=== PATIENT | male | born 1960 | race Caucasian/White ===

== ENCOUNTER 2017-09-19 06:29 | Day surgery (SDC) | payer OTHER ==
--- NOTE | 2017-09-16 14:34 | RAD REPORT ---
EXAM DESCRIPTION: RAD - Chest Pa And Lat (2 Views) - 09/16/2017 1:59 pm CLINICAL HISTORY: Preop chest, pending right mastectomy, history of left mastectomy for carcinoma wi th chemotherapy and radiation, smoking history COMPARISON: Two view chest October 2012 TECHNIQUE: PA and lateral views of the chest were obtained. FINDINGS: The lungs are clear of failure, mass or infiltrate. Surgical clips overlie the left chest from prior left-side chest soft tissues surgery. Slight fullness of the left hilum has not changed. Heart size is normal and central vasculature is within normal limits. No pleural effusion or pneumo thorax seen. No acute bony finding noted. No aortic abnormality. IMPRESSION: No acute cardiopulmonary process. No suspicious change from prior imaging.
[2017-09-16 15:13] LABS: Absolute Lymphocytes (CBC) 1.4 K/uL (0.7-4.9); Absolute Monocytes 0.6 K/uL (0.1-1.3); Absolute Neutrophil 6.4 K/uL (1.8-8.0); Basophils % 0.6 % (0-1.3); Eosinophils % 0.9 % (0-4.4); Hematocrit 43.8 % (39.6-49.0); Lymphocytes % 16.3 % (15.3-44.8); MCH 28.8 pg (27.0-35.0); MCV 87.3 fL (80-100); MPV 8.4 fL (7.6-11.3); Monocytes % 6.8 % (3.3-12.3); RBC Red Blood Cell Count 5.02 M/uL (4.33-5.43)
[2017-09-16 15:27] LABS: Potassium 4.3 mmol/L (3.5-5.1)
[2017-09-19] MEDS ORDERED: CEFAZOLIN SODIUM 1 GM/VIAL ONE (06:34)
[2017-09-19] MEDS ORDERED: Ringers Lactate 1,000 ML IV ONE (06:35)
[2017-09-19] MEDS ORDERED: CEFAZOLIN/SWI 1gm 1 GM/10 ML SYR ONE (06:36)
[2017-09-19] MEDS ORDERED: PROPOFOL 200 MG/20 ML VIAL IV ONE ×2 (06:55→08:47)
[2017-09-19] MEDS ORDERED: LIDOCAINE 2% MPF 5 ML VIAL ONE (06:56)
[2017-09-19] MEDS ORDERED: FENTANYL CITR 250 MCG/5 ML ONE (06:57)
[2017-09-19] MEDS ORDERED: ONDANSETRON HCL 40 MG/20 ML VIAL ONE (06:59)
[2017-09-19] MEDS ORDERED: BUPIVACAINE 0.5% PF 10 ML VIAL ONE (07:12)
[2017-09-19] MEDS ORDERED: MIDAZOLAM HCL 2 MG/2 ML INJ ONE (07:17)
[2017-09-19] MEDS ORDERED: ROCURONIUM 50 MG/5 ML VIAL IV ONE (07:32)
[2017-09-19] MEDS ORDERED: EPHEDRINE SULF 50 MG/5 ML SYR ONE (07:48)
[2017-09-19] MEDS ORDERED: GLYCOPYRROLATE 0.2 MG/ML SYR ONE (08:06)
[2017-09-19] MEDS ORDERED: NEOSTIGMINE 1 MG/ML -5 ML SYRINGE ONE (08:47)
[2017-09-19] MEDS ORDERED: PROMETHAZINE 25 MG/ML VIAL ONE (09:08)
[2017-09-19] MEDS ORDERED: MEPERIDINE HCL 25 MG/0.5 ML ONE (09:12)
[2017-09-19] MEDS: MEPERIDINE HCL 25 MG/0.5 ML ONE ×2 (09:21→09:27)
[2017-09-19] MEDS ORDERED: CODEINE 30MG/APAP 300MG TAB ONE (10:32)
--- NOTE | 2017-09-19 15:54 | OP ---
Date of Procedure: 09/19/2017 Surgeon: Clayton Montemayor MD [employer] Contact Printer: GABI Wade Preoperative Diagnosis: Left breast cancer and BRCA positive. Postoperative Diagnosis: Left breast cancer and BRCA positive. Procedure: Right simple mastectomy. Estimated Blood Loss: Minimal. Specimen: Right breast. Findings: As above. Anesthesia: General. Complications: None. Drains: LORENZO #10 flat. Disposition: The patient tolerated the procedure in stable condition and taken to the Recovery in go od general condition. Operative Note: The patient was brought to the OR and placed in the supine position. General anesth esia was begun. The patient was prepped and draped in the usual sterile fashion. A 15 blade was use d to make an ellipse of skin including the nipple-areolar complex approximately 15 x 6 cm. Subcutane ous tissue divided. Then, flaps created superior to the clavicle medially to the sternal border, inf eriorly to the insertion of the rectus abdominis muscle, and laterally to the latissimus dorsi. Then , all breast tissue off the pectoralis fascia removed and sent to Pathology. After being appropriate level, entire wound was irrigated and bleeding controlled with cautery, and then LORENZO #10 flat drain p laced and secured with 2-0 nylon and then 2-0 chromic and 3-0 chromic used to approximate the subcuta neous tissue and close the skin. Sterile dressing was applied. The patient was awakened and taken t o Recovery in good general condition. Discharge Note: The patient will go to Day Surgery and home when stable. Disposition: Home. Condition: Stable. Discharge Instructions: Resume home meds and diet. Activity as tolerated. No heavy lifting. Keep dressing clean and dry. Sponge bathe only. Record LORENZO output q.12. Tylenol No. 3 one tablet p.o. q. 4 p.r.n. pain, Keflex 500 mg p.o. q.6. followup in my office in 1 week. Call for appointment. /MODL Voice ID: [id number] Report ID: [id number]
== END 2017-09-19 11:23 | disposition home or self-care (01) ==
LOC: OR 06:29
PROVIDERS: ATTEND Surgery
PROC: 0HTT0ZZ Resection of Right Breast, Open Approach (ICD-10-PCS; principal; 2017-09-19 07:30)
DX: N60.91 Unspecified benign mammary dysplasia of right breast (principal); C50.922 Malignant neoplasm of unspecified site of left male breast
CPT/HCPCS: 19303; 36415; 71046; 80048; 85025; 88307; J0690; J2175 ×2; J2250; J2405; J2550; J2710

== ENCOUNTER 2019-08-26 18:49 | Emergency (ER) | payer OTHER ==
--- OUTSIDE RECORDS SUMMARY | 2019-08-26 18:51 | XMS REPORT | Clinical Summary ---
:1960 Author Organization [facility] Address [address] [place] [address] Care Team Providers Name Role Phone KHOA Driver Primary Care Provider Allergies No Known Allergies Medications Medication Sig Dispensed Refills Start Date End Date Status anastrozole (ARIMIDEX) Take 1 mg by mouth 0 Active 1 mg chemo tablet daily. sacubitril-valsartan Take 1 tablet by 0 Active (ENTRESTO) 97-103 mg mouth 2 (two) tablet per tablet times a day. cholecalciferol, Take 1 capsule by 0 Active vitamin D3, (D3-50 mouth once a week. CHOLECALCIFEROL) 50,000 unit capsule magnesium chloride Take by mouth. 0 Active (NU-MAG ORAL) metoprolol succinate Take 25 mg by 0 Active XL (TOPROL-XL) 25 mg mouth daily. 24 hr tablet Active Problems Problem Noted Date Malignant neoplasm of prostate 11/17/2017 Hypotension 11/17/2017 Arrhythmia 11/17/2017 Family History Relation Name Status Comments Father Mother Alive Social History Tobacco Use Types Packs/Day Years Used Date Former Smoker Cigarettes 2 5 Quit: 1988 Smokeless Tobacco: Current User Snuff Alcohol Use Drinks/Week oz/Week Comments No Sex Assigned at Date Recorded Not on file Job Start Date Occupation Industry Not on file Not on file Not on file Travel History Travel Start Travel End No recent travel history available. Last Filed Vital Signs Not on file Plan of Treatment Health Maintenance Due Date Last Done Comments COLONOSCOPY SCREENING 2008 SHINGLES VACCINES (#1) 2008 INFLUENZA VACCINE 10/23/2019 Implants Implanted Type Area Aoc Airspace Control Officer Device Shelf Model / Identifier Expiration Serial / Date Lot Clip Ligtng Hem-O-Bony Endoscpc Aplr [facility] Lg - [id number] Surgic al N/A: N/A WECK CLOSURE 06/16/2022 [id number] / Implanted: 11/17/2017 at [facility] (Quantity not on file) Im plants; SYSTEMS / Expanders; [id number] Extenders; Surgical Wires Clip Ligtng Hem-O-Bony Endoscpc Aplr Plymr Lg - [id number] Surgic al N/A: N/A WECK CLOSURE 06/16/2022 [id number] / Implanted: 11/17/2017 at [facility] (Quantity not on file) Im plants; SYSTEMS / Expanders; [id number] Extenders; Surgical Wires Clip Ligtng Hem-O-Bony Endoscpc Aplr Plymr Lg - [id number] Surgic al N/A: N/A WECK CLOSURE 06/16/2022 [id number] / Implanted: 11/17/2017 at [facility] (Quantity not on file) Im plants; SYSTEMS / Expanders; [id number] Extenders; Surgical Wires Clip Ligtng Hem-O-Bony Endoscpc Aplr Plymr Lg - [id number] Surgic al N/A: N/A WECK CLOSURE 06/16/2022 [id number] / Implanted: 11/17/2017 at [facility] (Quantity not on file) Im plants; SYSTEMS / Expanders; [id number] Extenders; Surgical Wires Drain Wnd Chnl 19fr 4in Rnd Hbls Fl-Flut W/ /4in Tr ocar - [id number] Surgical N/A: N/A ETHICON DIV OF 02/06/2022 [id number] / Implanted: 11/17/2017 at [facility] (Quantity not on file) Im plants; OTILIO & / Expanders; OTILIO [id number] Extenders; Surgical Wires Results Not on fileafter 08/25/2018 Insurance Payer Benefit Plan / Subscriber ID Effective Dates Phone Addre ss Type Group HUMANA MEDICARE HUMANA MEDICARE xxxxxxxxx 2017-Present PPO PPO/PFFS/[facility] [phone] [id number] (Home) [place] [id number] Advance Directives For more information, please contact: [phone] Type Date Recorded Patient Gold Layer Explanati on Advance Directives, Living Will 11/12/2017 1:22 PM and Medical Power of Supervisor Customer Records Division
--- NOTE | 2019-08-26 22:55 | ER ---
Nurse's Notes [facility] Name: Kev Huitron Age: 58 yrs Sex: Male : 1960 Arrival Date: 08/26/2019 Time: 18:52 Bed 18 Private MD: Diagnosis: Pain and bleeding right ear. Visual disturbance ( Diplopia ) Presentation: 08/25 19:00 Chief complaint: Patient states: thinks he has right ear infection, and has been having iw double vision since Friday, can see close up normally. Coronavirus screen: Proceed with normal triage. Patient denies a cough. Patient denies shortness of breath or difficulty breathing. Patient denies measured and/or subjective temperature greater than 100.4F prior to today's visit. Patient denies travel on a cruise ship or to a country the [facility] currently lists as an affected area. Patient denies contact with known and/or suspected case of COVID-19. Ebola Screen: Patient negative for fever greater than or equal to 101.5 degrees Fahrenheit, and additional compatible Ebola Virus Disease symptoms Patient denies exposure to infectious person. Patient denies travel to an Ebola-affected area in the 21 days before illness onset. No symptoms or risks identified at this time. Initial Sepsis Screen: Does the patient meet any 2 criteria? No. Patient's initial sepsis screen is negative. Does the patient have a suspected source of infection? No. Patient's initial sepsis screen is negative. Risk Assessment: Do you want to hurt yourself or someone else? Patient reports no desire to harm self or others. Onset of symptoms was August 24, 2019. 19:00 Method Of Arrival: Ambulatory iw 19:00 Acuity: ANNEMARIE 3 iw Triage Assessment: 20:39 General: Appears in no apparent distress. comfortable, Behavior is calm, cooperative. ls4 Pain: Complains of pain in right ear. EENT: Reports blurred vision in iris of right eye and iris of left eye since one week. states things at a distance are doubled. Neuro: Level of Consciousness is awake, alert, obeys commands, Oriented to person, place, time, situation, Reports blurred vision diplopia, dizziness. Cardiovascular: Denies chest pain, diaphoresis, fatigue, lightheadedness, nausea, palpitations, shortness of breath, syncope, vomiting. Respiratory: No deficits noted. Denies cough, shortness of breath labored breathing. Historical: - Allergies: 19:04 No Known Allergies; iw - Home Meds: 19:04 anastrozole 1 mg oral tab 1 tab once daily [Active]; Vitamin D Oral daily [Active]; iw Vitamin B-12 Oral [Active]; - PMHx: 19:04 Cancer, Breast; prostate cancer; iw - PSHx: 19:04 prostate removed; Mastectomy, Left; iw - Immunization history:: Adult Immunizations up to date. - Social history:: Smoking status: Patient reports use of chewing tobacco. Screenin:21 VAN Screening: Arm Drift: Patient shows no arm weakness. Patient is VAN negative. ls4 20:38 Abuse screen: Denies threats or abuse. Denies injuries from another. Nutritional ls4 screening: No deficits noted. Tuberculosis screening: No symptoms or risk factors identified. Fall Risk None identified. Assessment: 20:20 General: Appears in no apparent distress. comfortable, Behavior is calm, cooperative. ls4 20:20 Neuro: Level of Consciousness is awake, alert, obeys commands, Oriented to person, ls4 place, time, situation, Reports blurred vision diplopia. Cardiovascular: No deficits noted. Respiratory: No deficits noted. GI: No deficits noted. No signs and/or symptoms were reported involving the gastrointestinal system. : No deficits noted. No signs and/or symptoms were reported regarding the genitourinary system. EENT: Ear canal w/ drainage noted from right ear Reports pain in right ear. Derm: No deficits noted. No signs and/or symptoms reported regarding the dermatologic system. Musculoskeletal: No deficits noted. No signs and/or symptoms reported regarding the musculoskeletal system. 21:30 Reassessment: Patient appears in no apparent distress at this time. Patient and/or ls4 family updated on plan of care and expected duration. Pain level reassessed. Patient is alert, oriented x 3, equal unlabored respirations, skin warm/dry/pink. Patient denies pain at this time. Vital Signs: 19:00 BP 116 / 89; Pulse 51; Resp 16; Temp 98.5; Pulse Ox 98% on R/A; Weight 128.37 kg; iw Height 6 ft. 1 in. (185.42 cm); 22:04 BP 122 / 90; Pulse 59; Resp 18; Pulse Ox 98% on R/A; Pain 0/10; ls4 19:00 Body Mass Index 37.34 (128.37 kg, 185.42 cm) iw Visual Acuity: 22:04 Left Eye Visual acuity 20/30, Normal; Right Eye Visual acuity 20/30, Normal; Both Eyes ls4 Visual acuity 20/30; Without Lenses; ED Course: 18:52 Patient arrived in ED. ag5 19:02 Triage completed. iw 19:04 Arm band placed on. iw 20:20 Martine Tyson, RN is Primary Nurse. ls4 20:21 cardiac monitor on. Pulse ox on. NIBP on. ls4 20:21 Verbal reassurance given. Diet: Patient is NPO. ls4 20:21 EKG done, by ED staff, reviewed by Hunter Lo MD. Patient maintains SpO2 saturation ls4 greater than 95% on room air. 20:38 Patient has correct armband on for positive identification. Bed in low position. Call ls4 light in reach. Side rails up X 1. 21:10 Hunter Lo MD is Attending Physician. pkl 22:02 CT Head Brain wo Cont In Process Unspecified. EDMS 23:21 No provider procedures requiring assistance completed. ls4 Administered Medications: 23:11 Drug: Cipro 500 mg Route: PO; ls4 23:19 Follow up: Response: No adverse reaction ls4 Outcome: 22:53 Discharge ordered by . pkl 23:20 Discharged to home ambulatory. ls4 23:20 Condition: good 23:20 Discharge instructions given to patient, Instructed on discharge instructions, follow up and referral plans. medication usage, Demonstrated understanding of instructions, follow-up care, medications, Prescriptions given X 1, PT QUESTIONED WHY DOCTOR PRESCRIBED ORAL ANTIBIOTICS HE WAS TOLD BY DR LO THAT HE WOULD BE GETTING EAR DROPS. WHEN I ASKED DR LO HE STATED THEY WERE FOR HIS EAR. I LET DR LO KNOW THAT PATIENT WAS ASKING IF THERE WAS A REASON WHY HE WAS TOLD HE WAS GETTING DROPS AND GOT "PILLS" INSTEAD. DR LO STATED THAT HE WAS CONCERNED PT HAD A PUNCTURED EAR DRUM AND THAT HE NEEDS TO SEE ENT DOCTOR TO BE SURE. THIS WAS RELAYED TO PATIENT AND PT STATED HE WOULD FOLLOW UP WITH ENT 23:21 Patient left the ED. ar5 Signatures: Dispatcher [employer] EDMS Hunter Lo MD MD pkl Mame Boyd RN RN iw Martine Tyson RN RN ls4 Patricia Moreira ar5 Hilario Sawyer ag5 Corrections: (The following items were deleted from the chart) 08/26 13:53 08/25 23:11 Response: No adverse reaction; Marked relief of symptoms tony boo4
--- NOTE | 2019-08-26 22:55 | EDPHYS ---
Physician Documentation [facility] Name: Kev Huitron Age: 58 yrs Sex: Male : 1960 Arrival Date: 08/26/2019 Time: 18:52 Bed 18 Private MD: ED Physician Hunter Luis HPI: 08/25 21:23 This 58 yrs old Male presents to ER via Ambulatory with complaints of Vision pkl Problem, Ear Pain. 21:23 The patient presents with pain, that is acute. The complaints affect the right ear. pkl Onset: The symptoms/episode began/occurred 4 day(s) ago. Associated signs and symptoms: Pertinent positives: Having double vision for 4 days. Historical: - Allergies: 19:04 No Known Allergies; iw - Home Meds: 19:04 anastrozole 1 mg oral tab 1 tab once daily [Active]; Vitamin D Oral daily [Active]; iw Vitamin B-12 Oral [Active]; - PMHx: 19:04 Cancer, Breast; prostate cancer; iw - PSHx: 19:04 prostate removed; Mastectomy, Left; iw - Immunization history:: Adult Immunizations up to date. - Social history:: Smoking status: Patient reports use of chewing tobacco. ROS: 21:23 Neck: Negative for injury, pain, and swelling. pkl 21:23 Eyes: Positive for double vision. 21:23 ENT: Positive for ear pain, Bleeding from right ear after using Q tip. 21:23 Cardiovascular: Negative for chest pain. 21:23 Respiratory: Negative for cough, shortness of breath. 21:23 Abdomen/GI: Negative for abdominal pain, nausea, vomiting, and diarrhea. 21:23 Back: Negative for acute changes. 21:23 : Negative for urinary symptoms. 21:23 MS/extremity: Negative for acute changes. 21:23 Skin: Negative for rash. 21:23 Neuro: Negative for altered mental status. Exam: 21:23 Head/Face: Normocephalic, atraumatic. pkl 21:23 Eyes: Periorbital structures: appear normal, Pupils: no acute changes, normal size, Extraocular movements: no acute changes, Conjunctiva: normal, Corneas: are normal, Visual bello: no acute changes, Nystagmus: is not appreciated. 21:23 ENT: External ear(s): Ear canal(s): bleeding, that is minimal, in the right canal, TM's: possible tear. 21:23 Neck: Exam negative for nuchal rigidity. 21:23 Chest/axilla: Exam negative for acute changes. 21:23 Cardiovascular: Rate: normal, Rhythm: regular. 21:23 Respiratory: the patient does not display signs of respiratory distress, Respirations: normal, Breath sounds: are clear throughout. 21:23 Abdomen/GI: Exam negative for acute changes. 21:23 Back: Exam negative for acute changes. 21:23 : Exam negative for acute changes. 21:23 Musculoskeletal/extremity: Exam is negative for acute changes. 21:23 Skin: Exam negative for rash. 21:23 Neuro: Orientation: is normal, Mentation: is normal, Cranial nerves: grossly normal, Motor: is normal. Vital Signs: 19:00 BP 116 / 89; Pulse 51; Resp 16; Temp 98.5; Pulse Ox 98% on R/A; Weight 128.37 kg; iw Height 6 ft. 1 in. (185.42 cm); 22:04 BP 122 / 90; Pulse 59; Resp 18; Pulse Ox 98% on R/A; Pain 0/10; ls4 19:00 Body Mass Index 37.34 (128.37 kg, 185.42 cm) iw Visual Acuity: 22:04 Left Eye Visual acuity 20/30, Normal; Right Eye Visual acuity 20/30, Normal; Both Eyes ls4 Visual acuity 20/30; Without Lenses; MDM: 21:10 Patient medically screened. pkl 22:49 Data reviewed: vital signs, nurses notes, radiologic studies, CT scan. ED course: pkl Discussed CT Scan result. Advised to follow up with Dr. Letty Goff ( Ophthalmology ) and Dr. Fierro ( ENT ) in 2 to 3 days. Patient understood instructions.. 08/25 21:07 Order name: Stroke Swallow Screen; Complete Time: 21:09 4 08/25 21:07 Order name: EKG; Complete Time: 21:08 4 08/25 21:07 Order name: Cardiac monitoring; Complete Time: 21:08 4 08/25 21:07 Order name: EKG - Nurse/Tech; Complete Time: 21:08 4 08/25 21:07 Order name: IV Saline Lock; Complete Time: 21:08 4 08/25 21:07 Order name: Labs collected and sent; Complete Time: 21:08 4 08/25 21:22 Order name: CT Head Brain wo Cont pkl 08/25 21:07 Order name: NPO; Complete Time: 21:08 4 08/25 21:07 Order name: O2 Per Protocol; Complete Time: 21:08 4 04 21:07 Order name: O2 Sat Monitoring; Complete Time: 21:08 4 08/25 21:22 Order name: Visual Acuity; Complete Time: 21:50 pkl Administered Medications: 23:11 Drug: Cipro 500 mg Route: PO; 4 23:19 Follow up: Response: No adverse reaction ls4 Disposition: 08/26/19 22:53 Discharged to Home. Impression: Pain and bleeding right ear. Visual disturbance ( Diplopia ). - Condition is Stable. - Prescriptions for Cipro 500 mg Oral Tablet - take 1 tablet by ORAL route every 12 hours for 7 days; 14 tablet. - Medication Reconciliation Form, Thank You Letter, Antibiotic Education, Prescription Opioid Use form. - Follow up: Private Physician; When: 2 - 3 days; Reason: Re-evaluation by your physician. - Problem is new. - Symptoms are unchanged. Signatures: Dispatcher [employer] EDLA Hunter Luis MD MD pkMame Ling RN RN iw Martine Tyson RN RN ls4 Patricia Moreira ar5 Corrections: (The following items were deleted from the chart) 21: 21:07 HEPATIC FUNCTION+C.LAB.BRZ ordered. [facility] 21:07 TROPONIN (EMERG DEPT USE ONLY)+C.LAB.BRZ ordered. [facility] : 21:07 BASIC METABOLIC PANEL+C.LAB.BRZ ordered. [facility] : 21:07 CBC+H.LAB.BRZ ordered. [facility] : 21:07 PROTIME (+INR)+COAG.LAB.BRZ ordered. [facility] : 21:07 PTT, ACTIVATED+COAG.LAB.BRZ ordered. [facility] 23:21 22:53 08/26/2019 22:53 Discharged to Home. Impression: Pain and bleeding right ear. ar5 Visual disturbance ( Diplopia ). Condition is Stable. Forms are Medication Reconciliation Form, Thank You Letter, Antibiotic Education, Prescription Opioid Use. Follow up: Private Physician; When: 2 - 3 days; Reason: Re-evaluation by your physician. Problem is new. Symptoms are unchanged. pkl
[2019-08-26] MEDS ORDERED: CIPROFLOXACIN HCL 500 MG TAB ONE (23:13)
[2019-08-26 23:26] VITALS: BP 116/89; TEMP 98.5; O2SAT 98
--- NOTE | 2019-08-27 11:52 | EKG ---
Test Date: 2019-08-26 Test Time: 20:41:27 Track Grinder Operator: MAURICIO MEASUREMENT RESULTS: Intervals: Rate: 76 IN: 162 QRSD: 94 QT: 364 QTc: 409 [place]: P: 24 IN: 162 QRS: -15 T: 28 INTERPRETIVE STATEMENTS: Sinus rhythm with frequent premature ventricular complexes Minimal voltage criteria for LVH, may be normal variant Borderline ECG Compared to ECG 09/19/2016 09:23:07 Ventricular premature complex(es) now present Left ventricular hypertrophy now present Sinus bradycardia no longer present Sinus arrhythmia no longer present Electronically Signed On 08-27-19 11:50:14 CDT by Marino Dewitt
--- NOTE | 2019-08-27 21:14 | RAD REPORT ---
EXAM DESCRIPTION: CT Head Without Intravenous Contrast CLINICAL HISTORY: The patient is 58 years old and is Male; Diplopia TECHNIQUE: Axial computed tomography images of the head/brain without intravenous contrast. Sagitt al and coronal reformatted images were created and reviewed. This CT exam was performed using one o r more of the following dose reduction techniques: automated exposure control, adjustment of the mA and/or kV according to patient size, and/or use of iterative reconstruction technique. COMPARISON: No relevant prior studies available. FINDINGS: BRAIN: Unremarkable. The bailey-white matter differentiation is preserved . No hemorrhag e. No significant white matter disease. No edema. No extra-axial fluid collections. VENTRICLES: Unremarkable. No ventriculomegaly. BONES/JOINTS: No acute fracture. SOFT TISSUES: Unremarkable. SINUSES: Unremarkable as visualized. No acute sinusitis. MASTOID AIR CELLS: Unremarkable as visualized. No mastoid effusion. ORBITS: Unremarkable as visualized. IMPRESSION: No acute intracranial findings. The optic nerves appear symmetric. However, if there is continued c oncern, dedicated MRI of the orbits is recommended. Electronically signed by: Zena Ross MD 08/26/2019 10:11 PM CDT Due to temporary technical issues with the PACS/Fluency reporting system, reports are being signed by the in house radiologist without review a sa courtesy to ensure prompt reporting. The interpreting r adiologist is fully responsible for the content of the report.
== END 2019-08-26 23:21 | disposition home or self-care (01) ==
LOC: ER 18:49
DX: H92.21 Otorrhagia, right ear (principal); H53.2 Diplopia; Z85.46 Personal history of malignant neoplasm of prostate; Z85.3 Personal history of malignant neoplasm of breast; Z72.0 Tobacco use
CPT/HCPCS: 70450; 93005; 99285

== ENCOUNTER 2020-08-24 22:03 | Observation (INO) | payer OTHER ==
[2020-08-24 23:24] LABS: Absolute Lymphocytes (CBC) 1.5 K/uL (0.7-4.9); Basophils % 0.6 % (0-1.3); Hematocrit 42.8 % (39.6-49.0); Lymphocytes % 20.1 % (15.3-44.8); MPV 8.2 fL (7.6-11.3); RBC Red Blood Cell Count 4.99 M/uL (4.33-5.43)
[2020-08-24 23:32] LABS: Protime INR 1.01
[2020-08-24] MEDS ORDERED: MORPHINE 2 MG/ML SYR ONE (23:34)
[2020-08-24] MEDS ORDERED: ASPIRIN 81 MG CHEWABLE TABLET ONE (23:34)
[2020-08-24 23:45] LABS: ALT/SGPT 25 U/L (12-78); AST/SGOT 15 U/L (15-37); Albumin 3.7 g/dL (3.4-5.0); Alkaline Phosphatase 54 U/L (45-117); BUN Blood Urea Nitrogen 28 mg/dL (7-18); Bicarbonate 26 mmol/L (21-32); Bilirubin Direct < 0.1 mg/dL (0-0.2); Bilirubin Total 0.3 mg/dL (0.2-1.0); Glucose Level 107 mg/dL (74-106); Magnesium 1.7 mg/dL (1.8-2.4); NT PRO-BNP 64 pg/mL (<125); Potassium 3.8 mmol/L (3.5-5.1); Protein, Total 6.8 g/dL (6.4-8.2); Sodium Level 142 mmol/L (136-145); Troponin (Emerg Dept Use Only) 0.05 ng/mL (0.0-0.045)
--- NOTE | 2020-08-25 01:20 | ER ---
Nurse's Notes [facility] Name: Kev Huitron Age: 59 yrs Sex: Male : 1960 Arrival Date: 08/24/2020 Time: 22:05 Bed 17 Private MD: Diagnosis: Chest pain, unspecified Presentation: 08/24 22:15 Chief complaint: Patient states: Pt reports L neck and chest pain, lightheadness over ad5 past week, saw PCP today and scheduled outpt for stress test, Echo and CT scan later this month. Pt spouse reports pt with "indigestion" /"burping" after eating earlier today, "I know that could be a sign of a heart attack". Denies SOB, palpitations or other c/o. Resp even/unlabored, skin pwd. Coronavirus screen: At this time, the client does not indicate any symptoms associated with coronavirus-19. Ebola Screen: No symptoms or risks identified at this time. Initial Sepsis Screen: Does the patient meet any 2 criteria? No. Patient's initial sepsis screen is negative. Does the patient have a suspected source of infection? No. Patient's initial sepsis screen is negative. Risk Assessment: Do you want to hurt yourself or someone else? Patient reports no desire to harm self or others. Onset of symptoms is unknown. 22:15 Method Of Arrival: Ambulatory ad5 23:07 Acuity: ANNEMARIE 3 ea Triage Assessment: 22:21 General: Appears in no apparent distress. Behavior is calm, cooperative, appropriate ad5 for age. Pain: Complains of pain in L chest, L neck. Neuro: No deficits noted. Cardiovascular: Reports chest pain, lightheadedness. Respiratory: No deficits noted. Historical: - Allergies: 22:21 No Known Allergies; ad5 - Home Meds: 22:21 anastrozole 1 mg Oral tab 1 tab once daily [Active]; Vitamin D Oral daily [Active]; ad5 - PMHx: 22:21 Cancer, Breast; Prostate Cancer; ad5 - Immunization history:: Adult Immunizations unknown. - Social history:: Smoking status: Patient reports use of chewing tobacco. Screenin:48 Abuse screen: Denies threats or abuse. Nutritional screening: No deficits noted. ea Tuberculosis screening: No symptoms or risk factors identified. Fall Risk None identified. Assessment: 23:07 General: Appears uncomfortable, Behavior is calm, cooperative, appropriate for age. ea Pain: Complains of pain in chest. Neuro: Level of Consciousness is awake, alert, obeys commands, Oriented to person, place, time. Cardiovascular: Patient's skin is warm and dry. Respiratory: Airway is patent Respiratory effort is even, unlabored, Respiratory pattern is regular, symmetrical. Derm: Skin is pink, warm \\T\\ dry. 08/25 00:56 Reassessment: Patient and/or family updated on plan of care and expected duration. Pain ea level reassessed. Patient is alert, oriented x 3, equal unlabored respirations, skin warm/dry/pink. Awaiting on CT results. Vital Signs: 08/24 22:15 BP 132 / 98; Pulse 79; Resp 16 S; Temp 96.4(TE); Pulse Ox 94% on R/A; Weight 126.1 kg; ad5 Height 6 ft. 1 in. (185.42 cm); Pain 5/10; 08/25 00:00 BP 162 / 91; Pulse 80; Resp 18; Pulse Ox 98% on R/A; ea 08/24 22:15 Body Mass Index 36.68 (126.10 kg, 185.42 cm) ad5 ED Course: 08/24 22:05 Patient arrived in ED. es 22:22 Arm band placed on left wrist. ad5 22:42 Noemy Ramos, JOSE C is Primary Nurse. ea 22:48 Mark Oliva PA is PHCP. cp 22:48 Hunter Luis MD is Attending Physician. cp 22:49 Patient has correct armband on for positive identification. Bed in low position. Call ea light in reach. Side rails up X2. 23:06 Inserted saline lock: 20 gauge in left forearm, using aseptic technique. ea 23:07 Triage completed. ea 08/25 00:32 CT Aorta for Dissection In Process Unspecified. EDMS 01:20 Leif Morel is Hospitalizing Provider. cp 02:12 No provider procedures requiring assistance completed. Patient admitted, IV remains in ea place. Administered Medications: 08/24 23:20 Drug: morphine 2 mg Route: IVP; Site: left antecubital; ea 08/25 01:07 Follow up: Response: No adverse reaction ea 08/24 23:20 Drug: Aspirin Chewable Tablet 324 mg Route: PO; ea 08/25 01:07 Follow up: Response: No adverse reaction ea 01:58 Drug: Magnesium Sulfate 1 grams Route: IVPB; Infused Over: 1 hrs; Site: left ea antecubital; 02:21 Drug: Lovenox (enoxaparin) 100 mg Route: Sub-Q; Site: right lower abdomen; ea Outcome: 01:20 Decision to Hospitalize by Provider. cp 02:21 Admitted to ER Hold. Please see [facility] for further documentation. ea 02:21 Condition: stable 02:21 Instructed on the need for admit. 17:58 Patient left the ED. kl Signatures: Dispatcher [employer] Mag Veloz RN RN kl Salyer, Edna es Page, Corey, PA PA cp Antunez, Elena RN RN Sathish Carrillo
--- NOTE | 2020-08-25 01:20 | EDPHYS ---
Physician Documentation [facility] Name: Kev Huitron Age: 59 yrs Sex: Male : 1960 Arrival Date: 08/24/2020 Time: 22:05 Bed 17 Private MD: ED Physician Hunter Luis HPI: 08/24 23:10 This 59 yrs old Male presents to ER via Ambulatory with complaints of Neck cp Pain, <24hrs Old, Shoulder Pain, Chest Pain. 23:10 The patient or guardian reports chest pain that is located primarily in the anterior cp chest wall, left. 23:10 Onset: 3 day(s) ago. cp 23:10 The pain radiates to left neck. cp 23:10 The chest pain is described as aching. Duration: The patient or guardian reports cp multiple episodes, that are intermittent. 23:10 Associated signs and symptoms: Pertinent positives: pain of back between shoulder cp blades, intermittent weakness of legs, Pertinent negatives: abdominal pain, cough, lower extremity pain, lower extremity swelling, palpitations, syncope. Modifying factors: the symptoms are aggravated by activity, deep breath, bending forward. Historical: - Allergies: 22:21 No Known Allergies; ad5 - Home Meds: 22:21 anastrozole 1 mg Oral tab 1 tab once daily [Active]; Vitamin D Oral daily [Active]; ad5 - PMHx: 22:21 Cancer, Breast; Prostate Cancer; ad5 - Immunization history:: Adult Immunizations unknown. - Social history:: Smoking status: Patient reports use of chewing tobacco. ROS: 23:15 Constitutional: Negative for body aches, chills, fever, poor PO intake. cp 23:15 Cardiovascular: Positive for chest pain, Negative for edema, palpitations. cp 23:15 Eyes: Negative for injury, pain, redness, and discharge. cp 23:15 Respiratory: Negative for cough, wheezing. cp 23:15 Abdomen/GI: Negative for abdominal pain, nausea, vomiting, and diarrhea. 23:15 Back: Positive for pain at rest, pain with movement, of the between shoulder blades. 23:15 Neuro: Positive for intermittent weakness of legs, Negative for altered mental status, cp headache, speech changes, syncope. 23:15 All other systems are negative. cp Exam: 22:35 ECG was reviewed by the Attending Physician. cp 23:20 Constitutional: The patient appears in no acute distress, alert, awake, cp non-diaphoretic, non-toxic, well developed, well nourished, obese. 23:20 Head/Face: Normocephalic, atraumatic. cp 23:20 Eyes: Periorbital structures: appear normal, Conjunctiva: normal, no exudate, no injection, Sclera: no appreciated abnormality, Lids and lashes: appear normal, bilaterally. 23:20 ENT: External ear(s): are unremarkable, Nose: is normal, Posterior pharynx: Airway: no evidence of obstruction, patent. 23:20 Neck: ROM/movement: is normal, is supple, no meningismus, no nuchal rigidity. 23:20 Chest/axilla: Inspection: normal, Palpation: is normal, no crepitus, no tenderness. 23:20 Cardiovascular: Rate: normal, Rhythm: regular, Pulses: Pulses are 2+ in right radial artery and left radial artery. Heart sounds: murmur, not appreciated, Edema: is not appreciated, JVD: is not appreciated. 23:20 Respiratory: the patient does not display signs of respiratory distress, Respirations: normal, no use of accessory muscles, no retractions, labored breathing, is not present, Breath sounds: are clear throughout, no decreased breath sounds, no stridor, no wheezing. 23:20 Abdomen/GI: Inspection: obese Palpation: abdomen is soft and non-tender, in all quadrants. 23:20 Back: pain, that is mild, of the between shoulder blades, ROM is painful, with all movement. 23:20 Skin: no rash present. 23:20 Neuro: Orientation: to person, place \T\ time. Mentation: is normal, Motor: moves all fours, strength is normal, Sensation: is normal. Vital Signs: 22:15 BP 132 / 98; Pulse 79; Resp 16 S; Temp 96.4(TE); Pulse Ox 94% on R/A; Weight 126.1 kg; ad5 Height 6 ft. 1 in. (185.42 cm); Pain 5/10; 08/25 00:00 BP 162 / 91; Pulse 80; Resp 18; Pulse Ox 98% on R/A; ea 08/24 22:15 Body Mass Index 36.68 (126.10 kg, 185.42 cm) ad5 MDM: 08/24 23:04 Patient medically screened. cp 06/ 01:15 The patient was given aspirin in the Emergency Department. cp 01:15 Data reviewed: vital signs, nurses notes, lab test result(s), EKG, radiologic studies, cp CT scan, and as a result, I will discharge patient. Test interpretation: by ED physician or midlevel provider: ECG. 01:30 Physician consultation: Ronnie COUCH was called at 01:15, was contacted at 01:15, cp regarding admission, to the telemetry unit. patient's condition. 03 23:05 Order name: Basic Metabolic Panel cp 08/24 23:05 Order name: CBC with Diff; Complete Time: 23:40 cp / 23:40 Interpretation: Reviewed. cp 08/24 23:05 Order name: LFT's; Complete Time: 23:55 cp 08/24 23:05 Order name: Magnesium; Complete Time: 23:55 cp 08/24 23:05 Order name: NT PRO-BNP; Complete Time: 23:55 cp 08/24 23:05 Order name: PT-INR; Complete Time: 23:55 cp 08/24 23:05 Order name: Troponin (emerg Dept Use Only); Complete Time: 23:55 cp / 23:55 Interpretation: Abnormal: TROPED 0.05. cp / 23:05 Order name: D-Dimer; Complete Time: 23:55 cp /03 23:06 Order name: Basic Metabolic Panel; Complete Time: 23:55 EDMS 04 01:02 Interpretation: Normal except: CL 110; GLUC 107; BUN 28; GFR 87. cp /04 04:36 Order name: SARS-COV-2 RT PCR; Complete Time: 16:45 EDMS /04 08:10 Order name: Comprehensive Metabolic Panel; Complete Time: 16:45 EDMS /04 08:10 Order name: Troponin I; Complete Time: 16:45 EDMS /04 08:10 Order name: Lipid Profile; Complete Time: 16:45 EDMS /03 22:33 Order name: EKG - Nurse/Tech; Complete Time: 22:33 ad5 08/24 23:05 Order name: EKG; Complete Time: 23:06 cp 08/24 23:05 Order name: Cardiac monitoring; Complete Time: 23:21 cp 06/03 23:05 Order name: IV Saline Lock; Complete Time: 23:21 cp 08/24 23:56 Order name: CT Aorta for Dissection; Complete Time: 16:45 cp 08/25 02:58 Order name: CONS Physician Consult EDSC 08/25 08:10 Order name: T4 Free; Complete Time: 16:45 EDMS 08/25 08:10 Order name: Thyroid Stimulating Hormone; Complete Time: 16:45 EDMS 08/25 08:37 Order name: Urinalysis; Complete Time: 16:45 EDMS 08/25 09:44 Order name: Phosphorus; Complete Time: 16:45 EDMS 08/25 09:44 Order name: Magnesium; Complete Time: 16:45 EDMS 08/25 12:13 Order name: Troponin I; Complete Time: 16:45 EDMS 08/24 23:05 Order name: Labs collected and sent; Complete Time: 23:21 cp 08/24 23:05 Order name: O2 Per Protocol; Complete Time: 23:21 cp 08/24 23:05 Order name: O2 Sat Monitoring; Complete Time: 23:21 cp EC/03 22:35 Rate is 80 beats/min. Rhythm is regular. DE interval is normal. QRS interval is normal. cp QT interval is normal. Interpreted by me. Reviewed by me. Administered Medications: 23:20 Drug: morphine 2 mg Route: IVP; Site: left antecubital; ea 08/25 01:07 Follow up: Response: No adverse reaction 08/24 23:20 Drug: Aspirin Chewable Tablet 324 mg Route: PO; ea 08/25 01:07 Follow up: Response: No adverse reaction 01:58 Drug: Magnesium Sulfate 1 grams Route: IVPB; Infused Over: 1 hrs; Site: left ea antecubital; 02:21 Drug: Lovenox (enoxaparin) 100 mg Route: Sub-Q; Site: right lower abdomen; ea Disposition: 08/25/20 01:20 Hospitalization ordered by Leif Morel for Observation. Preliminary diagnosis is Chest pain, unspecified. - Bed requested for Telemetry/MedSurg (observation). - Status is Observation. kl - Condition is Stable. - Problem is new. - Symptoms have improved. Signatures: Dispatcher [employer] [facility] Juan, Mag, RN RN kl Charles, Kay, RN Mark Barcenas PA PA cp Antunez, Elena, RN RN ea Davidson, Andrea ad5 Corrections: (The following items were deleted from the chart) 01:39 01:20 Hospitalization Ordered by Leif Morel for Observation. Preliminary diagnosis mw is Chest pain, unspecified. Bed requested for Telemetry/MedSurg (observation). Status is Observation. Condition is Stable. Problem is new. Symptoms have improved. cp 02:45 01:17 CORONAVIRUS+MR.LAB.BRZ ordered. EDMS EDMS 16:51 08/24 23:15 Respiratory: Positive for shortness of breath, Negative for cough, cp wheezing, cp 08/25 16:51 08/24 23:15 All other systems are negative, cp cp 08/25 17:21 01:39 08/25/2020 01:20 Hospitalization Ordered by Leif Morel for Observation. kl Preliminary diagnosis is Chest pain, unspecified. Bed requested for [facility]UST ER HOLD. Status is Observation. Condition is Stable. Problem is new. Symptoms have improved. mw 17:58 17:21 08/25/2020 01:20 Hospitalization Ordered by Leif Morel for Observation. kl Preliminary diagnosis is Chest pain, unspecified. Bed requested for Telemetry/MedSurg (observation). Status is Observation. Condition is Stable. Problem is new. Symptoms have improved. kl
[2020-08-25] MEDS ORDERED: Magnesium Sulfate 2gm IVPB 2 G/50 ML BAG IV ONE (02:05)
[2020-08-25] MEDS ORDERED: ENOXAPARIN 100 MG/ML SYR SQ ONE (02:30)
[2020-08-25 03:28] VITALS: BMI 36.6
--- NOTE | 2020-08-25 05:02 | P.HP ---
Certification for Inpatient Patient admitted to: Observation With expected LOS: <2 Midnights Patient will require the following post-hospital care: None Practitioner: I am a practitioner with admitting privileges, knowledge of patient current condition, hospital course, and medical plan of care. Services: Services provided to patient in accordance with Admission requirements found in Title 42 Section 412.3 of the Code of Federal Regulations Patient History Date of Service: 08/25/20 Primary Care Provider: Dr. Chambers Reason for admission: chest pain r/o History of Present Illness: This is a 59 y/o M w/ hx of breast cancer s/p masectomy and prostate cancer s/p prostatectomy who presents today w/ substernal chest pain radiating from neck. He reports the pain started approx 2 weeks ago and feels like the pain starts pulling around his neck when he gets up to stand. Reports some pain relief when laying down. He c/o an upset stomach similar to indigestion, dry cough for several weeks, and episodes of feeling weak and has to sit down. He denies any nausea, vomiting, wheezing, dizziness, lightheadedness. Troponin 0.05, BUN 28. Pt was initially scheduled outpatient w/ Dr. Dewitt for stress test, echo, and CT scan later this month. Will admit for observation due to patient's new complaints of chest pain. CT scan shows "5.0 x3.6 x4.5 cm mass in the superior/anterior mediastinum just anterior to the aortic arch and below the first rib. 1.7 cm lymph nodes in the mediastinum adjavent to the left main pulmonary artery. scattered other small but irregular appearing lymph nodes in the mediastinum. clips in the left axilla. mulitple low-density lesions in the liver measuring up to 1.4 cm in the left lobe. Cannot exclude metastatic disease." Allergies No Known Allergies Allergy (Verified 09/16/17 13:28) Home Medications: Anastrozole [Arimidex] 1 mg PO DAILY 09/16/17 Calcium Carbonate/Vitamin D3 [Calcium 500 + Vit D3 400 Tab] 1 each PO DAILY 09/16/17 Sacubitril/Valsartan [Entresto 97 mg-103 mg Tablet] 1 each PO BID 09/16/17 Trastuzumab [Herceptin] 150 mg IV ONCE 09/16/17 - Past Medical/Surgical History -: prostate cancer -: breast cancer -: masectomy -: prostatectomy -: knees surgery -: back surgery - Family History Family History: Reviewed- Non-Contributory - Family History Sister -: Cancer (breast, stomach) - Social History Smoking Status: Current every day smoker Alcohol use: No CD- Drugs: No Caffeine use: No Place of Residence: Home Review of Systems 10-point ROS is otherwise unremarkable Cardiovascular: As per HPI Physical Examination - Vital Signs Temperature: 97.6 F Blood Pressure: 152/92 Pulse: 58 Respirations: 18 Pulse Ox (%): 95 - Physical Exam General: Alert, In no apparent distress HEENT: Atraumatic, PERRLA, Mucous membr. moist/pink, EOMI, Sclerae nonicteric Neck: Supple, No LAD Respiratory: Clear to auscultation bilaterally, Normal air movement Cardiovascular: Regular rate/rhythm, Normal S1 S2 Capillary refill: <2 Seconds Gastrointestinal: Normal bowel sounds, Soft and benign, Non-distended, No tenderness, No guarding Musculoskeletal: No tenderness Integumentary: No rashes Neurological: Normal speech, Normal tone, Normal affect - Studies Laboratory Data (last 24 hrs) 08/24/20 23:01: PT 12.0, INR 1.01 08/24/20 23:01: WBC 7.30, Hgb 14.4, Hct 42.8, Plt Count 218 08/24/20 23:01: Sodium 142, Potassium 3.8, BUN 28 H, Creatinine 0.89, Glucose 107 H, Magnesium 1.7 L, Total Bilirubin 0.3, AST 15, ALT 25, Alkaline Phosphatas e 54 Assessment and Plan - Problems (Diagnosis) (1) Chest pain Current Visit: Yes Status: Acute Qualifiers: Chest pain type: unspecified Qualified Code(s): R07.9 - Chest pain, unspecified (2) History of breast cancer Current Visit: Yes Status: Chronic (3) History of prostate cancer Current Visit: Yes Status: Chronic (4) Abnormal CT scan Current Visit: Yes Status: Acute - Plan admit for chest pain rule out ordered echo for tomorrow morning repeat ekg continuous telemetry initial troponin 0.05, trend troponins x2 IV bolus for elevated BUN consult cardiology incidental findings on CT scan suspicious for mets. will consult oncology Discharge Plan: Home Plan to discharge in: 24 Hours - Advance Directives Does patient have a Living Will: No Does patient have a Durable POA for Healthcare: No - Code Status/Comfort Care Code Status: Full Code Time Spent Managing Pts Care (In Minutes): 70
[2020-08-25] MEDS: NA CHLORIDE 0.9% 1,000 ML IV SCH ×2 (07:18→09:41)
[2020-08-25] MEDS ORDERED: ACETAMINOPHEN 500 MG TAB PO PRN (07:18)
[2020-08-25] MEDS ORDERED: MORPHINE 2 MG/ML SYR IV PRN (07:18)
[2020-08-25] MEDS ORDERED: NITROGLYCERIN 0.4 MG/TAB SL PRN (07:18)
[2020-08-25 08:08] LABS: ALT/SGPT 28 U/L (12-78); Albumin 3.8 g/dL (3.4-5.0); Alkaline Phosphatase 55 U/L (45-117); BUN Blood Urea Nitrogen 22 mg/dL (7-18); Bicarbonate 30 mmol/L (21-32); Bilirubin Total 0.6 mg/dL (0.2-1.0); Glucose Level 92 mg/dL (74-106); HDL Cholesterol 44 mg/dL (40-60); LDL Cholesterol, Calculated 123 (<130); Protein, Total 7.1 g/dL (6.4-8.2); Sodium Level 142 mmol/L (136-145); Troponin I 0.06 ng/mL (0.0-0.045)
[2020-08-25 08:09] LABS: Potassium 4.4 mmol/L (3.5-5.1)
[2020-08-25 08:10] LABS: AST/SGOT 17 U/L (15-37)
[2020-08-25 08:25] LABS: Urine Appearance CLEAR (Clear); Urine Bilirubin NEGATIVE (Negative); Urine Blood NEGATIVE (Negative); Urine Color YELLOW (Yellow); Urine Glucose NEGATIVE (Negative); Urine Protein NEGATIVE (Negative); Urine Specific Gravity >=1.030 (1.005-1.030); Urine Urobilinogen 0.2 mg/dL (0.2-1.0); Urine pH 5.5 (5.0-7.0)
[2020-08-25 08:36] LABS: Urine Microscopic Reflex NO UMIC
[2020-08-25] MEDS: ENOXAPARIN 40 MG/0.4 ML SQ SCH (09:00)
[2020-08-25 09:09] LABS: Phosphorus 3.2 mg/dL (2.5-4.9)
[2020-08-25] MEDS ORDERED: ENOXAPARIN 40 MG/0.4 ML SQ ONE (09:41)
[2020-08-25 09:44] LABS: Magnesium 1.9 mg/dL (1.8-2.4)
[2020-08-25] MEDS ORDERED: NA CHLORIDE 0.9% 1,000 ML ONE (10:00)
--- NOTE | 2020-08-25 11:29 | ECHO ---
HEIGHT: 6 ft 1 in WEIGHT: 278 lb 0.047 oz DATE OF STUDY: 08/25/[address]: Ronnie Arellano 2-DIMENSIONAL: YES M.MODE: YES DOPPLER: YES COLOR FLOW: YES TDS: YES PORTABLE: NO DEFINITY: NO BUBBLE STUDY: NO DIAGNOSIS: CHEST PAIN CARDIAC HISTORY: CATHERIZATION: NO SURGERY: NO PROSTHETIC VALVE: NO PACEMAKER: NO MEASUREMENTS (cm) DIASTOLIC (NORMALS) SYSTOLIC (NORMALS) IVSd 1.1 (0.6-1.2) LA Diam 2.0 (1.9-4.0) LVEF 40-45% LVIDd 6.2 (3.5-5.7) LVIDs 5.2 (2.0-3.5) %FS 17% LVPWd 1.1 (0.6-1.2) Ao Diam 3.0 (2.0-3.7) 2 DIMENSIONAL ASSESSMENT: RIGHT ATRIUM: NORMAL LEFT ATRIUM: NORMAL RIGHT VENTRICLE: NORMAL LEFT VENTRICLE: NORMAL TRICUSPID VALVE: MITRAL VALVE: PULMONIC VALVE: NORMAL AORTIC VALVE: NORMAL PERICARDIAL EFFUSION: NONE AORTIC ROOT: NORMAL LEFT VENTRICULAR WALL MOTION: MILD GLOBAL HYPOKINESIS. DOPPLER/COLOR FLOW: SEE BELOW. COMMENTS: MILDLY DEPRESSED LEFT VENTRICULAR 40-45%. MILD GLOBAL HYPOKINESIS. MILD MITRAL AND TRICUSPID REGURGITATION. TECHNOLOGIST: Ana HITCHCOCK
[2020-08-25] MEDS: ONDANSETRON 4 MG/2 ML VIAL IV PRN (12:49)
[2020-08-25] MEDS ORDERED: ONDANSETRON 4 MG/2 ML VIAL ONE (13:08)
--- NOTE | 2020-08-25 14:27 | RAD REPORT ---
EXAM DESCRIPTION: CT - Angio Aorta For Dissection - 08/25/2020 6:34 am CLINICAL HISTORY: The patient is 59 years old and is Male; CHEST PAIN TECHNIQUE: Axial computed tomographic angiography images of the chest, abdomen and pelvis with intra venous contrast. Sagittal and coronal reformatted images were created and reviewed. This CT exam was performed using one or more of the following dose reduction techniques: automated exposure cont rol, adjustment of the mA and/or kV according to patient size, and/or use of iterative reconstruction technique. MIP reconstructed images were created and reviewed. COMPARISON: No relevant prior studies available. FINDINGS: VASCULATURE: Aorta: No acute findings. No aortic aneurysm. No dissection. Pulmonary arteries: Unremarkable as visualized. No pulmonary embolism is identified. Great vessels of aortic arch: No acute findings. No dissection. No arterial occlusion or sign ificant stenosis. Celiac trunk and mesenteric arteries: No acute findings. No occlusion or significant stenosis. Renal arteries: No acute findings. No occlusion or significant stenosis. Iliac arteries: No acute findings. No occlusion or significant stenosis. CHEST: Lungs: Unremarkable. No mass. No consolidation. Pleural space: Unremarkable. No significant effusion. No pneumothorax. Heart: Unremarkable. No cardiomegaly. No significant pericardial effusion. Mediastinum: There is a 5.0 x 3.6 x 4.5 cm mass in the superior/anterior mediastinum just anterio r to the aortic arch and below the first rib. ABDOMEN: Liver: There are multiple low-density lesions in the liver measuring up to 1.4 cm in the left lob e. Gallbladder and bile ducts: Gallbladder is not visualized. No ductal dilation. Pancreas: Unremarkable. No ductal dilation. No mass. Spleen: Unremarkable. No splenomegaly. Adrenals: Unremarkable. No mass. Kidneys and ureters: Unremarkable. No hydronephrosis. No solid mass. Stomach and bowel: There is a small 1.5 cm gastric diverticulum. No obstruction. No mucosal thickening. PELVIS: Appendix: The appendix is normal. Bladder: Unremarkable. No mass. Reproductive: The prostate appears absent. CHEST, ABDOMEN and PELVIS: Intraperitoneal space: Unremarkable. No significant fluid collection. No free air. Bones/joints: Fusion hardware at L5-S1 with osseous hypertrophy anteriorly. 8 mm of anterolisthesis of L5 on S1 with bilateral pars defects. No acute fracture. No dislocation. Soft tissues: There are clips in the left axilla. Lymph nodes: There is a 1.7 cm lymph node in the mediastinum adjacent to the left main pulmonary artery. There are scattered other small but irregular appearing lymph nodes in the mediastinum. IMPRESSION: 1. There is a 5.0 x 3.6 x 4.5 cm mass in the superior/anterior mediastinum just anteri or to the aortic arch and below the first rib. 2. There is a 1.7 cm lymph node in the mediastinum adjacent to the left main pulmonary artery. 3. There are scattered other small but irregular appearing lymph nodes in the mediastinum. 4. There are clips in the left axilla. 5. There are multiple low-density lesions in the liver measuring up to 1.4 cm in the left lobe. C annot exclude metastatic disease. Electronically signed by: Stiven Doyle MD 08/25/2020 1:11 AM CDT Due to temporary technical issues with the PACS/Fluency reporting system, reports are being signed by the in house radiologists without review as a courtesy to insure prompt reporting. The interpreting radiologist is fully responsible for the content of the report.
--- NOTE | 2020-08-25 16:10 | CON ---
Date of Consultation: 08/25/2020 Reason For Consultation: Chest pain. History Of Present Illness: A 59-year-old male, history of breast cancer and prostate cancer status post mastectomy and prostatectomy. He was placed on chemotherapy in the past, which caused nonischem ic dilated cardiomyopathy, presented now with chest pain. It is severe. That is getting worse and t he pain travels to his left shoulder, sharp in nature and follows up with Dr. Dewitt and scheduled f or a stress test next week. Denies having any chest pain now. No shortness of breath, but he has be en coughing and that is dry without sputum production. Past Medical History: Breast cancer, prostate cancer, systolic congestive heart failure, nonischemic . Medications: Refer to reconciliation sheet for detailed list. Allergies: NO KNOWN DRUG ALLERGIES. Family History: No premature coronary artery disease or cancer. Social History: Is a smoker. Does not drink or use any drugs. Review of Systems: All systems reviewed and they were negative except what mentioned in the HPI. Physical Examination: Vital Signs: Temperature is 97.6, pulse 58, breathing 18, blood pressure 152/92, satting 95%. General: pleasant middle-aged male, in no distress. Head and neck: Pupils are equal, reactive to light. Intact eye movements. No JVD. No cervical lym phadenopathy. Neck is supple. Thyroid is not enlarged. Lungs: Clear to auscultation bilaterally. No rhonchi, rales, or crackles. No accessory muscle use. Heart: Regular rate and rhythm. No extra sounds. Abdomen: Soft, nontender. Bowel sounds positive. No masses or hernia. No rigidity or rebound. Extremities: No edema, clubbing, cyanosis. Intact pulses. Skin: No rash noted. Neurologic: Alert, awake, oriented x3. No acute focal deficits appreciated. Investigation: Creatinine 0.89. Troponin 0.05. Hemoglobin is 14.4. Assessment And Recommendation: 1.Chest pain, borderline troponin, but known to have systolic congestive heart failure. Admit for o bservation to assess cardiac enzymes and obtain echo. Start him on aspirin and please trend 3 sets o f cardiac enzymes. 2.History of breast cancer. The CT scan is suspicious for metastasis. Recommend Oncology evaluatio n. 3.Systolic congestive heart failure. Obtain echo to update the status of the ejection fraction and plan accordingly. Thank you for the consult. SR/ILIR Voice ID: [id number] Report ID: [id number]
--- NOTE | 2020-08-25 19:37 | P.PN ---
Date of Service: 08/25/20 Patient seen and examined. He denies any chest pain. I discussed with him the CT scan results reporting mediastinal masses and possible liver metastasis. Patient was emotion. History of breast cancer and prostate cancer. Follow up with Dr. Cotton as an outpatient for biopsies and treatment discussed. Patient seen by cardiology. Troponin trended flat. ACS is not likely. Echocardiogram unchanged from previous. EF 40-45%. Cardiology recommend monitoring overnight. Continue anastrozole. Pain medication as needed.
[2020-08-25] MEDS ORDERED: ANASTROZOLE 1 MG TAB PO SCH (21:00)
[2020-08-25] MEDS ORDERED: ATORVASTATIN 20 MG TAB PO SCH (21:00)
[2020-08-26 05:54] LABS: Absolute Lymphocytes (CBC) 1.1 K/uL (0.7-4.9); Basophils % 0.2 % (0-1.3); Hematocrit 41.5 % (39.6-49.0); Lymphocytes % 15.6 % (15.3-44.8); RBC Red Blood Cell Count 4.87 M/uL (4.33-5.43)
[2020-08-26 06:07] LABS: BUN Blood Urea Nitrogen 19 mg/dL (7-18); Bicarbonate 29 mmol/L (21-32); Glucose Level 104 mg/dL (74-106); Magnesium 1.8 mg/dL (1.8-2.4); Phosphorus 3.7 mg/dL (2.5-4.9); Potassium 4.1 mmol/L (3.5-5.1); Sodium Level 141 mmol/L (136-145)
[2020-08-26] MEDS: ENOXAPARIN 40 MG/0.4 ML SQ SCH (08:28)
[2020-08-26] MEDS ORDERED: MAGNESIUM SULFATE 1 gm IVPB 1 GM/100 ML BAG IV ONE (09:00)
[2020-08-26 09:44] VITALS: O2SAT 94
[2020-08-26] MEDS: ONDANSETRON 4 MG/2 ML VIAL IV PRN (09:50)
--- NOTE | 2020-08-26 11:31 | P.DS ---
Admission Date: 08/25/20 Discharge Date: 08/26/20 Primary Care Provider: Dr. Chambers Disposition: ROUTINE DISCHARGE Discharge Condition: FAIR Reason for Admission: chest pain r/o Consultations: Cardiology-Dr. De Leon. - Problems (1) Chest pain Current Visit: Yes Status: Acute Qualifiers: Chest pain type: unspecified Qualified Code(s): R07.9 - Chest pain, unspecified (2) History of breast cancer Current Visit: Yes Status: Chronic (3) History of prostate cancer Current Visit: Yes Status: Chronic (4) Elevated troponin Current Visit: Yes Status: Acute (5) Asymptomatic LV dysfunction Current Visit: Yes Status: Acute Brief History of Present Illness: 59-year-old gentleman with a past medical history of breast cancer status bilateral mastectomy, history of prostate cancer presents to the emergency department with a complaint of chest pain, heart burn no feeling of indigestion. His initial troponin was mildly elevated in the ED. Patient was scheduled to have echocardiogram and stress test done with Dr. Dewitt. He was also supposed to have a CT scan done. CT dissection done reported mediastinal mass and multiple mediastinal lymph nodes, as well as nodules in the liver suspicious for metastatic disease. Patient hospitalized for further management. Hospital Course: Patient placed under observation on the medical floor. Troponin mildly elevated but trended flat. Echocardiogram was done which showed LV dysfunction, EF 40- 45%, no wall motion abnormality. Patient seen and evaluated by cardiology. Patient diagnosed with type 2 NSTEMI due to demand ischemia. He was asymptomatic during the hospital stay. Dr. Cotton was contacted regarding possible cancer recurrence. Patient is clinically stable. He is discharged to follow with Dr. Casarez as an outpatient for further evaluation and management. Vital Signs/Physical Exam: Temp Pulse Resp BP Pulse Ox 97.1 F 66 16 123/91 H 94 08/26/20 08:00 08/26/20 08:00 08/26/20 08:00 08/26/20 08:00 08/26/20 08:00 General: Alert, In no apparent distress, Oriented x3 HEENT: Mucous membr. moist/pink, Sclerae nonicteric Neck: JVD not distended Respiratory: Clear to auscultation bilaterally, Normal air movement Cardiovascular: No edema, Regular rate/rhythm, Normal S1 S2 Gastrointestinal: Soft and benign, Non-distended, No tenderness Musculoskeletal: No swelling Integumentary: No rashes Neurological: Normal strength at 5/5 x4 extr Laboratory Data at Discharge: WBC 7.30 K/uL (4.3-10.9) 08/26/20 05:22 Hgb 14.1 g/dL (13.6-17.9) 08/26/20 05:22 Hct 41.5 % (39.6-49.0) 08/26/20 05:22 Plt Count 199 K/uL (152-406) 08/26/20 05:22 PT 12.0 SECONDS (9.2-12.8) 08/24/20 23:01 INR 1.01 08/24/20 23:01 Sodium Cancelled 08/26/20 07:18 Potassium Cancelled 08/26/20 07:18 BUN Cancelled 08/26/20 07:18 Creatinine Cancelled 08/26/20 07:18 Glucose Cancelled 08/26/20 07:18 Phosphorus 3.7 mg/dL (2.5-4.9) 08/26/20 05:22 Magnesium 1.8 mg/dL (1.8-2.4) 08/26/20 05:22 Total Bilirubin Cancelled 08/26/20 07:18 AST Cancelled 08/26/20 07:18 ALT Cancelled 08/26/20 07:18 Alkaline Phosphatase Cancelled 08/26/20 07:18 Troponin I 0.06 ng/mL (0.0-0.045) H 08/25/20 11:33 Triglycerides 111 mg/dL (<150) 08/25/20 07:26 Cholesterol 189 mg/dL (<200) 08/25/20 07:26 HDL Cholesterol 44 mg/dL (40-60) 08/25/20 07:26 Cholesterol/HDL Ratio 4.30 08/25/20 07:26 Home Medications: Anastrozole [Arimidex*] 1 mg PO BEDTIME 09/16/17 Diet: AHA Activity: Ad greg Followup: ALAINA FOLEY [Primary Care Provider] - Gabrielle Epps MD [ACTIVE - CAN ADMIT] - 1 Week
[2020-08-26 12:02] VITALS: BP 137/72; TEMP 97.8
== END 2020-08-26 12:20 | disposition home or self-care (01) ==
LOC: ER 22:03 → ERHOLD 08-25 02:57 → 2ND 08-25 17:56
PROVIDERS: ADMIT Internal Medicine; ATTEND Internal Medicine
DX: I21.A1 Myocardial infarction type 2 (principal); I50.22 Chronic systolic (congestive) heart failure; R22.2 Localized swelling, mass and lump, trunk; K76.9 Liver disease, unspecified; R05 Cough; Z20.822 Contact with and (suspected) exposure to COVID-19; F17.220 Nicotine dependence, chewing tobacco, uncomplicated; Z85.3 Personal history of malignant neoplasm of breast; Z85.46 Personal history of malignant neoplasm of prostate; Z90.13 Acquired absence of bilateral breasts and nipples; Z90.79 Acquired absence of other genital organ(s); Z80.3 Family history of malignant neoplasm of breast; Z80.0 Family history of malignant neoplasm of digestive organs
CPT/HCPCS: 93005 ×2; 93306; 85025 ×2; 80048 ×2; 36415 ×2; 83735 ×3; 84100 ×2; 85610; 80061; 85379; 80076; 84443; 81003; 84484 ×3; 84439; 80053; 83880; 71275; 74175; 94760 ×2; 96375; 96372; 96374; 99285; U0003; Q9967; J1650 ×2; J2270; J3475; J7030; J2405 ×2; G0378 ×3

== ENCOUNTER → 2020-09-11 | Day surgery (SDC) | payer OTHER ==
[~2020-09-11] MED LIST: FENTANYL CITR 100 MCG/2 ML ONE; MIDAZOLAM HCL 2 MG/2 ML INJ ONE; NA CHLORIDE 0.9% 1,000 ML ONE; NALOXONE 0.4 MG/ML VIAL ONE; SODIUM HYPOCHLORITE 0.25% 473 ML ONE
[2020-09-11 12:10] VITALS: BMI 36.9
[2020-09-11 13:01] VITALS: BP 114/83; TEMP 98; O2SAT 93
--- NOTE | 2020-09-11 13:29 | RAD REPORT ---
EXAM DESCRIPTION: US - Percutaneous Biopsy Lung - 09/11/2020 11:28 am CLINICAL HISTORY: CHEST WALL MASS COMPARISON: Angio Aorta For Dissection dated 08/25/2020 TECHNIQUE: Patient presents for image guided biopsy of an anterior upper chest mass. Prior imaging s howed mediastinal and in chest wall mass lesion with bone destructive changes. Preliminary sonographic imaging was performed and was able to visualize the mass has distinguishable from adjacent bone, muscle and fatty tissue. Ultrasound-guided biopsy was selected as the imaging mod ality. IV access and physiologic monitors were in place. The procedure, risks and alternatives were discusse d with the patient in detail. After answering all questions both oral and written consent were obtain ed. Patient had no contraindicated allergy or medication history. Time-out procedure performed. The patient was pre-medicated with Versed at 1.0 milligrams IV and fentanyl 50 micrograms IV. The upp er chest was prepped and draped in the usual sterile fashion. From a right lateral approach the skin and deeper tissues were anesthetized with 1% lidocaine. Under ultrasound guidance a 17 gauge introduc er needle was advanced. The tip of the needle was placed along the right lateral margin of the midlin e chest wall mass. Under sonographic guidance an 18 gauge biopsy needle was advanced through the intr oducer. Biopsy needle was seen to traverse the mass and a 2 centimeter core biopsy was obtained. Usin g the same introducer needle 2 additional core biopsies were obtained of the mass using sonographic g uidance. All obtained biopsy material was given to pathology for assessment. The introducer needle was withdrawn. Direct pressure was applied to the mass and skin access site. He mostasis was obtained in sterile bandage placed to the puncture site. Postprocedure care and precauti on instructions were given to the patient. IMPRESSION: Ultrasound-guided core biopsy was performed of the midline upper chest wall mass. All ob tained material was given to pathology for histologic assessment. Patient tolerated procedure well with no immediate complications.
== END ==
LOC: DS 09:23
PROVIDERS: ATTEND Internal Medicine Hematology & Oncology
PROC: 0JB60ZX Excision of Chest Subcutaneous Tissue and Fascia, Open Approach, Diagnostic (ICD-10-PCS; principal; 2020-09-11)
PROC: BH4BZZZ Ultrasonography of Chest Wall (ICD-10-PCS; 2020-09-11)
DX: C79.89 Secondary malignant neoplasm of other specified sites (principal); C50.122 Malignant neoplasm of central portion of left male breast; C78.7 Secondary malignant neoplasm of liver and intrahepatic bile duct
CPT/HCPCS: 36415; 88305; 85730; 21550; 76942; J2250; J3010; J7030; J2310

== ENCOUNTER 2022-10-16 09:37 | Inpatient (IN) | payer OTHER ==
[2022-10-16 10:47] LABS: Absolute Lymphocytes (CBC) 1.1 K/uL (0.7-4.9); Hematocrit 41.6 % (39.6-49.0); MCV 91.4 fL (80-100); MPV 6.8 fL (7.6-11.3); RBC Red Blood Cell Count 4.55 M/uL (4.33-5.43)
[2022-10-16 10:48] LABS: Protime INR 1.13
[2022-10-16 11:09] LABS: Albumin 3.3 g/dL (3.4-5.0); Bilirubin Direct 0.1 mg/dL (0-0.2); Bilirubin Indirect, Calculated 0.4 mg/dL (0.2-0.8); Bilirubin Total 0.5 mg/dL (0.2-1.0); Magnesium 1.7 mg/dL (1.6-2.4); Potassium 4.1 mEq/L (3.5-5.1); Protein, Total 6.9 g/dL (6.4-8.2)
[2022-10-16 11:12] LABS: Troponin High Sensitivity 76.7 pg/mL (<58.9)
--- NOTE | 2022-10-16 12:08 | RAD REPORT ---
EXAM DESCRIPTION: CT - Chest For Pe Angio - 10/16/2022 11:49 am CLINICAL HISTORY: Shortness of breath COMPARISON: September 25, 2022 TECHNIQUE: Dynamically enhanced axial 3 mm thick images of the chest were obtained during administra tion of 100 mL Isovue 370 IV contrast. Coronal and oblique reconstruction images were generated and r eviewed. Exam utilizes a protocol for optimal evaluation of pulmonary arterial tree. Maximum intensity projections 3D imaging was utilized All CT scans are performed using dose optimization technique as appropriate and may include automated exposure control or mA/KV adjustment according to patient size. FINDINGS: A pulmonary embolus is not seen. A thoracic aortic aneurysm is not noted. Small pleural effusions. A pericardial effusion is not seen. Bilateral lung nodules with mild reticulonodular opacities and mild left upper lobe patchy opacity un changed. Mediastinal and hilar lymphadenopathy unchanged Stable sclerotic lesions IMPRESSION: Negative for a pulmonary embolism. Stable mediastinal and hilar lymphadenopathy Bilateral lung nodules with mild reticulonodular opacities and mild left upper lobe patchy opacity un changed. All of this may be infectious. Given the nodules and mediastinal and hilar lymphadenopathy n eoplasm is another consideration
--- NOTE | 2022-10-16 12:16 | RAD REPORT ---
EXAM DESCRIPTION: Hannah Single View10/16/2022 10:08 am CLINICAL HISTORY: Bradycardia/cough COMPARISON: September FINDINGS: Small bilateral pulmonary nodules. Mild bilateral reticulonodular opacities. Mild patchy left upper lobe opacity. All of this is without significant change Mild mediastinal and hilar lymphadenopathy is unchanged. Heart is normal size IMPRESSION: Bilateral pulmonary opacities may all be infectious. Another consideration is that this is in part the metastases. Mild mediastinal and hilar lymphadenopathy
--- NOTE | 2022-10-16 12:23 | ER ---
Nurse's Notes [facility] Name: Kev Huitron Age: 61 yrs Sex: Male : 1960 Arrival Date: 10/16/2022 Time: 09:37 Bed 4 Private MD: Diagnosis: NSTEMI, dyspnea, pneumonia, lung cancer Presentation: 10/16 09:54 Chief complaint: Patient states: Dizzy when he went to get blood work today, HR 33. ll1 Sent in for evaluation. Cough for 4 months. Currently on chemo for breast CA. Coronavirus screen: Vaccine status: Patient reports receiving the 2nd dose of the covid vaccine. Client denies travel out of the [place] in the last 14 days. cough unrelated to allergies, fatigue, Client presents with at least one sign or symptom that may indicate coronavirus-19. Standard/surgical mask placed on the client. Ebola Screen: Patient denies travel to an Ebola-affected area in the 21 days before illness onset. Initial Sepsis Screen: Does the patient meet any 2 criteria? No. Patient's initial sepsis screen is negative. Does the patient have a suspected source of infection? No. Patient's initial sepsis screen is negative. Risk Assessment: Do you want to hurt yourself or someone else? Patient reports no desire to harm self or others. Onset of symptoms was October 16, 2022. 09:54 Method Of Arrival: Wheelchair ll1 09:54 Acuity: ANNEMARIE 2 ll1 Triage Assessment: 09:56 General: Appears uncomfortable, Behavior is calm, cooperative, appropriate for age. ll1 Pain: Denies pain. Neuro: Reports dizziness, weakness. Cardiovascular: Reports low HR. Respiratory: Reports cough that is. Historical: - Allergies: 09:53 No Known Allergies; ll1 - PMHx: 09:53 Cancer, Breast; Prostate Cancer; ll1 - PSHx: 09:53 back, knee; ll1 - Immunization history:: Client reports receiving the 2nd dose of the Covid vaccine. - Social history:: Smoking status: Patient reports use of chewing tobacco. Patient denies any tobacco usage or history of. Screenin:43 [facility] ED Fall Risk Assessment (Adult) History of falling in the last 3 months, db including since admission No falls in past 3 months (0 pts) Confusion or Disorientation No (0 pts) Intoxicated or Sedated No (0 pts) Impaired Gait No (0 pts) Mobility Assist Device Used No (0 pt) Altered Elimination No (0 pt) Score/Fall Risk Level 0 - 2 = Low Risk Oriented to surroundings, Maintained a safe environment. Abuse screen: Denies threats or abuse. Denies injuries from another. Nutritional screening: No deficits noted. Tuberculosis screening: No symptoms or risk factors identified. Assessment: 10:05 Reassessment: Patient appears in no apparent distress at this time. Patient and/or db family updated on plan of care and expected duration. Pain level reassessed. Patient is alert, oriented x 3, equal unlabored respirations, skin warm/dry/pink. patient states is here for low pulse. was at [facility] for check up and labs. General: Appears in no apparent distress. comfortable, Behavior is calm, cooperative. Pain: Denies pain. Neuro: Level of Consciousness is awake, alert, obeys commands, Oriented to person, place, time, situation. Cardiovascular: Capillary refill < 3 seconds Patient's skin is warm and dry. 11:10 Reassessment: No changes from previously documented assessment. To PACU for US IV line. ll1 Accompanied by EVY Cunningham. 11:21 Reassessment: multiple attempts for IV access by 5 staff members. Physician notified. db Patient to receive IV ultrasound IV by hospital staff member. 12:20 Reassessment: Patient appears in no apparent distress at this time. Patient and/or db family updated on plan of care and expected duration. Pain level reassessed. Patient is alert, oriented x 3, equal unlabored respirations, skin warm/dry/pink. General: Appears in no apparent distress. comfortable, Behavior is calm, cooperative. 13:30 Reassessment: Patient appears in no apparent distress at this time. Patient and/or db family updated on plan of care and expected duration. Pain level reassessed. Patient is alert, oriented x 3, equal unlabored respirations, skin warm/dry/pink. General: Appears in no apparent distress. comfortable, Behavior is calm, cooperative. 14:20 Reassessment: Called unit to give report . States nurse is taking someone to Dialysis db and will call back. 15:38 Reassessment: REPORT CALLED TO JOSE C PACHECO. db Vital Signs: 09:45 BP 157 / 87; Pulse 37; Resp 20; Pulse Ox 95% on R/A; db 09:54 BP 157 / 87; Pulse 37; Resp 18; Temp 98.5(O); Pulse Ox 96% on R/A; Weight 125.65 kg; ll1 Height 6 ft. 1 in. ; Pain 0/10; 10:56 Pulse 89; Resp 18; Pulse Ox 94% on R/A; db 11:50 BP 132 / 93; Pulse 41; Resp 18; Pulse Ox 96% on R/A; db 12:30 BP 146 / 108; Pulse 54; Resp 16; Pulse Ox 94% on R/A; db 13:30 BP 163 / 71; Pulse 79; Resp 16; Pulse Ox 95% on R/A; db 09:54 Body Mass Index 36.55 (125.65 kg, 185.42 cm) ll1 09:54 Pain Scale: Adult ll1 09:54 HR 33-40 on pulse ox throughout triage ll1 ED Course: 09:41 Patient arrived in ED. mg5 09:48 Elenita Calderon MD is Attending Physician. sp3 09:50 Sharon Robert, JOSE C is Primary Nurse. ko1 09:53 Arm band placed on Patient placed in an exam room, on a stretcher. ll1 09:56 Triage completed. ll1 10:10 XRAY Chest (1 view) In Process Unspecified. EDMS 10:15 Missed attempt(s): 22 gauge in right antecubital area. Bleeding controlled, band aid db applied, catheter tip intact. 10:34 Missed attempt(s): 22 gauge in right forearm. Bleeding controlled, band aid applied, ll1 catheter tip intact. 10:40 Initial lab(s) drawn, by ED staff, sent to lab. db 10:56 Missed attempt(s): 22 gauge in right wrist. Bleeding controlled, band aid applied, db catheter tip intact. 11:12 Notified ED physician of a critical lab result(s). troponin 76.7. ll1 11:50 CT Chest For PE Angio In Process Unspecified. EDMS 12:19 Inserted saline lock: in right upper arm, using aseptic technique. ,using aseptic db technique. 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 12:23 Demarco Sabillon MD is Hospitalizing Provider. sp3 12:30 First set of blood cultures drawn by me. db 12:45 Second set of blood cultures drawn by me. db 15:40 Patient has correct armband on for positive identification. Bed in low position. Call db light in reach. Side rails up X 1. Provided Education on: ADMISSION. 15:40 No provider procedures requiring assistance completed. Patient admitted, IV remains in db place. Administered Medications: 12:59 Drug: Cefepime IVPB 2 grams Route: IVPB; Rate: 200 ml/hr; Infused Over: 30 mins; Site: db right upper arm; Medication: 15:41 VIS not applicable for this client. db Outcome: 12:23 Decision to Hospitalize by Provider. sp3 15:40 Admitted to ER Hold. [facility]. db 15:40 Condition: stable 15:40 Instructed on the need for admit. 16:27 Patient left the ED. ko1 Signatures: Dispatcher [employer] EDSherwin Anderson RN RN ll1 Elenita Calderon MD MD sp3 Sharon Robert RN RN ko1 Chiquita Fonseca RN RN db Floresita Scherer mg5 Corrections: (The following items were deleted from the chart) 11:12 11:12 Notified ED physician of a critical lab result(s). troponin 78.6 ll1 ll1
--- NOTE | 2022-10-16 12:23 | EDPHYS ---
Physician Documentation [facility] Name: Kev Huitron Age: 61 yrs Sex: Male : 1960 Arrival Date: 10/16/2022 Time: 09:37 Bed 4 Private MD: ED Physician Elenita Calderon HPI: 10/16 10:08 This 61 yrs old Male presents to ER via Wheelchair with complaints of Chest pain, sp3 shortness of breath, low pulse. 10:09 61-year-old male with a history of active breast cancer, resolved prostate cancer, now sp3 currently on chemotherapy being treated by Dr. Casarez and also sees Dr. Dewitt now presents with chief complaint shortness of breath x2 days, chest pain, and perceived low pulse. Patient has no prior history of DVT or PE. Symptoms of been slow and insidious in nature. He denies any fever, night sweats, cough, congestion, URI symptoms, known sick contacts, travel history, headache, neck pain, abdominal pain, nausea, vomiting, diarrhea, syncope, near syncope, focal neurodeficit, or any other signs or symptoms at this time on ROS.. Historical: - Allergies: 09:53 No Known Allergies; ll1 - PMHx: 09:53 Cancer, Breast; Prostate Cancer; ll1 - PSHx: 09:53 back, knee; ll1 - Immunization history:: Client reports receiving the 2nd dose of the Covid vaccine. - Social history:: Smoking status: Patient reports use of chewing tobacco. Patient denies any tobacco usage or history of. ROS: 10:11 Constitutional: Negative for fever, chills, and weight loss, Eyes: Negative for injury, sp3 pain, redness, and discharge, ENT: Negative for injury, pain, and discharge, Neck: Negative for injury, pain, and swelling, Abdomen/GI: Negative for abdominal pain, nausea, vomiting, diarrhea, and constipation, Back: Negative for injury and pain, MS/Extremity: Negative for injury and deformity, Skin: Negative for injury, rash, and discoloration, Neuro: Negative for headache, weakness, numbness, tingling, and seizure, Psych: Negative for depression, anxiety, suicide ideation, homicidal ideation, and hallucinations, Allergy/Immunology: Negative for hives, rash, and allergies, Endocrine: Negative for neck swelling, polydipsia, polyuria, polyphagia, and marked weight changes. 10:11 All other systems are negative. Exam: 10:11 Constitutional: This is a well developed, well nourished patient who is awake, alert, sp3 and in no acute distress. Head/Face: Normocephalic, atraumatic. Eyes: Pupils equal round and reactive to light, extra-ocular motions intact. Lids and lashes normal. Conjunctiva and sclera are non-icteric and not injected. Cornea within normal limits. Periorbital areas with no swelling, redness, or edema. ENT: Nares patent. No nasal discharge, no septal abnormalities noted. External auditory canals are clear. Oropharynx with no redness, swelling, or masses, exudates, or evidence of obstruction, uvula midline. Mucous membranes moist. Neck: Trachea midline, no thyromegaly or masses palpated, and no cervical lymphadenopathy. Supple, full range of motion without nuchal rigidity, or vertebral point tenderness. No Meningismus. Chest/axilla: Normal chest wall appearance and motion. Nontender with no deformity. No lesions are appreciated. Respiratory: Lungs have equal breath sounds bilaterally, clear to auscultation and percussion. No rales, rhonchi or wheezes noted. No increased work of breathing, no retractions or nasal flaring. Abdomen/GI: Soft, non-tender, with normal bowel sounds. No distension or tympany. No guarding or rebound. No evidence of tenderness throughout. Back: No spinal tenderness. No costovertebral tenderness. Full range of motion. Skin: Warm, dry with normal turgor. Normal color with no rashes, no lesions, and no evidence of cellulitis. MS/ Extremity: Pulses equal, no cyanosis. Neurovascular intact. Full, normal range of motion. Neuro: Awake and alert, GCS 15, oriented to person, place, time, and situation. Cranial nerves II-XII grossly intact. Motor strength 5/5 in all extremities. Sensory grossly intact. Cerebellar exam normal. Normal gait. Psych: Awake, alert, with orientation to person, place and time. Behavior, mood, and affect are within normal limits. 10:11 Cardiovascular: Patient has irregularly irregular heartbeat. See EKG for further details.. 10:11 ECG was reviewed by the Attending Physician. EKG demonstrates normal sinus rhythm with PVC after every normal beat with normal intervals, leftward axis, nonspecific diffuse ST/T changes without evidence of acute ischemia. This is different from prior EKG dated August 25, 2020 which point only occasional PVC was noted. Vital Signs: 09:45 BP 157 / 87; Pulse 37; Resp 20; Pulse Ox 95% on R/A; db 09:54 BP 157 / 87; Pulse 37; Resp 18; Temp 98.5(O); Pulse Ox 96% on R/A; Weight 125.65 kg; ll1 Height 6 ft. 1 in. ; Pain 0/10; 10:56 Pulse 89; Resp 18; Pulse Ox 94% on R/A; db 11:50 BP 132 / 93; Pulse 41; Resp 18; Pulse Ox 96% on R/A; db 12:30 BP 146 / 108; Pulse 54; Resp 16; Pulse Ox 94% on R/A; db 13:30 BP 163 / 71; Pulse 79; Resp 16; Pulse Ox 95% on R/A; db 09:54 Body Mass Index 36.55 (125.65 kg, 185.42 cm) ll1 09:54 Pain Scale: Adult ll1 09:54 HR 33-40 on pulse ox throughout triage ll1 MDM: 09:49 Patient medically screened. sp3 10:12 Data reviewed: vital signs, nurses notes, old medical records, lab test result(s), EKG, sp3 radiologic studies. ED course: 61-year-old male with active breast cancer now with shortness of breath, chest pain and palpitations. Differential diagnosis is broad and includes pulmonary embolism, acute coronary syndrome, electrolyte abnormality, pneumonia, among others. Patient does have pulmonary metastases from his breast cancer. Will evaluate with chest CT, laboratory values, EKG which is already been done, with likely admission to the hospital for further diagnostics and work-up.. 12:20 ED course: CT demonstrates no pulmonary embolism but possible opacities consistent with sp3 pneumonia. This may also be an offshoot of his existing neoplasm. Clinically he has no WBC count, no fever and no other clinical symptoms of pneumonia including cough. However given his complex history, we will administer 1 dose of antibiotics in the ED and defer to inpatient side for continuance. Blood cultures have also been ordered. Troponin is elevated and will need serial markers and EKGs to assess for any myocardial damage. There is no acute findings or STEMI criteria. Patient is currently improved and is symptoms and in no acute distress. Cardiology will be consulted on the case as well.. 10/16 09:49 Order name: Basic Metabolic Panel; Complete Time: 11:20 3 10/16 09:49 Order name: CBC with Diff; Complete Time: 11:20 [facility] 10/16 09:49 Order name: LFT's; Complete Time: 11:20 [facility] 10/16 09:49 Order name: Magnesium; Complete Time: 11:20 [facility] 10/16 09:49 Order name: NT PRO-BNP; Complete Time: 11:20 [facility] 10/16 09:49 Order name: PT-INR; Complete Time: 11:20 [facility] 10/16 09:49 Order name: Troponin HS; Complete Time: 11:20 [facility] 10/16 12:20 Order name: Blood Culture Adult (2) [facility] 10/16 13:16 Order name: Troponin High Sensitivity [facility] 10/16 13:16 Order name: Troponin High Sensitivity [facility] 10/16 13:16 Order name: Troponin High Sensitivity [facility] 10/16 13:25 Order name: Magnesium [facility] 10/16 13:25 Order name: Phosphorus [facility] 10/16 13:25 Order name: T4 Free [facility] 10/16 13:25 Order name: Thyroid Stimulating Hormone [facility] 10/16 13:25 Order name: Urinalysis w/ reflexes [facility] 10/16 13:25 Order name: Basic Metabolic Panel [facility] 10/16 13:25 Order name: Basic Metabolic Panel [facility] 10/16 13:25 Order name: CBC with Automated Diff [facility] 10/16 13:25 Order name: CBC with Automated Diff [facility] 10/16 13:25 Order name: Lipid Profile [facility] 10/16 13:25 Order name: Lipid Profile [facility] 10/16 13:25 Order name: NT PRO-BNP [facility] 10/16 13:25 Order name: NT PRO-BNP [facility] 10/16 13:28 Order name: Hemoglobin A1c [facility] 10/16 09:49 Order name: XRAY Chest (1 view); Complete Time: 12:19 3 10/16 10:08 Order name: CT Chest For PE Angio; Complete Time: 12:19 [facility] 10/16 13:21 Order name: Echo with Doppler [facility] 10/16 09:49 Order name: EKG; Complete Time: 09:50 sp3 10/16 13:25 Order name: CONS Physician Consult [facility] 10/16 13:25 Order name: Heart Healthy [facility] 10/16 09:49 Order name: Cardiac monitoring; Complete Time: 09:50 sp3 10/16 09:49 Order name: EKG - Nurse/Tech; Complete Time: 10:14 sp3 10/16 09:49 Order name: IV Saline Lock; Complete Time: 12:19 sp3 10/16 09:49 Order name: Labs collected and sent; Complete Time: 10:39 sp3 10/16 09:49 Order name: O2 Per Protocol; Complete Time: 09:50 sp3 10/16 09:49 Order name: O2 Sat Monitoring; Complete Time: 09:51 sp3 Administered Medications: 12:59 Drug: Cefepime IVPB 2 grams Route: IVPB; Rate: 200 ml/hr; Infused Over: 30 mins; Site: right upper arm; Disposition Summary: 10/16/22 12:23 Hospitalization Ordered Hospitalization Status: Inpatient Admission sp3 Provider: Demarco Sabillon sp3 Location: Telemetry/[facility]Sur (Inpatient) sp3 Condition: Stable sp3 Problem: an acute exacerbation sp3 Symptoms: have worsened sp3 Bed/Room Type: Standard sp3 Room Assignment: [facility](10/16/22 14:55) bd Diagnosis - NSTEMI, dyspnea, pneumonia, lung cancer sp3 Forms: - Medication Reconciliation Form sp3 - SBAR form sp3 Signatures: Dispatcher [employer] EDMS Alina Jerome bd Sherwin Martinez RN RN ll1 Elenita Calderon MD MD sp3 Chiquita Fonseca RN RN db Corrections: (The following items were deleted from the chart) 14:55 12:23 sp3 bd
[2022-10-16] MEDS ORDERED: CEFEPIME 2 GM VIAL ONE (13:00)
[2022-10-16] MEDS ORDERED: NA CHLORIDE 0.9% 100 ML ONE (13:00)
[2022-10-16] MEDS ORDERED: HYDROCODONE/APAP 5/325 MG TAB PO PRN (13:13)
[2022-10-16] MEDS ORDERED: ONDANSETRON 4 MG/2 ML VIAL IV PRN (13:22)
--- NOTE | 2022-10-16 13:26 | P.HP ---
Certification for Inpatient Patient admitted to: Observation With expected LOS: <2 Midnights Patient will require the following post-hospital care: None Practitioner: I am a practitioner with admitting privileges, knowledge of patient current condition, hospital course, and medical plan of care. Services: Services provided to patient in accordance with Admission requirements found in Title 42 Section 412.3 of the Code of Federal Regulations Patient History Date of Service: 10/16/22 Reason for admission: Shortness of breath and bradycardia. History of Present Illness: Patient is a 61-year-old male with a past medical history significant for prostate cancer, breast cancer, lung cancer who presents with complaint of shortness of breath and bradycardia. Patient reported that this morning he started experiencing shortness of breath when he woke up. Patient reported associated signs and symptoms cough, chest tightness, dizziness and chest congestion. Patient denies any other signs or symptoms. Symptoms was aggravated or relieved by nothing. Patient reported that he followed up with his oncologist today to change his chemotherapy medication. While at the oncologist office patient's heart rate was noted to be in the 30's. Patient denies any other signs and symptoms. Symptoms are aggravated or relieved by nothing. Patient decided to present to the hospital for medical evaluation. Allergies No Known Allergies Allergy (Verified 09/16/17 13:28) Home Medications: Anastrozole [Arimidex*] 1 mg PO BEDTIME 09/16/17 Ondansetron [Zofran] 4 mg PO Q6H PRN #30 tab 08/26/20 Codeine/APAP [Tylenol W/Codeine #3 tab] 1 tab PO Q4HP PRN 09/11/20 Omeprazole 20 mg PO DAILY 09/11/20 - Past Medical/Surgical History -: prostate cancer -: breast cancer -: GERD -: masectomy -: prostatectomy -: knees surgery -: back surgery - Family History Sister -: Cancer (breast, stomach) - Social History Smoking Status: Never smoker Alcohol use: No CD- Drugs: No Caffeine use: No Place of Residence: Home Review of Systems Respiratory: Cough, Shortness of Breath, Other (Chest tightness, chest congestion) Cardiovascular: Unremarkable Gastrointestinal: Unremarkable Genitourinary: Unremarkable Musculoskeletal: Unremarkable Integumentary: Unremarkable Neurological: Other (Dizziness) Lymphatics: Unremarkable Physical Examination - Physical Exam General: Alert, In no apparent distress, Oriented x3, Cooperative HEENT: Atraumatic, PERRLA, Mucous membr. moist/pink, EOMI, Sclerae nonicteric Neck: Supple, 2+ carotid pulse no bruit, No LAD, Without JVD or thyroid abnormality Respiratory: Diminished Cardiovascular: Normal S1 S2, Irregular heart rate/rhythm Capillary refill: <2 Seconds Gastrointestinal: Normal bowel sounds, Soft and benign, Non-distended, No tenderness Musculoskeletal: No clubbing, No contractures, No tenderness Integumentary: No rashes, No breakdown, No significant lesion Neurological: Normal speech, Normal strength at 5/5 x4 extr, Normal tone, Normal affect Lymphatics: No axilla or inguinal lymphadenopathy - Studies Laboratory Data (last 24 hrs) 10/16/22 10:35: PT 12.4, INR 1.13 10/16/22 10:35: WBC 7.40, Hgb 13.8, Hct 41.6, Plt Count 247 10/16/22 10:35: Sodium 138, Potassium 4.1, BUN 21 H, Creatinine 1.04, Glucose 100, Magnesium 1.7, Total Bilirubin 0.5, AST 49 H, ALT 61, Alkaline Phosphatase 61 Assessment and Plan - Plan --Pneumonia. CT imaging indicates Bilateral lung nodules with mild reticulon odular opacities and mild left upper lobe patchy opacity unchanged. All of this may be infectious. Continue antibiotics. --History of breast\lung\prostate cancer. Patient follows up with an outpatient oncologist. Continue supportive care --Hypertension. Patient placed on amlodipine and hydralazine as needed.- --GERD. Continue home medication. -- Elevated troponin. To rule out ACS. Cardiology consulted. Echocardiogram pending to assess cardiac structures and function. Will trend troponin levels. We will await further recommendation per airline managerial supervisor. --Chronic systolic CHF. Stable. Echocardiogram of 08/25/20 indicates an EF of 40-45% . Continue home medications. Daily weight and strict I/O. --CKD 2. Stable. We will continue to monitor renal functions. --Bradycardia. Pulse rate trending up. Echocardiogram pending for further evaluation. Further management by airline managerial supervisor. -- DVT prophylaxis with Lovenox subQ. - Advance Directives Does patient have a Living Will: No Does patient have a Durable POA for Healthcare: No
[2022-10-16] MEDS ORDERED: ACETAMINOPHEN 325 MG TABLET PO PRN (13:30)
[2022-10-16] MEDS: AZITHROMYCIN IV 500 MG in NA CHLORIDE 0.9% 250 ML IVPB SCH (14:00)
[2022-10-16 16:35] VITALS: BMI 36.5
[2022-10-16] MEDS ORDERED: HYDRALAZINE HCL 20 MG/ML VIAL IV PRN (18:29)
[2022-10-16] MEDS: AMLODIPINE 5 MG TAB PO SCH (21:50)
[2022-10-16 23:11] LABS: Magnesium 1.7 mg/dL (1.6-2.4); Phosphorus 2.9 mg/dL (2.5-4.9); Thyroid Stimulating Hormone 2.13 uIU/mL (0.358-3.740)
[2022-10-17 06:30] LABS: Absolute Lymphocytes (CBC) 0.7 K/uL (0.7-4.9); Lymphocytes % 11.1 % (15.3-44.8); MCV 92.1 fL (80-100); MPV 7.3 fL (7.6-11.3); RBC Red Blood Cell Count 4.13 M/uL (4.33-5.43)
[2022-10-17 06:52] LABS: Magnesium 1.6 mg/dL (1.6-2.4)
[2022-10-17] MEDS: AZITHROMYCIN IV 500 MG in NA CHLORIDE 0.9% 250 ML IVPB SCH (08:12)
[2022-10-17] MEDS: AMLODIPINE 5 MG TAB PO SCH (08:13)
[2022-10-17] MEDS ORDERED: POTASSIUM CL SA 10 MEQ TAB PO ONE (09:00)
[2022-10-17] MEDS ORDERED: ASPIRIN 81 MG CHEWABLE TABLET PO SCH (09:00)
[2022-10-17] MEDS ORDERED: ENOXAPARIN 40 MG/0.4 ML SQ SCH (09:00)
[2022-10-17] MEDS ORDERED: MAGNESIUM SULFATE 1 gm IVPB 1 GM/100 ML BAG IV ONE (09:00)
[2022-10-17] MEDS ORDERED: CEFTRIAXONE 1,000 MG in NA CHLORIDE 0.9% 50 ML IVPB SCH (09:00)
[2022-10-17] MEDS ORDERED: HEPA 1000U/500MLS 0 UNIT/0 ML BAG IV ONE (12:10)
[2022-10-17] MEDS ORDERED: LIDOCAINE 1% 20 ML MDV ONE ×2 (12:10→12:23)
[2022-10-17] MEDS ORDERED: MIDAZOLAM HCL 2 MG/2 ML INJ ONE (12:21)
[2022-10-17] MEDS ORDERED: FENTANYL CITR 100 MCG/2 ML ONE (12:21)
[2022-10-17] MEDS ORDERED: HEPA 1000U/500MLS 2,000 UNIT/1,000 ML BAG IV ONE (12:21)
[2022-10-17] MEDS ORDERED: ASPIRIN 325 MG TAB ONE (12:22)
[2022-10-17] MEDS ORDERED: VERAPAMIL HCL 10 MG/4 ML VIAL IV ONE (12:22)
[2022-10-17] MEDS ORDERED: HEPARIN 10,000 UNIT/10 ML VIAL IV ONE (12:22)
[2022-10-17] MEDS ORDERED: CLOPIDOGREL 75 MG TABLET ONE (12:22)
[2022-10-17] MEDS ORDERED: HEPARIN 5000 UNIT/ML 1 ML VIAL ONE (12:22)
[2022-10-17] MEDS ORDERED: NITROGLYCERIN/D5W 25 MG/250 ML BTL IV ONE (12:23)
[2022-10-17] MEDS ORDERED: TICAGRELOR 90 MG TABLET PO ONE (12:23)
[2022-10-17] MEDS ORDERED: NITROGLYCERIN 100 MCG/ML SYR (for cath lab use only) IV ONE (12:23)
[2022-10-17] MEDS ORDERED: ATROPINE SULF 1 MG/10 ML SYR IV ONE (12:23)
[2022-10-17 12:24] VITALS: TEMP 98.1
[2022-10-17] MEDS ORDERED: NA CHLORIDE 0.9% 500 ML ONE (12:49)
--- NOTE | 2022-10-17 13:23 | EKG ---
Test Date: 2022-10-16 Test Time: 10:01:33 Title Searcher: JUAN MEASUREMENT RESULTS: Intervals: Rate: 82 CT: 156 QRSD: 92 QT: 364 QTc: 425 [place]: P: 27 CT: 156 QRS: -11 T: 68 INTERPRETIVE STATEMENTS: Sinus rhythm with frequent premature ventricular complexes in a pattern of bigeminy Nonspecific T wave abnormality Abnormal ECG Compared to ECG 08/25/2020 09:50:16 No significant changes Electronically Signed On 10-17-22 13:20:11 CDT by Juan Diego De Leon
--- NOTE | 2022-10-17 14:21 | OP ---
Date of Procedure: 10/17/2022 Surgeon: KIERSTEN FERNANDEZ Procedures Performed: 1.Selective coronary angiogram. 2.Left heart catheterization. Indication: Elevated troponin with chest pain. Access: Right radial artery 6-Qatari closed with TR band. Complications: None. Bleeding: Less than 20 mL. Anesthesia: Total sedation time was about 20 minutes. Description Of Procedure: After risks, benefits, alternatives were explained, the patient agreed to proceed and signed informed consent. The patient was brought into the cardiac catheterization labora tory, prepped and draped in the usual sterile fashion. Then, I accessed right radial artery using pe diatric micropuncture kit, a 6-Qatari Slender sheath, took 5-Qatari Cobb 4.0 catheter into the aorti c root, engaged the left main and then the right coronary artery. Standard views were taken and then the catheter was pushed over the wire into the LV, measured the LVEDP, pullback did not record any g radient. Then, catheter was removed and sheath was removed. TR band was placed with good hemostasis . Findings: 1.Left main; very large and normal. 2.LAD; very large vessel with proximal 30% stenosis. Diagonal branches on the rest of the LAD are e ntirely normal. 3.Left circumflex; large vessel and normal. 4.RCA; large and dominant and normal. 5.LVEDP normal at 8 mmHg. Conclusion: Mild nonobstructive coronary artery disease. Recommendations: Medical management. SR/MODL Voice ID: [id number] Report ID: [id number]
--- NOTE | 2022-10-17 14:26 | ECHO ---
HEIGHT: 6 ft 1 in WEIGHT: 277 lb 0 oz DATE OF STUDY: 10/17/[address]: Clovis Field 2-DIMENSIONAL: YES M.MODE: YES DOPPLER: YES COLOR FLOW: YES TDS: PORTABLE: YES DEFINITY: BUBBLE STUDY: DIAGNOSIS: ELEVATED TROPONIN CARDIAC HISTORY: CATHERIZATION: SURGERY: PROSTHETIC VALVE: PACEMAKER: MEASUREMENTS (cm) DIASTOLIC (NORMALS) SYSTOLIC (NORMALS) IVSd 1.0 (0.6-1.2) LA Diam (1.9-4.0) LVEF 53% LVIDd 4.8 (3.5-5.7) LVIDs 3.5 (2.0-3.5) %FS 27% LVPWd 1.3 (0.6-1.2) Ao Diam 3.3 (2.0-3.7) 2 DIMENSIONAL ASSESSMENT: RIGHT ATRIUM: NORMAL LEFT ATRIUM: NORMAL RIGHT VENTRICLE: NORMAL LEFT VENTRICLE: NORMAL TRICUSPID VALVE: MILD TRICUSPID REGURGITATION MITRAL VALVE: MILD MITRAL REGURGITATION PULMONIC VALVE: NORMAL AORTIC VALVE: NORMAL PERICARDIAL EFFUSION: NONE AORTIC ROOT: NORMAL LEFT VENTRICULAR WALL MOTION: NORMAL DOPPLER/COLOR FLOW: SEE BELOW COMMENTS: 1. NORMAL LEFT VENTRICULAR EJECTION FRACTION 50-55% WITH NORMAL WALL MOTION 2. MILD MITRAL REGURGITATION 3. MILD TRICUSPID REGURGITATION 4. GRADE I DIASTOLIC DYSFUNCTION TECHNOLOGIST: IDDIER MENDEZ
[2022-10-17 15:24] VITALS: O2SAT 96
[2022-10-17 15:53] VITALS: BP 116/56
--- NOTE | 2022-10-18 01:18 | CON ---
Date of Consultation: 10/17/2022 Reason For Consultation: Shortness of breath and elevated troponin. History Of Present Illness: This is a 61-year-old male, history of prostate cancer, breast cancer, l eddi cancer, presented with shortness of breath and mild chest discomfort. He has been having some ti ghtness also in the chest and chest congestion. Upon evaluation in the emergency room, he was found to have an elevated troponin, hence I was consulted to further evaluate. Past Medical History: As outlined above in the HPI. Medications: Refer reconciliation sheet for detailed list. Allergies: NO KNOWN DRUG ALLERGIES. Family History: No premature coronary artery disease or cancer. Social History: Does not smoke or drink. Does not use any drugs. Review of Systems: All systems reviewed. They were negative except as mentioned in HPI. Physical Examination: Vital Signs: Temperature is 98.1, pulse 85, breathing at 15, blood pressure 145/85, and saturating 9 6% on room air. General: Pleasant, middle-aged male, in no apparent distress. Head And Neck: Pupils are equal and reactive to light. Intact eye movements. No JVD. No cervical nodes. Neck: Supple. Thyroid is not enlarged. Lungs: Clear to auscultation bilaterally. No rhonchi, rales, or crackles. No accessory muscle use. Heart: Regular rate and rhythm. No extra sounds. Abdomen: Soft, nontender. Bowel sounds positive. No organomegaly. No masses or hernia. No rigidi ty or rebound. Extremities: No edema, clubbing, or cyanosis. Intact pulses. Skin: No rash. Neurologic: Alert, awake, oriented x3. No acute focal deficits appreciated. Lymph Nodes: No cervical or axillary lymphadenopathy. Investigations: Troponin 67, BUN 17, creatinine 1.0, and hemoglobin 12.6. Assessment And Recommendation: 1.Chest pain with elevated troponin with multiple risk factors including obesity, hypertension, dysl ipidemia. Recommend to proceed with coronary angiogram to evaluate the coronary anatomies. If no co ronary artery disease, then the patient can be released later today. 2.Hypertension. Blood pressure is controlled. Continue current management. 3.Shortness of breath, likely due to diastolic heart failure. Obtain an echo to further evaluate. Thank you for the consult. /ILIR Voice ID: [id number] Report ID: [id number]
== END 2022-10-17 17:05 | disposition home or self-care (01) | DRG 193 ==
LOC: ER 09:37 → ERHOLD 13:12 → 4TH 15:43
PROVIDERS: ADMIT Hospitalist; ATTEND Hospitalist
PROC: 4A023N7 Measurement of Cardiac Sampling and Pressure, Left Heart, Percutaneous Approach (ICD-10-PCS; principal; 2022-10-17)
PROC: B2111ZZ Fluoroscopy of Multiple Coronary Arteries using Low Osmolar Contrast (ICD-10-PCS; 2022-10-17)
DX: J18.9 Pneumonia, unspecified organism (principal); I21.4 Non-ST elevation (NSTEMI) myocardial infarction; I13.0 Hypertensive heart and chronic kidney disease with heart failure and stage 1 through stage 4 chronic kidney disease, or unspecified chronic kidney disease; I50.22 Chronic systolic (congestive) heart failure; N18.2 Chronic kidney disease, stage 2 (mild); K21.9 Gastro-esophageal reflux disease without esophagitis; I25.10 Atherosclerotic heart disease of native coronary artery without angina pectoris; C50.929 Malignant neoplasm of unspecified site of unspecified male breast; F17.220 Nicotine dependence, chewing tobacco, uncomplicated; R00.1 Bradycardia, unspecified; Z85.46 Personal history of malignant neoplasm of prostate; Z90.10 Acquired absence of unspecified breast and nipple; Z79.899 Other long term (current) drug therapy; Z85.118 Personal history of other malignant neoplasm of bronchus and lung
CPT/HCPCS: 36415; 71045; 71275; 76937; 80048; 80061; 80076; 83036; 83735; 83880; 84100; 84145; 84439; 84443; 84484; 85025; 85610; 87040; 93005; 93306; 93458; 96374; 99285; C1893; J0461; J0692; J0696; J1644; J1650; J2001; J2250; J2405; J3010; J3475; J7040; J7050; Q9966; Q9967

== ENCOUNTER 2023-10-22 07:26 | Inpatient (IN) | payer OTHER ==
[2023-10-22] MEDS ORDERED: ONDANSETRON 4 MG/2 ML VIAL ONE (08:34)
[2023-10-22] MEDS ORDERED: NA CHLORIDE 0.9% 1,000 ML ONE (08:34)
--- NOTE | 2023-10-22 08:35 | RAD REPORT ---
EXAM DESCRIPTION: RADChest Single View10/22/2023 8:05 am CLINICAL HISTORY: SOB COMPARISON: Chest Single View dated 10/20/2023; Chest Single View dated 08/07/2023; Chest Single View dated 10/16/2022; Chest Pa And Lat (2 Views) dated 09/16/2017 TECHNIQUE: Portable AP view of the chest. FINDINGS: Right IJ Port-A-Cath unchanged in position. Persistent cardiomegaly and findings of centra l venous congestion. Moderate layering right pleural effusion is grossly stable. No pneumothorax or sizable left effusion. The cardiomediastinal contours are unremarkable. IMPRESSION: Stable findings as above.
[2023-10-22] MEDS: FENTANYL 25 MCG/PATCH TD SCH (09:00)
[2023-10-22 09:41] LABS: Absolute Lymphocytes (CBC) 0.3 K/uL (0.7-4.9); Absolute Monocytes 0.8 K/uL (0.1-1.3); Absolute Neutrophil 15.8 K/uL (1.8-8.0); Basophils % 0.1 % (0-1.3); Hematocrit 46.6 % (39.6-49.0); Hemoglobin 14.6 g/dL (13.6-17.9); Lymphocytes % 1.6 % (15.3-44.8); MCH 32.6 pg (27.0-35.0); MCHC 31.3 g/dL (32.0-36.0); MCV 104.1 fL (80-100); MPV 7.6 fL (7.6-11.3); Monocytes % 4.8 % (3.3-12.3); Neutrophils % 93.5 % (41.7-73.7); Platelets 332 thou/uL (152-406); RBC Red Blood Cell Count 4.47 M/uL (4.33-5.43); Red Cell Distribution Width 17.1 % (12.1-15.2)
[2023-10-22 10:10] LABS: Albumin 3.3 g/dL (3.4-5.0); Albumin/Globulin Ratio 0.7 (1.1-1.8); Anion Gap 12.6 mEq/L (5.0-15.0); Bilirubin Total 0.5 mg/dL (0.2-1.0); Globulin 4.8 g/dL (2.3-3.5); Magnesium 2.4 mg/dL (1.6-2.4); Potassium 5.6 mEq/L (3.5-5.1); Protein, Total 8.1 g/dL (6.4-8.2)
[2023-10-22 10:13] LABS: Troponin High Sensitivity 1403.4 pg/mL (<58.9)
[2023-10-22 10:48] LABS: Platelet Estimate ADEQ; Platelets Clumped FEW; White Blood Cell Scan OK (OK)
[2023-10-22 10:49] LABS: Blood Morphology Comment NOT SEEN (NOT SEEN)
--- NOTE | 2023-10-22 10:59 | RAD REPORT ---
EXAM DESCRIPTION: CT - Chest Abd Pelvis Wo Con - 10/22/2023 10:19 am CLINICAL HISTORY: abdominal pain, SOB s/p port placement Friday, hx cancer COMPARISON: Chest Abdomen W Con dated 09/16/2023; Thorax W/ Con dated 06/17/2023; Chest Abdomen W Con dated 03/26/2023; Thorax W/ Con dated 01/06/2023; Chest Single View dated 10/22/2023 TECHNIQUE: Thin axial CT images of the chest, abdomen, and pelvis, performed without intravenous con trast. Multiplanar reformats were generated and reviewed. All CT scans are performed using dose optimization technique as appropriate and may include automated exposure control or mA/KV adjustment according to patient size. FINDINGS: Motion artifact somewhat limits evaluation throughout the exam. Moderate layering right pleural effusion, with underlying atelectasis including complete collapse of the right lower lobe. Anterior right upper lobe peribronchovascular 1.3 cm nodule is stable to minima lly increased in size. Prominence of the central pulmonary vessels with left more than right confluen t airspace opacities and interstitial prominence are present suggesting a degree of pulmonary edema. Right chest wall Port-A-Cath in place. Trace pericardial effusion.No left-sided effusion. No pneumoth orax.Soft tissue nodularity in the superior mediastinum which may be encroaching upon the right brach iocephalic vein and proximal SVC is probably stable although not well evaluated given absence of IV c ontrast. Small enlarged lymph nodes in the prevascular space are also grossly stable. No progressive intrathoracic adenopathy, within limits of noncontrast evaluation. The liver, spleen, pancreas, adrenal glands and kidneys are within normal limits. Status post cholecy stectomy. No bowel obstruction, free air, free fluid or abscess. Urinary bladder is decompressed with Goss cat heter in place . Grossly stable retroperitoneal lymphadenopathy with the largest lymph node seen in the retrocaval space, measuring 1.6 cm in short axis. Stable distribution of numerous sclerotic lesions throughout the axial skeleton, concerning for osseo us metastatic disease. Grade 1 spondylolisthesis at L5-S1, stable. IMPRESSION: Central patchy alveolar and interstitial opacities concerning for central congestion/ ed angelique. Moderate layering right pleural effusion. Stable to minimally increased size of right upper lobe peribronchovascular 1.3 cm nodule. Soft tissue nodularity in the superior mediastinum which may be encroaching upon the right brachiocephalic vein and proximal SVC is probably stable although not well evaluated given absence of IV contrast. Stable metastatic lymphadenopathy in the mediastinum and retroperitoneal space. Mild pericardial effusion. Stable distribution of osseous metastatic disease.
[2023-10-22] MEDS ORDERED: PIPERACIL/TAZO 4.5 GM VIAL IV ONE (12:03)
[2023-10-22] MEDS ORDERED: ALBUTEROL 2.5 MG/3 ML NEB SOL ONE ×3 (12:03→15:22)
[2023-10-22] MEDS ORDERED: NA CHLORIDE 0.9% 500 ML ONE (12:04)
[2023-10-22] MEDS ORDERED: INSULIN REGULAR (HUMAN) 100 UNIT/ML ONE (12:04)
[2023-10-22] MEDS ORDERED: NA CHLORIDE 0.9% 100 ML ONE (12:04)
[2023-10-22] MEDS ORDERED: CALCIUM GLUCONATE 1 GM IVPB 1 GM/50 ML BAG IV ONE (12:05)
[2023-10-22] MEDS ORDERED: D50W 25 GM/50 ML SYRINGE IV ONE (12:05)
--- NOTE | 2023-10-22 12:16 | EDPHYS ---
Physician Documentation [facility] Name: Kev Huitron Age: 62 yrs Sex: Male : 1960 Arrival Date: 10/22/2023 Time: 07:26 Bed 5 Private MD: ED Physician Karie Agee HPI: 10/21 07:43 This 62 yrs old Male presents to ER via Unassigned with complaints of Abdominal Pain, sd2 Vomiting. 07:43 62 yo M presents with CC of abdominal pain, n/v and SOB since port placement on Friday. sd2 Reports ongoing SOB x months per at but has been requiring continuous oxygen 2L at home since the port placement on Friday. No known fever, diarrhea or urinary symptoms. Was supposed to start chemo today with Dr. Casarez. Pt denies any current abdominal pain. . Historical: - Allergies: 07:45 No Known Allergies; ll1 - PMHx: 07:45 Cancer; Prostate Cancer; ll1 - PSHx: 07:45 back; ll1 - Immunization history:: Adult Immunizations up to date. - Infectious Disease History:: Denies. - Social history:: Smoking status: Patient denies any tobacco usage or history of. ROS: 07:43 Constitutional: Negative for fever, chills, and weight loss, Eyes: Negative for injury, sd2 pain, redness, and discharge, Cardiovascular: Negative for chest pain, palpitations, and edema, 07:43 MS/Extremity: Negative for injury and deformity, Skin: Negative for injury, rash, and discoloration, Neuro: Negative for headache, numbness and tingling. 07:43 Respiratory: Positive for dyspnea on exertion, shortness of breath, Negative for acute changes, 07:43 Abdomen/GI: Positive for abdominal pain, nausea and vomiting, Negative for diarrhea, hematemesis, Exam: 07:43 Constitutional: This is a well developed, well nourished patient who is awake, alert, sd2 and in no acute distress. Head/Face: Normocephalic, atraumatic. Eyes: EOMI, normal conjunctiva bilaterally Chest/axilla: Normal chest wall appearance and motion. Nontender with no deformity. Cardiovascular: Bradycardic rate and rhythm with a normal S1 and S2. No gallops, murmurs, or rubs. 2+ distal pulses. Respiratory: Lungs have equal breath sounds bilaterally, diminished throughout. Subcostal and intercostal retractions noted. Abdomen/GI: Soft, non-tender, with normal bowel sounds. No guarding or rebound. No evidence of tenderness throughout. Skin: Warm, dry with normal turgor. Pallor noted with no rashes, no lesions, and no evidence of cellulitis. MS/ Extremity: Pulses equal, no cyanosis. Neurovascular intact. Full, normal range of motion. Psych: Awake, alert, with orientation to person, place and time. Behavior, mood, and affect are within normal limits. 11:20 ECG was reviewed by the Attending Physician. A-fib w/RVR, rate 107, PVC present, sd2 wandering baseline, no STEMI criteria Vital Signs: 07:35 BP 101 / 65; Pulse 110; Resp 28; Temp 97.3; Pulse Ox 90% on 2 lpm NC; Weight 116.12 kg; ll1 Height 5 ft. 1 in. ; 09:19 Pulse 112; Resp 24; Pulse Ox 100% on R/A; ld1 10:50 BP 93 / 64; Pulse 93; Resp 20; Pulse Ox 95% on 3 lpm NC; ld1 13:26 BP 83 / 65; Pulse 106; Resp 24; Pulse Ox 92% on 5 lpm NC; ld1 14:15 BP 73 / 44; Pulse 96; Resp 17; Pulse Ox 97% on BiPAP; ld1 14:28 BP 81 / 57; Pulse 97; Resp 26; Pulse Ox 96% on BiPAP; ld1 14:30 BP 93 / 60; Pulse 91; Resp 18; Pulse Ox 99% on BiPAP; ld1 07:35 Body Mass Index 48.37 (116.12 kg, 154.94 cm) ll1 Procedures: 09:25 Peripheral line: by aseptic technique a peripheral line was placed in the right sd2 antecubital vein, US-guided. 09:52 Peripheral line: by aseptic technique a peripheral line was placed in the right sd2 Brachial/above elbow. 16:13 Central Line: the site was prepped with in sterile fashion, a triple lumen catheter was sd2 inserted, in the left internal jugular vein, in 1 attempts. placement was verified, by CXR, the site was dressed with Tegaderm, using sterile technique, the patient tolerated the procedure, well. MDM: 07:34 Patient medically screened. sd2 07:43 Differential diagnosis: Nonspecific abd pain, gastritis, cholecystitis, pancreatitis, sd2 appendicitis, diverticulitis, viral gastroenteritis, PE, pleural effusion, ACS, PNA among others. Data reviewed: vital signs, nurses notes, old medical records, Recent operative report and prior hospitalization discharge summary reviewed. I considered the following discharge prescriptions or medication management in the emergency department Medications were administered in the Emergency Department. See MAR. Historians other than the Patient: Spouse/Significant Other: at BS provides hx due to patient weakness and inability to talk much. Care significantly affected by the following chronic conditions: Cancer. 09:52 ED course: Initial US guided IV slipped out while taping down with RN. New US guided IV sd2 placed to R brachial vein at this time without complication. . 10/21 07:42 Order name: CBC with Diff; Complete Time: 11:15 10/21 07:42 Order name: CMP; Complete Time: 11:15 10/21 07:42 Order name: Magnesium; Complete Time: 11:15 2 10/21 07:42 Order name: Troponin High Sensitivity; Complete Time: 11:15 sd2 10/21 07:42 Order name: BNP; Complete Time: 11:15 2 10/21 07:42 Order name: Procalcitonin; Complete Time: 11:15 sd2 10/21 07:42 Order name: Lactate w/ 2H reflex if indic.; Complete Time: 10:07 10/21 07:42 Order name: Urinalysis w/ reflexes 2 10/21 07:42 Order name: Lipase; Complete Time: 11:15 2 10/21 09:42 Order name: Blood Culture Adult (2) 2 10/21 10:49 Order name: CBC Smear Scan; Complete Time: 11:15 EDMS 10/21 12:04 Order name: Ghost Lactate-NO COLLECT Timer; Complete Time: 12:10 EDMS 10/21 12:54 Order name: Ptt, Activated; Complete Time: 16:14 ph 10/21 13:51 Order name: Lactate w/ 2H reflex if indic. ED10/21 13:51 Order name: Basic Metabolic Panel 10/21 13:51 Order name: Basic Metabolic Panel EDMS 10/21 13:51 Order name: Basic Metabolic Panel EDMS 10/21 13:51 Order name: CBC with Automated Diff EDMS 10/21 13:51 Order name: CBC with Automated Diff EDMS 10/21 13:51 Order name: CBC with Automated Diff EDMS 10/21 13:51 Order name: CBC with Automated Diff EDMS 10/21 13:51 Order name: CBC with Automated Diff EDMS 10/21 13:51 Order name: Comprehensive Metabolic Panel EDMS 10/21 13:51 Order name: Comprehensive Metabolic Panel EDMS 10/21 13:51 Order name: Comprehensive Metabolic Panel EDMS 10/21 13:51 Order name: CBC with Automated Diff EDMS 10/21 13:51 Order name: ABG Arterial Blood Gas EDMS 10/21 13:52 Order name: Comprehensive Metabolic Panel EDMS 10/21 13:52 Order name: Comprehensive Metabolic Panel EDMS 10/21 13:52 Order name: Comprehensive Metabolic Panel EDMS 10/21 13:52 Order name: Magnesium EDMS 10/21 13:52 Order name: Magnesium EDMS 10/21 13:52 Order name: Phosphorus EDMS 10/21 13:52 Order name: Phosphorus EDMS 10/21 13:52 Order name: Troponin High Sensitivity EDMS 10/21 13:52 Order name: Troponin High Sensitivity EDMS 10/21 13:52 Order name: Troponin High Sensitivity EDMS 10/21 15:02 Order name: ABG Arterial Blood Gas; Complete Time: 16:14 EDMS 10/21 15:32 Order name: Glucose, Ancillary Testing; Complete Time: 16:14 EDMS 10/21 15:36 Order name: Lactate Sepsis 2 HR Follow-up; Complete Time: 16:14 EDMS 10/21 07:42 Order name: XRAY Chest (1 view); Complete Time: 09:52 sd2 10/21 10:06 Order name: Chest Abd Pelvis Wo Con; Complete Time: 11:15 EDMS 10/21 12:17 Order name: Echo w/ Doppler sd2 10/21 15:21 Order name: RAD; Complete Time: 16:14 EDMS 10/21 13:51 Order name: CONS Physician Consult EDOR 10/21 13:51 Order name: CONS Physician Consult EDMS 10/21 13:52 Order name: Patient Safety Orders EDOR 10/21 07:42 Order name: EKG - Nurse/Tech; Complete Time: 10:11 sd2 Administered Medications: 10:11 Drug: Ondansetron IVP 4 mg IVP once; over 2 minutes Route: IVP; Site: right upper arm; ld1 10:11 Drug: NS 0.9% IV 500 ml IV at bolus once Route: IV; Rate: bolus; Site: right upper arm; ld1 12:23 Drug: NS 0.9% IV 500 ml IV at bolus once Route: IV; Rate: bolus; Site: right ph antecubital; 12:23 Drug: Calcium Gluconate IVPB 1 grams IVPB once over 60 mins; (mix in NS 100 mL) Route: ph IVPB; Infused Over: 60 mins; Site: right antecubital; 12:23 Drug: Albuterol Inhalation 5 mg Inhalation once Route: Inhalation; ph 12:23 Drug: D50W IVP 50 ml IVP once; (1 amp) Route: IVP; Site: right antecubital; ph 12:25 Drug: Insulin Regular Human IVP 10 units IVP once {Co-Signature: ivania1 (Wendy Springer ph RN).} Route: IVP; Site: right antecubital; 13:09 Drug: Heparin (DVT/PE- Bolus per protocol) - HEParin IVP 80 units/kg IVP once; Max ph 8,000 units {Co-Signature: ld1 (Wendy Springer RN).} Route: IVP; Site: right antecubital; 13:10 Drug: Piperacillin-Tazobactam IVPB 4.5 grams IVPB once over 60 mins; (mix in 100 mL NS) ph Route: IVPB; Infused Over: 60 mins; Site: right antecubital; 13:10 Drug: Heparin (DVT/PE Drip) 18 units/kg/hr - ([place] [address] units, D5W IV 500 ml) IV ph at calculated rate Per protocol; Max initial rate 1800 units/hr {Co-Signature: [email or web address] (Wendy Springer RN).} Route: IV; Rate: calculated rate; Site: right antecubital; 14:37 Drug: vancoMYCIN IVPB 1.5 grams IVPB at calculated rate once Route: IVPB; Rate: ld1 calculated rate; Site: left jugular; 14:48 Not Given (Low BP): [id number] mg IVP once; give over 2 minutes ld1 Disposition Summary: 10/22/23 12:15 Hospitalization Ordered Notes: Hospitalization Status: Inpatient Admission sd2 Provider: Erika Garrett2 Location: Intensive Care Unit sd2 Condition: Stable sd2 Problem: new sd2 Symptoms: are unchanged sd2 Bed/Room Type: Standard ma2 Room Assignment: 5-(10/22/23 15:16) ja1 Diagnosis - CHF Exacerbation sd2 - NSTEMI sd2 - Atrial fibrillation with rapid ventricular response sd2 - Acute renal failure sd2 - Hyperkalemia sd2 - Vomiting sd2 - History of prostate cancer sd2 - History of chemoradiation sd2 Forms: - Medication Reconciliation Form sd2 - SBAR form sd2 - Leadership Thank You Letter sd2 Critical care time excluding procedures: 12:17 Critical care time: Bedside Care: 60 minutes, Consultation: 15 minutes, Family sd2 Intervention: 15 minutes. Total time: 90 minutes Signatures: Dispatcher [employer] EDSandra Eisenberg RN RN ph Aguilar, Jose, RN RN ja1 Lewis, Lynsay, RN RN ll1 Sims, Lauren, RN RN ld1 Dunlop, Stephanie, MD MD sd2 Wendy Springer RN1 Corrections: (The following items were deleted from the chart) 07:43 07:43 CBC+H.LAB.BRZ ordered. EDMS EDMS 07:43 07:43 COMPREHENSIVE METABOLIC PANEL+C.LAB.BRZ ordered. EDMS EDMS 07:43 07:43 MAGNESIUM+C.LAB.BRZ ordered. EDMS EDMS 07:43 07:43 Troponin High Sensitivity+C.LAB.BRZ ordered. EDMS EDMS 07:43 07:43 PROBNP+C.LAB.BRZ ordered. EDMS EDMS 07:43 07:43 PCT+C.LAB.BRZ ordered. EDMS EDMS 07:43 07:43 LACTATE+C.LAB.BRZ ordered. EDMS EDMS 07:43 07:43 Urinalysis+U.LAB.BRZ ordered. EDMS EDMS 07:43 07:43 LIPASE+C.LAB.BRZ ordered. EDMS EDMS 10:06 07:43 Chest Abdomen Pelvis W Con+CT.RAD.BRZ ordered. EDMS EDMS 13:54 13:54 Chest Single View+RAD.RAD.BRZ ordered. EDMS EDMS 14:54 14:54 Arterial Blood Gas+RC.LAB.BRZ ordered. EDMS EDMS 15:16 12:15 sd2 ja1
--- NOTE | 2023-10-22 12:16 | ER ---
Nurse's Notes [facility] Name: Kev Huitron Age: 62 yrs Sex: Male : 1960 Arrival Date: 10/22/2023 Time: 07:26 Bed 5 Private MD: Diagnosis: CHF Exacerbation;NSTEMI;Atrial fibrillation with rapid ventricular response;Acute renal failure;Hyperkalemia;Vomiting;History of prostate cancer;History of chemoradiation Presentation: 10/21 07:35 Chief complaint: Patient states: N/V with abdominal pain started on Friday after ll1 surgery, for port placement R chest. Coronavirus screen: Client denies travel out of the [place] in the last 14 days. fatigue, nausea, vomiting. Client presents with at least one sign or symptom that may indicate coronavirus-19. Standard/surgical mask placed on the client. Ebola Screen: Patient denies travel to an Ebola-affected area in the 21 days before illness onset. Initial Sepsis Screen: Does the patient meet any 2 criteria? No. Patient's initial sepsis screen is negative. Does the patient have a suspected source of infection? No. Patient's initial sepsis screen is negative. Risk Assessment: Do you want to hurt yourself or someone else? Patient reports no desire to harm self or others. Onset of symptoms was October 20, 2023. 07:35 Method Of Arrival: Wheelchair ll1 07:35 Acuity: ANNEMARIE 2 ll1 Triage Assessment: 07:35 General: Appears uncomfortable, ill, Behavior is cooperative, appropriate for age, ll1 flat. Pain: Denies pain. Neuro: Reports weakness. GI: Reports lower abdominal pain, upper abdominal pain, cramping, nausea, vomiting. Historical: - Allergies: 07:45 No Known Allergies; ll1 - PMHx: 07:45 Cancer; Prostate Cancer; ll1 - PSHx: 07:45 back; ll1 - Immunization history:: Adult Immunizations up to date. - Infectious Disease History:: Denies. - Social history:: Smoking status: Patient denies any tobacco usage or history of. Screenin:51 [facility] ED Fall Risk Assessment (Adult) History of falling in the last 3 months, ld1 including since admission No falls in past 3 months (0 pts) Confusion or Disorientation No (0 pts) Intoxicated or Sedated No (0 pts) Impaired Gait No (0 pts) Mobility Assist Device Used No (0 pt) Altered Elimination No (0 pt) Score/Fall Risk Level 0 - 2 = Low Risk Oriented to surroundings, Maintained a safe environment, Educated pt \T\ family on fall prevention, incl call for assistance when getting out of bed, Assessed \T\ reinforced patient's understanding of fall precautions, Provided non-skid footwear, Hourly rounding (assess needs \T\ fall precautionary measures) done, Used ambulatory aids as needed (educated on \T\ assisted with), Used gait belt as appropriate. Abuse screen: Denies threats or abuse. Denies injuries from another. Nutritional screening: No deficits noted. Tuberculosis screening: No symptoms or risk factors identified. Assessment: 07:51 General: Appears in no apparent distress. uncomfortable, Behavior is cooperative, ld1 appropriate for age, anxious. Pain: Complains of pain in abdomen Pain does not radiate. Pain currently is 8 out of 10 on a pain scale. Quality of pain is described as throbbing, Pain began suddenly, Is continuous. Neuro: Level of Consciousness is awake, alert, obeys commands, Oriented to person, place, time, situation, Appropriate for age. Cardiovascular: Capillary refill < 3 seconds Patient's skin is warm and dry. Respiratory: Airway is patent Respiratory effort is even, unlabored. GI: Abdomen is round non-distended, Bowel sounds present X 4 quads. Abd is soft Abd is non tender. : No signs and/or symptoms were reported regarding the genitourinary system. EENT: No signs and/or symptoms were reported regarding the EENT system. Derm: No signs and/or symptoms reported regarding the dermatologic system. Musculoskeletal: No signs and/or symptoms reported regarding the musculoskeletal system. 09:05 Reassessment: ERP at bedside - Ultrasound IV access attempt at this time. Unable to use ld1 left side for IV access, Right sided port insertion 1 week ago. Pt right arm swollen, 3 missed IV attempts prior to Ultrasound IV access attempt. 13:24 Reassessment: No changes from previously documented assessment. ERP at bedside ld1 inserting central line. Patient states symptoms have not improved. 14:30 Reassessment: No changes from previously documented assessment. Notified hospitalist of ld1 VS - Levophed initiated at this time. Patient states symptoms have not improved. Vital Signs: 07:35 BP 101 / 65; Pulse 110; Resp 28; Temp 97.3; Pulse Ox 90% on 2 lpm NC; Weight 116.12 kg; ll1 Height 5 ft. 1 in. ; 09:19 Pulse 112; Resp 24; Pulse Ox 100% on R/A; ld1 10:50 BP 93 / 64; Pulse 93; Resp 20; Pulse Ox 95% on 3 lpm NC; ld1 13:26 BP 83 / 65; Pulse 106; Resp 24; Pulse Ox 92% on 5 lpm NC; ld1 14:15 BP 73 / 44; Pulse 96; Resp 17; Pulse Ox 97% on BiPAP; ld1 14:28 BP 81 / 57; Pulse 97; Resp 26; Pulse Ox 96% on BiPAP; ld1 14:30 BP 93 / 60; Pulse 91; Resp 18; Pulse Ox 99% on BiPAP; ld1 07:35 Body Mass Index 48.37 (116.12 kg, 154.94 cm) ll1 ED Course: 07:29 Patient arrived in ED. ra3 07:30 Karie Agee MD is Attending Physician. sd2 07:32 Arm band placed on Patient placed in an exam room, on a stretcher. ll1 07:51 Triage completed. ll1 07:51 Patient has correct armband on for positive identification. Placed in gown. Bed in low ld1 position. Call light in reach. Side rails up X2. shelter monitor on. Pulse ox on. NIBP on. Door closed. Noise minimized. Warm blanket given. 07:54 Wendy Springer RN is Primary Nurse. ld1 08:07 XRAY Chest (1 view) In Process Unspecified. EDMS 08:47 Missed attempt(s): 22 gauge in right hand. Bleeding controlled, band aid applied, ph catheter tip intact. Missed attempt(s): 24 gauge in right hand. Bleeding controlled, band aid applied, catheter tip intact. 10:11 Blood Culture Adult (2) Sent. ld1 10:21 Chest Abd Pelvis Wo Con In Process Unspecified. EDMS 12:14 Erika Garrett MD is Hospitalizing Provider. sd2 13:25 Assisted provider with central line placement. Set up central line tray. Triple lumen ld1 line placed in right internal jugular. Line placed by Karie Agee MD Patient tolerated well. Before procedure, did Practitioner(s) obtain informed consent? Yes. Patient \T\ family education about procedure, CLABSI prevention and S/S of infection? Yes. Time-out/Briefing performed prior to start of procedure? Yes. Was handwashing/sanitizing done immediately prior to procedure? Yes. Was patient positioned to in a way to prevent air embolism? Yes. Was procedure site sterilized? Yes, with Was the site allowed to dry? Yes. Was local anesthetic and/or sedation utilized? No. During the procedure, did the Practitioner(s) maintain a sterile field? Yes. Were unused ports clamped during insertion? Yes. Was a 2nd qualified MD obtained after 3 unsuccessful insertion attempts? No. Was blood aspirated from each lumen? Yes. After the procedure, did the Practitioner(s) clean the site and apply a sterile dressing? Yes. 14:45 Patient admitted, IV remains in place. ld1 14:46 Primary Nurse role handed off by Wendy Springer RN ld1 14:46 Wendy Springer, RN is Primary Nurse. ld1 Administered Medications: 10:11 Drug: Ondansetron IVP 4 mg IVP once; over 2 minutes Route: IVP; Site: right upper arm; ld1 10:11 Drug: NS 0.9% IV 500 ml IV at bolus once Route: IV; Rate: bolus; Site: right upper arm; ld1 12:23 Drug: NS 0.9% IV 500 ml IV at bolus once Route: IV; Rate: bolus; Site: right ph antecubital; 12:23 Drug: Calcium Gluconate IVPB 1 grams IVPB once over 60 mins; (mix in NS 100 mL) Route: ph IVPB; Infused Over: 60 mins; Site: right antecubital; 12:23 Drug: Albuterol Inhalation 5 mg Inhalation once Route: Inhalation; ph 12:23 Drug: D50W IVP 50 ml IVP once; (1 amp) Route: IVP; Site: right antecubital; ph 12:25 Drug: Insulin Regular Human IVP 10 units IVP once {Co-Signature: ld1 (Wendy Springer RN).} Route: IVP; Site: right antecubital; 13:09 Drug: Heparin (DVT/PE- Bolus per protocol) - HEParin IVP 80 units/kg IVP once; Max ph 8,000 units {Co-Signature: [email or web address] (Wendy Springer RN).} Route: IVP; Site: right antecubital; 13:10 Drug: Piperacillin-Tazobactam IVPB 4.5 grams IVPB once over 60 mins; (mix in 100 mL NS) ph Route: IVPB; Infused Over: 60 mins; Site: right antecubital; 13:10 Drug: Heparin (DVT/PE Drip) 18 units/kg/hr - ([place] [address] units, D5W IV 500 ml) IV ph at calculated rate Per protocol; Max initial rate 1800 units/hr {Co-Signature: ivania1 (Wendy Springer RN).} Route: IV; Rate: calculated rate; Site: right antecubital; 14:37 Drug: vancoMYCIN IVPB 1.5 grams IVPB at calculated rate once Route: IVPB; Rate: ld1 calculated rate; Site: left jugular; 14:48 Not Given (Low BP): [id number] mg IVP once; give over 2 minutes ld1 Medication: 14:45 VIS not applicable for this client. ld1 Outcome: 12:15 Decision to Hospitalize by Provider. sd2 14:44 Condition: stable ld1 14:45 Admitted to ICU ld1 14:45 Instructed on the need for admit, 14:45 Patient left the ED. ld1 16:18 Patient left the ED. ld1 Signatures: Dispatcher [employer] Sandra Mejia RN RN Sherwin Martinez RN RN 1 Wendy Springer RN RN ld1 Karie Agee MD MD sd Kaley Madison ra3 Wendy Springer RN ld1 Corrections: (The following items were deleted from the chart) 13:26 07:51 No provider procedures requiring assistance completed. ld1 ld1
[2023-10-22] MEDS ORDERED: HEPARIN 5000 UNIT/ML 1 ML VIAL ONE (12:49)
[2023-10-22] MEDS ORDERED: HEPARIN/D5W 25,000 UNIT/500 ML BAG IV ONE (12:50)
[2023-10-22] MEDS: VANCOMYCIN 1.5 GM in NA CHLORIDE 0.9% 500 ML IVPB ONE (13:00)
--- NOTE | 2023-10-22 13:00 | P.HP ---
Certification for Inpatient Patient admitted to: Inpatient With expected LOS: >2 Midnights Patient will require the following post-hospital care: Hospice Practitioner: I am a practitioner with admitting privileges, knowledge of patient current condition, hospital course, and medical plan of care. Services: Services provided to patient in accordance with Admission requirements found in Title 42 Section 412.3 of the Code of Federal Regulations <Tameka Adame - Last Filed: 10/22/23 13:53> Patient History Date of Service: 10/22/23 Reason for admission: Cardiorenal failure History of Present Illness: Mr. Huitron is a 62-year-old gentleman with an unfortunate history of breast diagnosed initially in 2017 that has continued to metastasize to the chest wall/lung/possibly liver/bones , congestive heart failure, dyslipidemia, who recently had a port placed (10/20/23) for another course of chemo that was to start today. His states he is frequently short of breath over the last couple of months and uses 2 L of oxygen at home. However he has had to use the oxygen continuously since the port placement on Friday. Of note, he was admitted 08/07/2023 for bradycardia status post beginning of beta-maría and Entresto. The beta-maría was discontinued and Mr. Huitron was discharged home in stable condition. At that time, his creatinine was 0.98 with a BUN of 19, troponin 21, hemoglobin 13.3. He arrived to the emergency department this morning in mild to moderate respiratory distress. He denies fever, diarrhea, urinary symptoms but does report some abdominal pain. On EKG assessment, A-fib with RVR was noted, Dr. Owen was consulted, and went to the ED to see the patient. An echocardiogram and a heparin drip were ordered. The hospitalist program was asked to admit the patient, on assessment the patient is in moderate respiratory distress (seesaw respirations at 24), hypotensive (83/65), poorly responsive, with a very poor prognosis. The greenhouse specialist was asked to obtain an ICU bed assignment and a central line was requested of the emergency room physician prior to admission. Patient assessment, plan of care, treatment plan were discussed with attending MD. Labs: White count 16.9 with 93.5% neutrophil, H/H 14.6/46.[address], sodium 132, potassium 5.6, chloride 97, bicarb 28, glucose 139, BUN 42, creatinine 4.80 with a GFR of 13, mag 2.4, proBNP 14.76, procalcitonin 0.61, lactate 2.1, troponin 1403.4 Imaging: "Right IJ Port-A-Cath unchanged in position. Persistent cardiomegaly and findings of central venous congestion. Moderate layering right pleural effusion is grossly stable. No pneumothorax or sizable left effusion. The cardiomediastinal tunnel contours are unremarkable." CT chest abdomen pelvis without contrast impression: "Central patchy alveolar and interstitial opacities concerning for central congestion/edema. Moderate layering right pleural effusion. Stable to minimally increased size of right upper lobe peribronchovascular 1.3 cm nodule. Soft tissue nodularity in the superior mediastinum which may be encroaching upon the right brachial cephalic vein and proximal SVC is probably stable although not well evaluated given absence of IV contrast. Stable metastatic lymphadenopathy in the mediastinum and retroperitoneal space. Mild pericardial effusion. Stable distribution of osseous metastatic disease." 1223: Normal saline to total 1 L given in ER. Zofran 4 mg IV push given. Hyperkalemia treatment initiated in the emergency department 1332: BiPap and abg orders placed 1400: Left IJ placed per ED physician 1430: Called for hypotension systolic blood pressure 73, orders for Levophed placed - Past Medical/Surgical History Has patient received pneumonia vaccine in the past: Yes Diabetic: No -: prostate cancer -: breast cancer -: GERD -: masectomy -: prostatectomy -: knees surgery -: back surgery -: gallbladder removal Psychosocial/ Personal History: Lives at home with his - Family History Sister -: Cancer - Social History Smoking Status: Unknown if ever smoked Alcohol use: No CD- Drugs: No Caffeine use: No Place of Residence: Home <Tameka Adame - Last Filed: 10/22/23 13:53> Date of Service: 10/22/23 <Erika Garrett - Last Filed: 10/22/23 18:10> Allergies No Known Allergies Allergy (Verified 10/20/23 09:37) Home Medications: Spironolactone 25 mg PO BEDTIME 08/07/23 Exemestane [Aromasin] 25 mg PO BEDTIME 10/14/23 Sacubitril/Valsartan [Entresto 97 mg-103 mg Tablet] 1 tab PO BID 10/14/23 Review of Systems 10-point ROS is otherwise unremarkable General: Weakness, Malaise Respiratory: Shortness of Breath Gastrointestinal: Abdominal Pain <Tameka Adame - Last Filed: 10/22/23 13:53> Physical Examination - Physical Exam General: Moderate distress, Severe distress HEENT: Atraumatic, Normocephalic Neck: Supple Respiratory: Other (see saw respirations at 24, diminished - bipap ordered) Cardiovascular: Other (tachycardia), Irregular heart rate/rhythm Capillary refill: >2 Seconds Gastrointestinal: Other (see saw movement) Musculoskeletal: No clubbing Integumentary: Other (flushed with pallor) Neurological: Other (poorly communicative, opens his eyes to voice, struggling) Lymphatics: No axilla or inguinal lymphadenopathy External genitalia: Deferred Rectal: Deferred - Studies Laboratory Data (last 24 hrs) 10/22/23 10/22/23 09:34 09:34 WBC 16.90 H Hgb 14.6 Hct 46.6 Plt Count 332 Sodium 132 L Potassium 5.6 H BUN 42 H Creatinine 4.80 H Glucose 139 H Magnesium 2.4 Total Bilirubin 0.5 AST 52 H ALT 24 Alkaline Phosphatase 173 H Lipase 52 <Tameka Adame - Last Filed: 10/22/23 13:53> - Studies Laboratory Data (last 24 hrs) 10/22/23 10/22/23 10/22/23 13:00 09:34 09:34 WBC 16.90 H Hgb 14.6 Hct 46.6 Plt Count 332 APTT 34.5 Sodium 132 L Potassium 5.6 H BUN 42 H Creatinine 4.80 H Glucose 139 H Magnesium 2.4 Total Bilirubin 0.5 AST 52 H ALT 24 Alkaline Phosphatase 173 H Lipase 52 <Erika Garrett - Last Filed: 10/22/23 18:10> Assessment and Plan - Plan 09/11/20 IMMUNOHISTOCHEMISTRY/SPECIAL STAIN SUMMARY: The results of immunohistochemical studies and/or special stains are as follows: Estrogen Positive Progesterone Positive HER2 Negative PSA Negative RACHEAL-3 - Positive 11/08/21 IMPRESSION: Soft tissue lobulated mass along the left superior mediastinal fat is again seen and highly FDG avid. This is likely fractionally reduced in size but remains significant and intensity of FDG uptake. Metastatic hypermetabolic lymphadenopathy is seen in the right paratracheal region, AP window and left hilar region. Pathologic metastatic FDG activity seen in manubrium of the sternum and body of the sternum with significant sclerosis. Left anterior first through fourth ribs also involved. 10/16/22 2 DIMENSIONAL ASSESSMENT: RIGHT ATRIUM: NORMAL LEFT ATRIUM: NORMAL RIGHT VENTRICLE: NORMAL LEFT VENTRICLE: NORMAL TRICUSPID VALVE: MILD TRICUSPID REGURGITATION MITRAL VALVE: MILD MITRAL REGURGITATION PULMONIC VALVE: NORMAL AORTIC VALVE: NORMAL PERICARDIAL EFFUSION: NONE AORTIC ROOT: NORMAL LEFT VENTRICULAR WALL MOTION: NORMAL DOPPLER/COLOR FLOW: SEE BELOW COMMENTS: 1. NORMAL LEFT VENTRICULAR EJECTION FRACTION 50-55% WITH NORMAL WALL MOTION 2. MILD MITRAL REGURGITATION 3. MILD TRICUSPID REGURGITATION 4. GRADE I DIASTOLIC DYSFUNCTION Dictated By: Juan Diego De Leon 06/17/23 FINDINGS: A left upper lobe opacity is without significant change having the appearance of scarring. Minimal additional bilateral pulmonary opacities A 3.3 x 2.4 centimeter soft tissue within the right mediastinum abutting the junction of the left brachiocephalic vein and superior vena cava. (The right mediastinal mass was 2.5 x 2.3 centimeters September 2022 and 1.6 x 1 centimeter December 2022) 1.3 centimeter left hilar lymph node. (The left hilar lymph node was 12 millimeters September 2022 and 7 millimeters December 2022) Small right pleural effusion without significant change. A trace pericardial effusion 08/07/23 Admitted for bradycardia post initiation of bb with entresto. Creatinine at that time 0.98, trop 21. Removed bb from medications, kept on Entresto and added Spironolactone. Pt improved and was discharged home. 10/20/23 Right IJ portacath placed 10/22/23 (today) Cardiorenal failure with elevated troponin and proBNP HFpEF ECHO heparin drip central line for pressors - levaphed started to maintain a MAP of 65 avoid nephrotoxins Consult Cardio (Dr. Owen has seen the patient) Consult Nephr (Dr. Van) A. fib Heparin Rate control when pressure supports Hyperkalemia Albuterol 5mg additional dose given monitor and trend Dyspnea BiPap Nebs Lasix when pressure supports Metastatic cancer Oncology to follow hold chemo for now Sepsis Vanco Zosyn follow cultures trend lactate/procal - Advance Directives Does patient have a Living Will: No Does patient have a Durable POA for Healthcare: No <Tameka Adamelen - Last Filed: 10/22/23 13:53> - Plan Pt seen and examined. I agree with the note by the VOIP TECHNICIAN. Pt is a 62yo male with past medical history of breast cancer (that was diagnosed in 2017 and later metastasized to the chest wall/lung/possibly liver/bones), congestive heart failure, and dyslipidemia, who had a port placement of 10/20/23 for another course of chemo that started today. Pt's reports that he became more short of breath since placement of the Port-a-cath. On admission, lab studies show wbc 16.9, Hgb 14.6, K 5.6, Cr 4.8, troponin 1403, BNP 1476, lactate 2.1. CT chest shows bilateral pleural effusion, superior mediastinal mass. ER physician consulted cardiology who recommended heparin drip and echocardiogram. At bedside, pt is short of breath. A/P: JASNO: Likely cardiorenal. Cr is 4.8. Will give IVF, avoid nephrotoxins. COnsult Nephrology. Septic shock 2/2 pneumonia: Will continue renally dosed iv avnc and zosyn. F/u blood cx. Pt is on levophed. Acute resp failure: 2/2 Pleural effusion. Will BIPAP Hypotension: Will start levophed. Elevated BNP: BNP 4755. Will f/u Echo. NSTEMI: Troponin is 1403. Will continue heprin drip. Consulted Cardiology. A. fib: Will continue telemetry and heparin drip. Hold BB due to hypotension. Breast cancer with mets: Will continue to follow up with oncologist in clinic. <Erika Garrett - Last Filed: 10/22/23 18:10>
[2023-10-22] MEDS: HEPARIN/D5W 25,000 UNIT/500 ML BAG IV SCH (13:10)
[2023-10-22] MEDS ORDERED: NOREPINEPHRINE BITARTRATE/D5W 4 MG/250 ML KIT IV ONE (14:27)
[2023-10-22] MEDS: NOREPINEPHRINE 4 MG in D5W 250 ML IV SCH (14:44)
[2023-10-22 15:00] LABS: Blood Gas Oxyhemoglobin 95.4 % (94-97); Blood Gas THB 13.2 g/dl (12-18); Blood O2 Saturation 97.9 % (92-98.5)
[2023-10-22] MEDS: ALBUTEROL 2.5 MG/3 ML NEB SOL NEB ONE (15:20)
[2023-10-22] MEDS: IPRATROPIUM BROM 0.5MG/2.5ML NEB SCH (15:20)
--- NOTE | 2023-10-22 15:20 | RAD REPORT ---
EXAM DESCRIPTION: RAD - Chest Single View - 10/22/2023 3:15 pm CLINICAL HISTORY: central line Chest pain. COMPARISON: <Comparisons> FINDINGS: Portable technique limits examination quality. Right-sided venous catheter has been placed with its tip in the SVC. No postprocedure pneumothorax. M oderate right pleural effusion. Moderate bilateral pulmonary opacities are present likely pulmonary e marbella. The heart is moderately enlarged.
[2023-10-22] MEDS ORDERED: IPRATROPIUM BROM 0.5MG/2.5ML ONE (15:21)
[2023-10-22] MEDS: CEFEPIME 1 GM in NA CHLORIDE 0.9% 100 ML IV SCH (17:03)
[2023-10-22] MEDS: D5W IV SCH (17:44)
[2023-10-22] MEDS: NOREPINEPHRINE IV SCH (17:44)
[2023-10-22 18:17] LABS: Anion Gap 13.5 mEq/L (5.0-15.0); Potassium 4.5 mEq/L (3.5-5.1)
[2023-10-22 18:19] LABS: Troponin High Sensitivity 1691.7 pg/mL (<58.9)
[2023-10-22] MEDS ORDERED: ALBUTEROL 2.5 MG/3 ML NEB SOL NEB SCH (19:00)
[2023-10-22] MEDS: ARFORMOTEROL TARTRATE 15 MCG/2 ML VIAL.NEB NEB SCH (20:13)
[2023-10-22] MEDS: MELATONIN 5 MG TABLET PO SCH (23:12)
[2023-10-23] MEDS ORDERED: PIPER TAZO 3.375 GM in NA CHLORIDE 0.9% 100 ML IV SCH
[2023-10-23 00:35] LABS: Specific Gravity 1.024 (1.005-1.030); Sqamous Epithelial <5 /HPF (None Seen); Urine Bacteria >50 /HPF (<20); Urine Bilirubin NEGATIVE (Negative); Urine Blood 3+ (OVER) (Negative); Urine Clarity Extremely Turbid (Clear); Urine Color Light-Orange (Yellow); Urine Culture Reflex Order REFLEXED; Urine Glucose NEGATIVE (Negative); Urine Ketones NEGATIVE (Negative); Urine Microscopic Reflex YN ORDER UMIC; Urine Nitrite NEGATIVE (Negative); Urine Protein 2+ (Negative); Urine RBC >50 /HPF (None Seen); Urine Urobilinogen Normal (Normal); Urine WBC >50 /HPF (<5)
[2023-10-23 00:48] LABS: Anion Gap 11.6 mEq/L (5.0-15.0); Potassium 4.6 mEq/L (3.5-5.1)
[2023-10-23 05:14] LABS: Absolute Lymphocytes (CBC) 0.5 K/uL (0.7-4.9); Absolute Monocytes 1.9 K/uL (0.1-1.3); Absolute Neutrophil 15.9 K/uL (1.8-8.0); Basophils % 0.3 % (0-1.3); Eosinophils % 0.1 % (0-4.4); Hematocrit 38.9 % (39.6-49.0); Hemoglobin 12.7 g/dL (13.6-17.9); Lymphocytes % 2.5 % (15.3-44.8); MCH 33.1 pg (27.0-35.0); MCHC 32.6 g/dL (32.0-36.0); MCV 101.7 fL (80-100); MPV 7.8 fL (7.6-11.3); Monocytes % 10.4 % (3.3-12.3); Nucleated Red Blood Cells % 0.1 % (0-0); Platelets 334 thou/uL (152-406); RBC Red Blood Cell Count 3.82 M/uL (4.33-5.43); Red Cell Distribution Width 17.1 % (12.1-15.2)
[2023-10-23 05:20] LABS: Neutrophils % 86.7 % (41.7-73.7)
[2023-10-23 05:40] LABS: Albumin 2.6 g/dL (3.4-5.0); Albumin/Globulin Ratio 0.7 (1.1-1.8); Anion Gap 10.9 mEq/L (5.0-15.0); Bilirubin Total 0.5 mg/dL (0.2-1.0); Globulin 3.7 g/dL (2.3-3.5); Magnesium 1.9 mg/dL (1.6-2.4); Phosphorus 4.4 mg/dL (2.5-4.9); Potassium 4.9 mEq/L (3.5-5.1); Protein, Total 6.3 g/dL (6.4-8.2)
[2023-10-23] MEDS: HYDROCORTISONE SUC 100 MG INJ IV SCH (09:07)
[2023-10-23] MEDS: FUROSEMIDE 100 MG in NA CHLORIDE 0.9% 90 ML IV SCH (10:00)
--- NOTE | 2023-10-23 10:12 | P.CNS ---
Date of Consult: 10/23/23 Chief Complaint: Cardiorenal failure History of Present Illness: Patient with PMH of combined systolic and diastolic heart failure, secondary to breast cancer chemotherapy and radiation, presented with worsening SOB, bilateral lower extremities edema and right upper extremity swelling, weakness, no chest pain, no palpitations, no syncope. Allergies No Known Allergies Allergy (Verified 10/20/23 09:37) Home medications list reviewed: Yes Home Medications: RX: Spironolactone 25 mg PO BEDTIME 08/07/23 Exemestane [Aromasin] 25 mg PO BEDTIME 10/14/23 Sacubitril/Valsartan [Entresto 97 mg-103 mg Tablet] 1 tab PO BID 10/14/23 - Past Medical/Surgical History Diabetic: No -: prostate cancer -: breast cancer -: GERD -: masectomy -: prostatectomy -: knees surgery -: back surgery -: gallbladder removal Psychosocial/ Personal History: Lives at home with his - Family History Sister Medical History: Cancer - Social History Alcohol use: No CD- Drugs: No Caffeine use: No Place of Residence: Home Review of Systems 10-point ROS is otherwise unremarkable Physical Examination Temp Pulse Resp BP Pulse Ox 97.0 F 107 H 19 93/67 94 10/23/23 04:00 10/23/23 06:45 10/23/23 06:45 10/23/23 06:45 10/23/23 06:45 General: Alert, In no apparent distress HEENT: Atraumatic, PERRLA, Mucous membr. moist/pink, EOMI, Sclerae nonicteric Neck: Supple, 2+ carotid pulse no bruit, No LAD, Without JVD or thyroid abnormality Respiratory: Diminished, Crackles/rales Cardiovascular: Edema, Irregular heart rate/rhythm Gastrointestinal: Normal bowel sounds, No tenderness Musculoskeletal: No tenderness Integumentary: No rashes Neurological: Normal gait, Normal speech, Normal tone, Normal affect Lymphatics: No axilla or inguinal lymphadenopathy Laboratory Data (last 24 hrs) 10/22/23 10/22/23 10/22/23 13:00 09:34 09:34 WBC 16.90 H Hgb 14.6 Hct 46.6 Plt Count 332 APTT 34.5 Sodium 132 L Potassium 5.6 H BUN 42 H Creatinine 4.80 H Glucose 139 H Magnesium 2.4 Total Bilirubin 0.5 AST 52 H ALT 24 Alkaline Phosphatase 173 H Lipase 52 - Problems (1) Acute on chronic combined systolic and diastolic heart failure Current Visit: Yes Status: Acute Plan: Patient looks severely decompensated with decreased air entry bilaterally, crackles and +2 BLE, start lasix drip at 5 mg/hr and uptitrate to 10 mg/hr if BP permits get echo need to rule out PE as reason for acute worsening SOB, can not get CT due to JASON and VQ scan wont be accurate as this time. continue IV heparin. monitor input and output monitor and correct electrolytes. (2) Shock Current Visit: Yes Status: Acute Plan: can be multifactorial, most likely cardiac but WBCs are high too. continue IV diuresis continue vassopressors support. continue emperic antibiotics will follow up on echo (3) Atrial fibrillation Current Visit: Yes Status: Acute Plan: patient is currently in reasonable rate with his current condition, continue to monitor continue heparin drip.
--- NOTE | 2023-10-23 10:21 | RAD REPORT ---
EXAM DESCRIPTION: US - UPPER EXTREMITY VENOUS UNILATE - 10/23/2023 9:15 am CLINICAL HISTORY: Right arm swelling. Evaluate for DVT COMPARISON: None. TECHNIQUE: Real-time sonographic evaluation of the right upper extremity deep venous system was perf ormed. FINDINGS: Acute appearing thrombus along the subclavian, internal jugular, and axillary veins, with noncompressibility of the internal jugular and axillary veins. There may be early re- canalization wi th some trickle flow along the proximal internal jugular vein and subclavian vein. No intraluminal fi lling defects seen along the brachial, radial, and ulnar veins, with maintained compressibility. IMPRESSION: Acute appearing thrombosis of the subclavian, internal jugular, and axillary veins as ab ove. The findings were communicated to Dr Garrett on 10/23/2023 at 10:17 hours.
--- NOTE | 2023-10-23 10:51 | P.PN ---
Subjective Date of Service: 10/23/23 Chief Complaint: Cardiorenal failure Pt is resting comfortably in bed. He is using BIPAP. Pt has RUE swelling. Doppler ultrasound shows DVT. Pt is already on heparin drip. Cardiology is following. No other complaints. Review of Systems General: Unremarkable Eyes: Unremarkable ENT: Unremarkable Respiratory: Shortness of Breath Cardiovascular: Unremarkable Gastrointestinal: Unremarkable Genitourinary: Unremarkable Musculoskeletal: Pedal edema (on RUE) Integumentary: Unremarkable Neurological: Unremarkable Lymphatics: Unremarkable Physical Examination - Vital Signs Temperature: 97.6 F Blood Pressure: 99/60 Pulse: 108 Respirations: 33 Pulse Ox (%): 93 - Physical Exam General: Alert, In no apparent distress, Oriented x3 HEENT: Atraumatic, Normocephalic, PERRLA Neck: Supple, 2+ carotid pulse no bruit, JVD not distended Respiratory: Normal air movement, Diminished Cardiovascular: No edema, Normal pulses, Regular rate/rhythm, Normal S1 S2 Capillary refill: <2 Seconds Gastrointestinal: Normal bowel sounds, Soft and benign, Non-distended Musculoskeletal: No clubbing, No swelling, No contractures Integumentary: No rashes, No breakdown, No significant lesion Neurological: Normal speech, Normal strength at 5/5 x4 extr, Normal tone, Sensation intact Lymphatics: No axilla or inguinal lymphadenopathy - Studies Laboratory Data (last 24 hrs) 10/22/23 10/22/23 13:00 09:34 WBC 16.90 H Hgb 14.6 Hct 46.6 Plt Count 332 APTT 34.5 Assessment And Plan - Plan JASON: Likely cardiorenal. Cr is 3.99<- 4.8. Will give albumin, avoid nephrotoxins. Consulted Nephrology. RUE DVT: Doppler ultrasound shows thrombosis of the subclavian, internal jugular, and axillary veins. Will continue heparin drip Septic shock 2/2 pneumonia: Will continue renally dosed iv vanc and zosyn. F/u blood cx. Pt is on levophed. Acute resp failure: 2/2 Pleural effusion. Will continue BIPAP Hypotension: Will wean levophed as BP permits. Likely due to Cardiogenic or septic shock. Continue treatment listed above Elevated BNP: BNP 1952 <- 1691 <- 4755, suggested decompensated heart failure. Will f/u Echo. Continue lasix drip with albumin, strict I/O and low salt diet. Hyperkalemia: K is 4.9. Will monitor for now. It will improve with lasix drip. NSTEMI: Troponin is 1403. Will continue heprin drip. Consulted Cardiology. A. fib: Will continue telemetry and heparin drip. Hold BB due to hypotension. Breast cancer with mets: Will continue to follow up with oncologist in clinic. DVT ppx: Heparin drip Dispo: Pending hospital course.
[2023-10-23] MEDS: MIDODRINE HCL 5 MG TABLET PO SCH (11:11)
[2023-10-23] MEDS: ALBUMIN HUMAN 25% 12.5 GM, FUROSEMIDE 100 MG in NA CHLORIDE 0.9% 40 ML IV SCH ×2 (11:11→17:58)
--- NOTE | 2023-10-23 12:29 | P.CNS ---
Date of Consult: 10/23/23 Reason for Consult: Respiratory failure shock Chief Complaint: Respiratory failure and shock History of Present Illness: Patient is 62 years of age history of metastatic breast cancer to the hospital with respiratory failure and shock currently on BiPAP and vasopressors currently had a Port-A-Cath placed was scheduled to have some chemotherapy and developed acute renal failure and new onset right-sided pleural effusion in addition to DVT in his right arm Allergies No Known Allergies Allergy (Verified 10/20/23 09:37) Home Medications: Spironolactone 25 mg PO BEDTIME 08/07/23 Exemestane [Aromasin] 25 mg PO BEDTIME 10/14/23 Sacubitril/Valsartan [Entresto 97 mg-103 mg Tablet] 1 tab PO BID 10/14/23 - Past Medical/Surgical History Diabetic: No -: prostate cancer -: breast cancer -: GERD -: masectomy -: prostatectomy -: knees surgery -: back surgery -: gallbladder removal Psychosocial/ Personal History: Lives at home with his - Family History Sister Medical History: Cancer - Social History Alcohol use: No CD- Drugs: No Caffeine use: No Place of Residence: Home Review of Systems General: Weakness Respiratory: Shortness of Breath Musculoskeletal: Other ([place] of the right arm) Physical Examination Temp Pulse Resp BP Pulse Ox 97.6 F 101 H 18 84/63 L 99 10/23/23 10:54 10/23/23 11:00 10/23/23 11:00 10/23/23 11:00 10/23/23 11:00 General: Alert, Oriented x3, Moderate distress HEENT: Atraumatic Neck: Supple Respiratory: Diminished (Diminished on the right side) Cardiovascular: Normal S1 S2, Edema (Edema of the right arm) Gastrointestinal: Normal bowel sounds, Soft and benign Laboratory Data (last 24 hrs) 10/22/23 13:00 APTT 34.5 - Problems (1) Shock Current Visit: Yes Status: Acute Plan: Patient is 62 years of age admitted with respiratory failure shock new onset of right-sided pleural effusion acute renal failure right arm DVT white count is mildly elevated troponins also significantly elevated hypoxic hypercapnic respiratory failure continue with heparin echocardiogram is pending cultures are so far negative agree with hydrocortisone urinalysis is negative awaiting culture patient is currently on Levophed and BiPAP (2) Pleural effusion Current Visit: Yes Status: Acute Plan: Patient has right-sided pleural effusion which is new may be related to his DVT or PE or may be from his underlying malignancy or she could have been have an infection once is stabilized will consider thoracentesis now he is on heparin on August 06 his chest x-ray was normal has some right-sided atelectasis patient does have pulmonary metastases could be a malignant effusion
[2023-10-23 12:33] LABS: UR PROTEIN 124.9 mg/dL (<11.9); Urine Protein/Creatinine Ratio 0.39 ratio (<0.15)
--- NOTE | 2023-10-23 12:59 | ECHO ---
HEIGHT: 5 ft 1 in WEIGHT: 267 lb 6 oz DATE OF STUDY: 10/23/[address]: Karie Agee 2-DIMENSIONAL: YES M.MODE: YES DOPPLER: YES COLOR FLOW: YES TDS: PORTABLE: YES DEFINITY: BUBBLE STUDY: DIAGNOSIS: CONGESTIVE HEART FAILURE CARDIAC HISTORY: CATHERIZATION: NO SURGERY: NO PROSTHETIC VALVE: NO PACEMAKER: NO MEASUREMENTS (cm) DIASTOLIC (NORMALS) SYSTOLIC (NORMALS) IVSd 1.4 (0.6-1.2) LA Diam 3.1 (1.9-4.0) LVEF 35-45% LVIDd 5.0 (3.5-5.7) LVIDs 3.6 (2.0-3.5) %FS 28% LVPWd 1.4 (0.6-1.2) Ao Diam 3.5 (2.0-3.7) 2 DIMENSIONAL ASSESSMENT: RIGHT ATRIUM: NORMAL LEFT ATRIUM: NORMAL RIGHT VENTRICLE: DILATED LEFT VENTRICLE: MILD DILATED, MILD LEFT VENTRICULAR HYPERTROPHY TRICUSPID VALVE: MILD TRICUSPID REGURGITATION MITRAL VALVE: NORMAL PULMONIC VALVE: NORMAL AORTIC VALVE: NORMAL PERICARDIAL EFFUSION: SMALL CIRCUMFERENTIAL AORTIC ROOT: NORMAL LEFT VENTRICULAR WALL MOTION: MILD GLOBAL HYPOKINESIS DOPPLER/COLOR FLOW: DIASTOLIC DYSFUNCTION COMMENTS: 1. SIGNIFICANT VARIATION OF LEFT VENTRICULAR FUNCTION DUE TO ARRHYTHMIA, IN GENERAL MODERATE HYPOKINESIS (EJECTION FRACTION VARIATES BETWEEN 35-45%) 2. DILATED RIGHT VENTRICLE WITH FLATTENED SEPTUM (PRESSURE/ VOLUME OVERLOAD) 3. RIGHT VENTRICULAR FUCNTION MILD REDUCED 4. MILD TRICUSPID REGURGITATION 5. MODERATE PULMONARY HYPERTENSION (RIGHT VENTRICULAR SYSTOLIC PRESSURE 40-45 mmHg) 6. SMALL CIRCUMFERENTIAL PERICARDIAL EFFUSION 7. ELEVATED FILLING PRESSURE (RIGHT ATRIUM 15-20 mmHg) TECHNOLOGIST: JOE VICENTE
--- NOTE | 2023-10-23 13:43 | CON ---
Date of Consultation: 10/23/2023 Reason For Consultation: Elevated BUN and creatinine. History Of Present Illness: All the information has been obtained from the by bedside as the patient on BiPAP. This is a 62-year-old gentleman with significant past medical history of prostate cancer with metastasis lung and bone and liver, congestive heart failure, nonischemic cardiomyopathy, secondary to chemo, hypertension, breast cancer. The patient was in his regular state of health. The patient had a port placed in October 19. After that, the patient started having recurrent shortness of breath, for that reported to the hospital. The patient had low blood pressure down to the 80s, found to have elevation in BUN and creatinine. For that reason, the patient was admitted to the ICU, started on Levophed and the heparin drip. The patient found to be overvolume. Creatinine was 4.8, with GFR of 13. For that reason, we have been consulted. The patient denied taking any nonsteroidal. No recent exposure to contrast. Past Medical History: Include prostate cancer with met, breast cancer, GERD. Past Surgical History: Include mastectomy, prostatectomy, knee surgery, back surgery, bladder surgery. Family History: Positive for cancer. Social History: Denied smoking. Denied drinking. Denied drugs abuse. Allergies: TO NO KNOWN DRUGS ALLERGY. Home Medications: Include spironolactone Entresto. Review of Systems: Head and Neck: No red eye. No ear pain. GI: Decreased intake. : No polyuria. No dysuria. No hematuria. Audit Partner: Not applicable. Respiratory: Has shortness of breath. Cardiovascular: Has lymphedema. Has leg swelling. Has orthopnea. Endocrine: No polydipsia. Skin: No rash. Neuro: Has neuropathy. Musculoskeletal: Generalized fatigue. Physical Examination: Vital Signs: When I saw the patient, blood pressure 99/60, pulse of 108, afebrile. Chest: Crackles, bilateral. Heart: S1, S2. Systolic murmur. Abdomen: Soft, nontender. Extremities: +2 edema, more swelling on the right arm with PICC line. Neurologic: Alert. No focality. Laboratory Data: WBC 18.4, hemoglobin 12.7, sodium 135, potassium 4.9, bicarb 29, BUN 51, creatinine 3.9, GFR of 16, calcium of 8, phosphorus 4.4, magnesium 1.9. Troponin 1952. Current Medications: The patient on, it includes cefepime, vancomycin, Levophed, heparin, hydrocortisone. Assessment And Plan: 1. Acute kidney injury secondary to cardiorenal, poor perfusion acute tubular necrosis, overvolume. I agree with the Lasix drip. We will use Lasix with albumin to establish better volume control and we will monitor the patient. Obstructive uropathy has been ruled out. I had long discussion with the family, with the that if kidney function continued to decline, patient may need renal replacement therapy and on agreement currently. I do not see the urgency to start it. We will follow up. 2. Shock secondary to cardiogenic/adrenal insufficiency. I agree with hydrocortisone. We will start midodrine. Continue Levophed. We will continue Lasix. Our goal for blood pressure above 90, and we will monitor. 3. Nonischemic cardiomyopathy with congestive heart failure exacerbation. As above. 4. Breast cancer with met, as by Primary. 5. Respiratory failure secondary to overvolume/pneumonia. Continue diuresis. Continue current antibiotic, dose appropriate. 6. Hyponatremia, dilutional. We will continue diuresis. Time spent examining the patient [id number], reviewing data, lab and radiology, placing order, discussing the case with the patient, discussing the case with the environmental field team member including hospitalist and nursing staff more than 75 minutes. FRANCES Voice ID: [id number] Report ID: [id number] MTDD
[2023-10-24 05:11] LABS: Absolute Lymphocytes (CBC) 0.3 K/uL (0.7-4.9); Absolute Monocytes 0.9 K/uL (0.1-1.3); Basophils % 0.2 % (0-1.3); Hematocrit 33.1 % (39.6-49.0); Lymphocytes % 1.9 % (15.3-44.8); MCH 33.3 pg (27.0-35.0); MCHC 33.1 g/dL (32.0-36.0); MCV 100.4 fL (80-100); MPV 7.7 fL (7.6-11.3); Monocytes % 5.8 % (3.3-12.3); Nucleated Red Blood Cells % 0.1 % (0-0); Platelets 271 thou/uL (152-406); Red Cell Distribution Width 16.9 % (12.1-15.2)
[2023-10-24 05:20] LABS: Neutrophils % 92.1 % (41.7-73.7)
[2023-10-24 05:42] LABS: Albumin 2.2 g/dL (3.4-5.0); Albumin/Globulin Ratio 0.6 (1.1-1.8); Anion Gap 7.2 mEq/L (5.0-15.0); Bilirubin Total 0.4 mg/dL (0.2-1.0); Globulin 3.5 g/dL (2.3-3.5); Magnesium 2.1 mg/dL (1.6-2.4); Phosphorus 4.1 mg/dL (2.5-4.9); Potassium 5.2 mEq/L (3.5-5.1); Protein, Total 5.7 g/dL (6.4-8.2); Thyroid Stimulating Hormone 0.317 uIU/mL (0.358-3.740); Uric Acid 9.1 mg/dL (3.5-7.2)
[2023-10-24] MEDS: ALBUTEROL 2.5 MG/3 ML NEB SOL NEB ONE (06:16)
--- NOTE | 2023-10-24 07:34 | RAD REPORT ---
EXAM DESCRIPTION: RAD - Chest Single View - 10/24/2023 6:11 am CLINICAL HISTORY: Will effusion Chest pain. COMPARISON: Chest Single View dated 10/22/2023; Chest Single View dated 10/22/2023; Chest Single View dated 10/20/2023; Chest Single View dated 08/07/2023 FINDINGS: Portable technique limits examination quality. Mild pulmonary edema pattern is again seen, appearing mildly improved since 10/22/2023 prior study. M ild pulmonary edema is seen. The heart is moderately enlarged in size. Venous catheters are unchanged . IMPRESSION: Mild improvement in CHF pattern seen since 10/22/2023. Moderate right pleural effusion i s stable.
--- NOTE | 2023-10-24 09:08 | P.PN ---
Subjective Date of Service: 10/24/23 Chief Complaint: Respiratory failure and shock Subjective: No new changes <Tameka Adame - Last Filed: 10/24/23 09:03> Date of Service: 10/24/23 <Erika Garrett Amita - Last Filed: 10/24/23 09:53> Physical Examination - Vital Signs Temperature: 97.5 F Blood Pressure: 122/60 Pulse: 94 Respirations: 26 Pulse Ox (%): 98 <Tameka Adame - Last Filed: 10/24/23 09:03> Assessment And Plan - Plan 09/11/20 IMMUNOHISTOCHEMISTRY/SPECIAL STAIN SUMMARY: The results of immunohistochemical studies and/or special stains are as follows: Estrogen Positive Progesterone Positive HER2 Negative PSA Negative RACHEAL-3 - Positive 11/08/21 IMPRESSION: Soft tissue lobulated mass along the left superior mediastinal fat is again seen and highly FDG avid. This is likely fractionally reduced in size but remains significant and intensity of FDG uptake. Metastatic hypermetabolic lymphadenopathy is seen in the right paratracheal region, AP window and left hilar region. Pathologic metastatic FDG activity seen in manubrium of the sternum and body of the sternum with significant sclerosis. Left anterior first through fourth ribs also involved. 10/16/22 2 DIMENSIONAL ASSESSMENT: RIGHT ATRIUM: NORMAL LEFT ATRIUM: NORMAL RIGHT VENTRICLE: NORMAL LEFT VENTRICLE: NORMAL TRICUSPID VALVE: MILD TRICUSPID REGURGITATION MITRAL VALVE: MILD MITRAL REGURGITATION PULMONIC VALVE: NORMAL AORTIC VALVE: NORMAL PERICARDIAL EFFUSION: NONE AORTIC ROOT: NORMAL LEFT VENTRICULAR WALL MOTION: NORMAL DOPPLER/COLOR FLOW: SEE BELOW COMMENTS: 1. NORMAL LEFT VENTRICULAR EJECTION FRACTION 50-55% WITH NORMAL WALL MOTION 2. MILD MITRAL REGURGITATION 3. MILD TRICUSPID REGURGITATION 4. GRADE I DIASTOLIC DYSFUNCTION Dictated By: Juan Diego De Leon 06/17/23 FINDINGS: A left upper lobe opacity is without significant change having the appearance of scarring. Minimal additional bilateral pulmonary opacities A 3.3 x 2.4 centimeter soft tissue within the right mediastinum abutting the junction of the left brachiocephalic vein and superior vena cava. (The right mediastinal mass was 2.5 x 2.3 centimeters September 2022 and 1.6 x 1 centimeter December 2022) 1.3 centimeter left hilar lymph node. (The left hilar lymph node was 12 millimeters September 2022 and 7 millimeters December 2022) Small right pleural effusion without significant change. A trace pericardial effusion 08/07/23 Admitted for bradycardia post initiation of bb with entresto. Creatinine at that time 0.98, trop 21. Removed bb from medications, kept on Entresto and added Spironolactone. Pt improved and was discharged home. 10/20/23 Right IJ portacath placed 10/22/23 (today) Cardiorenal failure with elevated troponin and proBNP HFpEF ECHO - preserved EF heparin drip central line for pressors - levaphed started to maintain a MAP of 65 10/23/23 added Midodrine avoid nephrotoxins Consult Cardio (Dr. Owen has seen the patient) Consult Nephro(Dr. Van) Started albumin/lasix drip I&O daily wt Wolfgang Sanchez. fib/DVT (large right sided clot burden right upper ext and throughout neck) Heparin drip Rate control when pressure supports Hyperkalemia Albuterol 5mg additional dose given, 10/24/23 5.2 - albuterol 12.5mg x1 nebulized monitor and trend Dyspnea BiPap Nebs Lasix when pressure supports Metastatic cancer Oncology to follow hold chemo for now Sepsis Vanco Zosyn follow cultures (cultures negative to date 10/23) trend lactate/procal <Tameka Adame - Last Filed: 10/24/23 09:03> - Plan Pt seen and examined. I agree with the note by the SWAGE TENDER. Pt is off BIPAP. He is using 9L BNC. Will add midodrine to improve BP. He has DVT in RUE. Will continue heparin drip. Cr is improving. Echo shows EF 35 - 45% with moderate pulm htn. <Erika Garrett - Last Filed: 10/24/23 09:53>
--- NOTE | 2023-10-24 13:38 | EKG ---
Test Date: 2023-10-22 Test Time: 09:44:57 Boom Cat Operator: Roge MORE MEASUREMENT RESULTS: Intervals: Rate: 107 MO: QRSD: 84 QT: 334 QTc: 445 [place]: P: MO: QRS: 109 T: 64 INTERPRETIVE STATEMENTS: Atrial fibrillation with rapid ventricular response with premature ventricular or aberrantly conducted complexes Rightward axis Low voltage QRS Nonspecific ST abnormality Abnormal ECG Compared to ECG 08/07/2023 12:31:01 Right-axis deviation now present Low QRS voltage now present ST (T wave) deviation now present Sinus rhythm no longer present Atrial premature complex(es) no longer present Electronically Signed On 10-24-23 13:32:33 CDT by Juan Diego De Leon
[2023-10-24] MEDS: AMIODARONE HCL 150 MG in D5W 100 ML IV STA (15:38)
[2023-10-24] MEDS: AMIODARONE HCL 900 MG in Dextrose 5%-Water 482 ML IV SCH ×2 (16:00)
--- NOTE | 2023-10-24 20:01 | PN ---
Date of Progress Note: 10/24/2023 Subjective: Seen by bedside. His breathing is easier now. He is not even requiring BiPAP. His res piratory distress has improved, but still shortness of breath and lower extremity edema. Review of Systems: Generally, he is weak. No nausea, vomiting, diarrhea. No abdominal pain. All other systems reviewe d are negative. Physical Examination: Vital Signs: Reviewed. Head and Neck: Pupils are equal, reactive to light. Intact eye movements. No JVD. No cervical lym phadenopathy. Neck is supple. Thyroid is not enlarged. Lungs: Clear to auscultation bilaterally. No rhonchi, wheezing, or crackles. No accessory muscle u se. Heart: Irregular. No extra sounds. Abdomen: Soft, nontender. Bowel sounds positive. No organomegaly. No masses or hernia. No rigidi ty or rebound. Extremities: No edema, clubbing, or cyanosis. Intact pulses. Skin: No rashes. Neurologic: Alert, awake, oriented x3. No acute focal deficits appreciated. Lymph Nodes: No cervical lymphadenopathy. Investigations: BUN is 64, creatinine is 2.26. Troponin is 1400, then 1600, then 1900. His white b lood cell count is 16,300. Assessment/recommendations: 1.Atrial fibrillation with rapid ventricular response and he has severe systolic heart failure. We need to get atrial fibrillation, converted to sinus rhythm due to the congestive heart failure. He h as very low ejection fraction. Start him on amiodarone drip 150 mg over 10 minutes. Then, 1 mg/gloria te for 6 hours and then 0.5 mg/minute for 16 hours and then discontinue metoprolol. 2.Systolic heart failure, severe. Continue Entresto once his kidney function improves. 3.Edema of the right upper extremity and it is a deep vein thrombosis. Recommend full anticoagulati on. He is on heparin drip, and he is going to need anticoagulation for the atrial fibrillation as we ll. So, this is to be transitioned to Eliquis at 2.5 mg twice a day and once his condition is more s table, we will plan for possible JOHN cardioversion after the amiodarone load. 4.Acute on chronic systolic heart failure exacerbation. He is doing well with Lasix, diuresing. Co ntinue BiPAP as needed. Monitor BUN, creatinine, and electrolytes very carefully. 5.Acute renal failure and this has improved significantly. His creatinine was normal back in September. Recommend Nephrology evaluation. 6.Septic shock that is under control at this moment. 7.Elevated troponin. The patient is usually seen in my office. We will review his records to see t he status of his coronaries and plan accordingly. The case was discussed with the ICU staff. /ILIR Voice ID: [id number] Report ID: [id number]
--- NOTE | 2023-10-24 20:54 | P.PN ---
Subjective Date of Service: 10/24/23 Chief Complaint: Respiratory failure Subjective: Improving (Patient is improving he is currently off vasopressors on a heparin drip he got dilated right ventricle) Review of Systems General: Weakness Respiratory: Shortness of Breath Physical Examination - Vital Signs Temperature: 97.0 F Blood Pressure: 122/63 Pulse: 87 Respirations: 26 Pulse Ox (%): 96 - Physical Exam General: Alert, Oriented x3 Respiratory: Clear to auscultation bilaterally, Diminished (Diminished on the right side) Cardiovascular: Regular rate/rhythm, Edema Assessment And Plan - Current Problems (Diagnosis) (1) Pleural effusion Current Visit: Yes Status: Acute Plan: Patient has right-sided pleural effusion which is new may be related to his DVT or PE or may be from his underlying malignancy or she could have been have an infection once is stabilized will consider thoracentesis now he is on heparin on August 06 his chest x-ray was normal has some right-sided atelectasis patient does have pulmonary metastases could be a malignant effusion (2) Pulmonary embolism Current Visit: Yes Status: Acute Plan: Patient is currently stable he does have a right arm DVT and a dilated right ventricle for the possibility of pulmonary embolism. With hypotension unable to do CT pulmonary angiogram due to his renal failure patient is not a candidate for thrombolytic agent we in view of his history of cancer also he has a significant right-sided pleural effusion hypoxic will plan to transfer him to [place] for pulmonary angiogram and possible clot extraction and followed by a possible thoracentesis and is currently stable off vasopressors also DC vancomycin and DC steroids Qualifiers: Acute cor pulmonale presence: with acute cor pulmonale
--- NOTE | 2023-10-24 23:13 | PN ---
Date of Progress Note: 10/24/2023 Chief Complaint: Acute kidney injury on chronic kidney disease. Subjective: The patient was admitted to ICU. Nephrology consultation was requested for elevated BUN and creatinine level. The patient remains on BiPAP. He is in ICU. He has shortness of breath. He is a 62-year-old man with past medical history significant for prostate cancer with metastatic lung, bone, and liver disease; congestive heart failure; nonischemic cardiomyopathy secondary to chemotherapy; hypertension; prostate cancer. The patient was in his normal state of health until day prior to admission. The patient had a port placed on October 19. After that, patient became short of breath and came to the hospital. The patient had low blood pressure, systolic blood pressure was in 90s. He was found to have elevated BUN and creatinine level and is admitted to ICU. He was started on Levophed and heparin drip. The patient was found to have volume overload. Creatinine level was up to 4.8, GFR 13. The patient denies taking nonsteroidal anti-inflammatory medication and denies recent exposure to contrast. Review of Systems: Denies chest pain, palpitation. Physical Examination: Lungs: Clear to auscultation bilaterally present. Heart: S1, S2. 2/6 systolic murmur, left lower sternal border. Abdomen: Obese, soft, nontender. Extremities: 2+ edema. Neurologic: Alert. Follow commands. Laboratory Data: BUN 51, creatinine 3.9. Estimated GFR 16. Calcium 8. Phosphorus 4.4, magnesium 1.9. Troponin 1952. Impression And Plan: 1. Acute kidney injury secondary to cardiorenal syndrome, hypoperfusion. 2. acute tubular necrosis associated with cardiorewnal syndrome and volume overload. The patient is on Lasix drip. The patient has respiratory failure, remains on BiPAP. The patient has underlying chronic kidney disease, although he developed acute kidney injury with severely elevated BUN and creatinine level. He remains nonoliguric. Obstructive uropathy was ruled out. The patient may require dialysis in the near future as fluid overload in uncontrolled with Lasix. The patient was on Levophed for hypotension. He may be a candidate for CRRT in view of hypotension. The patient was started on midodrine. 3. Nonischemic cardiomyopathy with congestive heart failure. Continue volume control with diuretics. 4. Respiratory failure secondary to pneumonia. Continue diuretics for volume overload and congestive heart failure management. Continue antibiotics. Adjust dose to renal function. 5. Hyponatremia, dilutional, in setting of congestive heart failure. Continue diuretics and low-sodium diet. EB/MODL Voice ID: [id number] Report ID: [id number] MTDD
[2023-10-25 05:27] LABS: Absolute Basophils 0.2 K/uL (0-0.5); Absolute Lymphocytes (CBC) 0.4 K/uL (0.7-4.9); Absolute Monocytes 0.9 K/uL (0.1-1.3); Absolute Neutrophil 15.7 K/uL (1.8-8.0); Basophils % 1.3 % (0-1.3); Eosinophils % 0.1 % (0-4.4); Hematocrit 35.6 % (39.6-49.0); Hemoglobin 11.7 g/dL (13.6-17.9); Lymphocytes % 2.2 % (15.3-44.8); MCH 32.8 pg (27.0-35.0); MCV 99.4 fL (80-100); MPV 7.7 fL (7.6-11.3); Neutrophils % 91.4 % (41.7-73.7); Nucleated Red Blood Cells % 0.1 % (0-0); Platelets 331 thou/uL (152-406); RBC Red Blood Cell Count 3.58 M/uL (4.33-5.43); Red Cell Distribution Width 16.7 % (12.1-15.2)
[2023-10-25 05:52] LABS: Albumin 2.4 g/dL (3.4-5.0); Albumin/Globulin Ratio 0.6 (1.1-1.8); Anion Gap 6.1 mEq/L (5.0-15.0); Bilirubin Total 0.3 mg/dL (0.2-1.0); Phosphorus 3.5 mg/dL (2.5-4.9); Potassium 5.1 mEq/L (3.5-5.1); Protein, Total 6.4 g/dL (6.4-8.2)
--- NOTE | 2023-10-25 08:35 | RAD REPORT ---
EXAM DESCRIPTION: RAD - Chest Single View - 10/25/2023 6:06 am CLINICAL HISTORY: Will effusion Chest pain. COMPARISON: Chest Single View dated 10/24/2023; Chest Single View dated 10/22/2023; Chest Single View d ated 10/22/2023; Chest Single View dated 10/20/2023 FINDINGS: Portable technique limits examination quality. Moderate right-sided pleural effusion without change. Moderate bilateral pulmonary opacities are also present, unchanged. The heart is enlarged. Venous catheter tubing is present unchanged.
--- NOTE | 2023-10-25 08:48 | RAD REPORT ---
EXAM DESCRIPTION: US - Extrem Venous W Compress Rafa - 10/24/2023 10:07 pm CLINICAL HISTORY: RO DVT Bilateral leg edema and swelling. COMPARISON: Extremity Venous [facility] dated 05/27/2017 TECHNIQUE: Real-time sonographic interrogation of the left and right lower extremity deep venous sys tems was performed. FINDINGS: Normal compressibility, flow augmentation, phasic flow and spontaneous flow is identified in both the left and right lower extremity deep venous systems. IMPRESSION: No sonographic evidence of left or right lower extremity deep venous thrombosis.
[2023-10-25] MEDS: VANCOMYCIN 1.5 GM in NA CHLORIDE 0.9% 500 ML IVPB SCH (11:34)
[2023-10-25] MEDS: CEFEPIME 2 GM in NA CHLORIDE 0.9% 100 ML IV SCH (11:34)
[2023-10-25] MEDS: ALBUMIN HUMAN 25% 12.5 GM, FUROSEMIDE 100 MG in NA CHLORIDE 0.9% 40 ML IV SCH ×2 (12:00→12:49)
[2023-10-25] MEDS: PROMETHAZINE INJ 25 MG/ML AMP ONE (12:29)
[2023-10-25] MEDS: PROMETHAZINE INJ 25 MG/ML AMP IV PRN (12:43)
[2023-10-25] MEDS ORDERED: VANCOMYCIN 1 GM in NA CHLORIDE 0.9% 250 ML IVPB SCH (13:00)
--- NOTE | 2023-10-25 13:06 | P.PN ---
Subjective Date of Service: 10/25/23 Chief Complaint: Cardiorenal - Respiratory failure, DVT/PE, metastatic ca Subjective: Other (appears tired, stayed off BiPap for most of night, was on high flow this am eating breakfast when I saw him. He has see saw respirations. Will allow to finish eggs and clear throat well. Place pt back on BiPap) <Tameka Adame - Last Filed: 10/25/23 12:52> Date of Service: 10/25/23 <TamiAngelbladimir Levi - Last Filed: 10/25/23 17:46> Review of Systems 10-point ROS is otherwise unremarkable General: Weakness, Malaise, As per HPI Respiratory: Shortness of Breath, SOB with Excertion <Tameka Adame - Last Filed: 10/25/23 12:52> Physical Examination - Vital Signs Temperature: 96.8 F Blood Pressure: 139/77 Pulse: 90 Respirations: 19 Pulse Ox (%): 98 - Physical Exam General: Oriented x3, Mild distress, Obese HEENT: Atraumatic, Normocephalic Neck: Supple Respiratory: Diminished, Dull, Crackles/rales Cardiovascular: Other (edema to lower ext improved, right arm with DVT and edema), Irregular heart rate/rhythm, Systolic murmur Capillary refill: <2 Seconds Gastrointestinal: Soft and benign Musculoskeletal: No clubbing Integumentary: No rashes Neurological: Normal speech, Normal tone, Other (appears tired) Lymphatics: No axilla or inguinal lymphadenopathy External genitalia: Deferred Rectal: Deferred <AdameTameka Arita - Last Filed: 10/25/23 12:52> Assessment And Plan - Plan 09/11/20 IMMUNOHISTOCHEMISTRY/SPECIAL STAIN SUMMARY: The results of immunohistochemical studies and/or special stains are as follows: Estrogen Positive Progesterone Positive HER2 Negative PSA Negative RACHEAL-3 - Positive 11/08/21 IMPRESSION: Soft tissue lobulated mass along the left superior mediastinal fat is again seen and highly FDG avid. This is likely fractionally reduced in size but remains significant and intensity of FDG uptake. Metastatic hypermetabolic lymphadenopathy is seen in the right paratracheal region, AP window and left hilar region. Pathologic metastatic FDG activity seen in manubrium of the sternum and body of the sternum with significant sclerosis. Left anterior first through fourth ribs also involved. 10/16/22 2 DIMENSIONAL ASSESSMENT: RIGHT ATRIUM: NORMAL LEFT ATRIUM: NORMAL RIGHT VENTRICLE: NORMAL LEFT VENTRICLE: NORMAL TRICUSPID VALVE: MILD TRICUSPID REGURGITATION MITRAL VALVE: MILD MITRAL REGURGITATION PULMONIC VALVE: NORMAL AORTIC VALVE: NORMAL PERICARDIAL EFFUSION: NONE AORTIC ROOT: NORMAL LEFT VENTRICULAR WALL MOTION: NORMAL DOPPLER/COLOR FLOW: SEE BELOW COMMENTS: 1. NORMAL LEFT VENTRICULAR EJECTION FRACTION 50-55% WITH NORMAL WALL MOTION 2. MILD MITRAL REGURGITATION 3. MILD TRICUSPID REGURGITATION 4. GRADE I DIASTOLIC DYSFUNCTION Dictated By: Juan Diego De Leon 06/17/23 FINDINGS: A left upper lobe opacity is without significant change having the appearance of scarring. Minimal additional bilateral pulmonary opacities A 3.3 x 2.4 centimeter soft tissue within the right mediastinum abutting the junction of the left brachiocephalic vein and superior vena cava. (The right mediastinal mass was 2.5 x 2.3 centimeters September 2022 and 1.6 x 1 centimeter December 2022) 1.3 centimeter left hilar lymph node. (The left hilar lymph node was 12 millimeters September 2022 and 7 millimeters December 2022) Small right pleural effusion without significant change. A trace pericardial effusion 08/07/23 Admitted for bradycardia post initiation of bb with entresto. Creatinine at that time 0.98, trop 21. Removed bb from medications, kept on Entresto and added Spironolactone. Pt improved and was discharged home. 10/20/23 Right IJ portacath placed 10/22/23 (today) Cardiorenal failure with elevated troponin and proBNP HFrEF ECHO - EF low between 35-45% heparin drip central line for pressors - levaphed started to maintain a MAP of 65 10/23/23 added Midodrine - able to wean of Levaphed 10/22 later in afternoon avoid nephrotoxins Consult Cardio (Dr. Owen has seen the patient) Consult Nephro(Dr. Van) Started albumin/lasix drip 10/23/23 I&O daily wt Goss A. fib/DVT (large right sided clot burden right upper ext and throughout neck) Heparin drip continues from admission Rate control when pressure supports -Amiodarone started on 10/25/23 evening Hyperkalemia Albuterol 5mg additional dose given, 10/24/23 5.2 - albuterol 12.5mg x1 nebulized monitor and trend 10/24/23 Potassium 5.1, creatinine improved to 1.18 from (4.8-> 4.7 -> 4.47 -> 3.97 -> 2.26) Dyspnea BiPap - alternating with high flow - pt off Bipap most of 10/24/23 evening. replaced to BiPap this am for resp distress. Nebs Metastatic cancer Oncology to follow hold chemo for now Sepsis Vanco Zosyn follow cultures (cultures negative to date 10/23) trend lactate/procal Plan to transfer the pt to higher level of care for possible thrombectomy. Discharge Plan: Transfer - Code Status/Comfort Care Code Status Assessed: Yes (Full) <Tameka Adame - Last Filed: 10/25/23 12:52> - Plan Pt seen and examined. I agree with the note by the POLISHER HAND. Pt is off BIPAP. He is using BIPAP. Will continue midodrine to improve BP. He has DVT in RUE. Will continue heparin drip. Pulm recommended transfer to [place] for clot extraction. They want to see CTA chest before the transfer. We had to diurese the pt before doing CTA chest. He received metolazone. Pt will be able to lay down for the during to the CTA chest while using BIPAP. Cr is improving. Echo shows EF 35 - 45% with moderate pulm htn. Will transfer once accepted. <Erika Garrett - Last Filed: 10/25/23 17:46>
[2023-10-25] MEDS: IPRATROPIUM BROM 0.5MG/2.5ML NEB SCH (14:03)
[2023-10-25] MEDS: METOLAZONE 5 MG TABLET PO SCH (14:07)
--- NOTE | 2023-10-25 15:48 | PN ---
Date of Progress Note: 10/25/2023 Subjective: The patient was admitted to the hospital with acute kidney injury with cardiogenic shock. The patient had acute kidney injury secondary to cardiorenal. The patient was started on Lasix drip. The patient started having good urine output. Physical Examination: Vital Signs: Blood pressure of 139/77, pulse of 95, afebrile. The patient had good urine output of 3300, the patient negative of 800. Chest: Crackles bilateral. Heart: S1, S2, systolic murmur. Abdomen: Soft, nontender. Extremities: Plus edema. Neurologic: Alert, on BiPAP. Laboratory Data: Hemoglobin 11.7. Sodium 136, potassium 5.1, bicarb 36, BUN 61, creatinine down to 1.1, GFR of 69. Calcium 9.6, phosphorus 3.5. Current Medications: The patient on include: 1. Cefepime. 2. Vancomycin. 3. Midodrine. 4. Lasix drip. 5. Amiodarone. Assessment And Plan: 1. Acute kidney injury secondary to cardiorenal, still to me over-volume. I am going to go ahead and increase Lasix drip to 10 mg and we will continue to monitor. 2. Cardiogenic shock, complicated with cardiorenal syndrome, over-volume, on the recovery, over-volume, off pressor. I am going to go ahead and decrease the midodrine to daily and we will follow up, increase the Lasix to 10 mg. 3. Breast cancer. Follow up with primary. 4. Hyperkalemia secondary to renal failure, recovered, resolved. 5. Anasarca. Hypothyroidism has been ruled out. No significant proteinuria. Mostly secondary to cardiorenal. 6. UTI. Continue current antibiotic. 7. Pneumonia. Continue current antibiotic. Time spent examining the patient [id number] reviewing data lab and the radiology placing orders discussing the case with the patient discussing the case with the steam tender including hospitalist and nursing staff more than 55 minutes FRANCES Voice ID: [id number] Report ID: [id number] MTDD
--- NOTE | 2023-10-25 18:42 | RAD REPORT ---
EXAM DESCRIPTION: CT - Chest For Pe Angio - 10/25/2023 6:34 pm CLINICAL HISTORY: Chest pain. r/o PE COMPARISON: <Comparisons> TECHNIQUE: CT angiogram of the pulmonary arteries was performed with MIP. All CT scans are performed using dose optimization technique as appropriate and may include automated exposure control or mA/KV adjustment according to patient size. FINDINGS: No evidence of pulmonary thromboembolism. No acute aortic finding demonstrated. There is a large area of lung consolidation seen inferior right lung. Irregular right lung mass is pr esent measuring 15 mm. Moderate probably loculated right pleural effusion. Trace left pleural effusion. No concerning bony finding. IMPRESSION: No evidence of pulmonary thromboembolism. Intrathoracic abnormality as detailed above.
[2023-10-25] MEDS: ENOXAPARIN 100 MG/ML SYR SQ SCH (21:45)
--- NOTE | 2023-10-25 21:45 | P.PN ---
Subjective Date of Service: 10/25/23 Chief Complaint: Respiratory failure Subjective: Improving (Patient is improving there is no evidence of pulmonary embolism have a right arm DVT vasopressors significant right-sided pleural effusion) Review of Systems General: Weakness Respiratory: Shortness of Breath Physical Examination - Vital Signs Temperature: 96.8 F Blood Pressure: 142/63 Pulse: 99 Respirations: 16 Pulse Ox (%): 95 - Physical Exam General: Alert, Oriented x3 Respiratory: Clear to auscultation bilaterally Cardiovascular: No edema, Regular rate/rhythm, Normal S1 S2 Assessment And Plan - Current Problems (Diagnosis) (1) Pleural effusion Current Visit: Yes Status: Acute Plan: Has a rather large right-sided pleural effusion we will do an ultrasound of the chest to check for loculation and may benefit from a chest tube patient blood cultures are negative he could have have an infected right-sided pleural effusion continue with present doses of antibiotic with general surgery for chest tube (2) DVT of right axillary vein, acute Current Visit: Yes Status: Acute Plan: Patient has DVT of the right arm to Lovenox patient's renal function has improved vital signs are all stable currently on Vapotherm 3 5% FiO2 can titrate FiO2 down
[2023-10-25] MEDS: VANCOMYCIN 1 GM in NA CHLORIDE 0.9% 250 ML IVPB SCH (22:00)
--- NOTE | 2023-10-25 22:27 | RAD REPORT ---
EXAM DESCRIPTION: US - Chest - 10/25/2023 10:19 pm CLINICAL HISTORY: Elevated for loculation COMPARISON: <Comparisons> FINDINGS: Small to moderate right pleural effusion with mild loculation.
[2023-10-26 06:18] LABS: Absolute Basophils 0.1 K/uL (0-0.5); Absolute Eosinophils 0.1 K/uL (0-0.5); Absolute Lymphocytes (CBC) 0.5 K/uL (0.7-4.9); Absolute Monocytes 1.2 K/uL (0.1-1.3); Absolute Neutrophil 9.7 K/uL (1.8-8.0); Basophils % 0.5 % (0-1.3); Eosinophils % 0.5 % (0-4.4); Hematocrit 37.4 % (39.6-49.0); Hemoglobin 12.3 g/dL (13.6-17.9); Lymphocytes % 3.9 % (15.3-44.8); MCH 32.6 pg (27.0-35.0); MCHC 32.8 g/dL (32.0-36.0); MCV 99.4 fL (80-100); MPV 7.9 fL (7.6-11.3); Monocytes % 10.8 % (3.3-12.3); Neutrophils % 84.3 % (41.7-73.7); Nucleated Red Blood Cells % 0.1 % (0-0); Platelets 325 thou/uL (152-406); RBC Red Blood Cell Count 3.76 M/uL (4.33-5.43); Red Cell Distribution Width 16.9 % (12.1-15.2)
[2023-10-26 06:31] LABS: Albumin 2.9 g/dL (3.4-5.0); Albumin/Globulin Ratio 0.7 (1.1-1.8); Anion Gap 4.1 mEq/L (5.0-15.0); Bilirubin Total 0.5 mg/dL (0.2-1.0); Globulin 3.9 g/dL (2.3-3.5); Potassium 4.1 mEq/L (3.5-5.1); Protein, Total 6.8 g/dL (6.4-8.2)
[2023-10-26] MEDS ORDERED: DIPHENHYDRAMINE 50 MG/ML VIAL IV PRN (07:29)
[2023-10-26] MEDS: HEPARIN/D5W 25,000 UNIT/500 ML BAG IV SCH (08:18)
[2023-10-26] MEDS: MIDODRINE HCL 5 MG TABLET PO SCH (09:00)
--- NOTE | 2023-10-26 09:36 | RAD REPORT ---
EXAM DESCRIPTION: RADChest Single View10/26/2023 5:50 am CLINICAL HISTORY: Will effusion COMPARISON: Chest Single View dated 10/25/2023; Chest Single View dated 10/24/2023; Chest Single View da arielle 10/22/2023; Chest Single View dated 10/22/2023 TECHNIQUE: Portable AP view of the chest. FINDINGS: Left IJ CVC, and right IJ Port-A-Cath, are stable in position. Stable moderate right layer ing effusion with underlying airspace opacification. Cardiomegaly and central interstitial prominence on the left are also stable. No new focal airspace opacities. No pneumothorax or left-sided effusio n. The mediastinal contours are otherwise unremarkable. IMPRESSION: Stable findings as above.
[2023-10-26] MEDS: VANCOMYCIN 1.5 GM in NA CHLORIDE 0.9% 500 ML IVPB SCH (10:47)
--- NOTE | 2023-10-26 12:49 | PN ---
Date of Progress Note: 10/26/2023 Subjective: The patient was admitted with respiratory failure, acute kidney injury secondary to card iorenal, vez-OS-ciccltkjx OK. Patient was started on Lasix drip. Patient had been responding very w ell. Yesterday, we had to increase the Lasix drip, give him metolazone. The patient had good urine output. The patient put out almost 7 L. The patient status post CT with contrast for PE was negativ e. Objective: Vital Signs: Blood pressure 142/77, pulse of 89, afebrile. The patient's urine output o f 7 L, negative of 5 L. Chest: Decreased entry on the right base. Crackles, bilateral, on the left. Heart: S1, S2. Systolic murmur. Abdomen: Soft, nontender. Extremities: Plus edema, more prominent on the right upper arm. Laboratory Data: WBC 11.5, hemoglobin 12.3, sodium 137, potassium 4.1, bicarb 43, BUN 50, creatinine down to 1, calcium 10.6, albumin 2.9. Current Medications: The patient on, it includes cefepime, vancomycin, promethazine, midodrine, hepa rin, Lasix with albumin, amiodarone, fentanyl. Assessment And Plan: 1.Acute kidney injury secondary to cardiorenal. The patient started to have a little bit more alkal osis with questionable of being slightly on the dry side. I am going to continue current Lasix drip. If urine output has been increased more than 300 per hour, we will consider decreasing back to 5 mg . Discontinue midodrine. We are not going to give any metolazone today and we will follow up. 2.Hypertension, controlled, optimal. Status post cardiogenic shock, recovered, off pressor. Discon tinue midodrine. 3.Cardiogenic shock secondary to [id number] myocardial infarction complicated with acute kidne y injury secondary to poor perfusion acute tubular necrosis, overvolume. Continue diuresis as above. 4.Pleural effusion, localized on the right side. We will follow up with Pulmonary. 5.Respiratory failure, multifactorial, secondary to pneumonia, lung mass/overvolume. We are going t o continue diuresis as above. Follow up with the Pulmonary and Primary. Continue antibiotic. EMILIANO/MODL Voice ID: [id number] Report ID: [id number]
--- NOTE | 2023-10-26 14:40 | P.PN ---
Subjective Date of Service: 10/26/23 Chief Complaint: Respiratory failure Subjective: No new changes (Pt was given one dose of metolazone to add to lasix/albumin drip to attempt getting pt flat enough for CTA to r/o PE) <Tameka Adame Juan J - Last Filed: 10/26/23 14:35> Date of Service: 10/27/23 <Erika Garrett Amita - Last Filed: 10/27/23 09:07> Review of Systems 10-point ROS is otherwise unremarkable General: Weakness, Malaise Respiratory: SOB with Excertion Cardiovascular: Other Neurological: Other (fatigue) <Tameka Adame Juan J - Last Filed: 10/26/23 14:35> Physical Examination - Vital Signs Temperature: 97.2 F Blood Pressure: 131/89 Pulse: 89 Respirations: 16 Pulse Ox (%): 98 - Physical Exam General: Cooperative, Other (sedate/fatigued) HEENT: Atraumatic, Normocephalic Neck: Supple, No Thyromegaly Respiratory: Diminished, Crackles/rales (bases), Other (significantly less work of breathing, on BiPap, said to have stayed off most of pm) Cardiovascular: Normal pulses, Other (right arm edema, lymphedema +dvt, mass compressing brachiocephalic) Capillary refill: <2 Seconds Gastrointestinal: Normal bowel sounds Musculoskeletal: No clubbing Integumentary: No rashes Neurological: Other (more fatigue today) Lymphatics: Axilla lymphadenopathy Urinary: Goss catheter External genitalia: Deferred Rectal: Deferred <Tameka Adame Juan J - Last Filed: 10/26/23 14:35> Assessment And Plan - Plan 09/11/20 IMMUNOHISTOCHEMISTRY/SPECIAL STAIN SUMMARY: The results of immunohistochemical studies and/or special stains are as follows: Estrogen Positive Progesterone Positive HER2 Negative PSA Negative RACHEAL-3 - Positive 11/08/21 IMPRESSION: Soft tissue lobulated mass along the left superior mediastinal fat is again seen and highly FDG avid. This is likely fractionally reduced in size but remains significant and intensity of FDG uptake. Metastatic hypermetabolic lymphadenopathy is seen in the right paratracheal region, AP window and left hilar region. Pathologic metastatic FDG activity seen in manubrium of the sternum and body of the sternum with significant sclerosis. Left anterior first through fourth ribs also involved. 07/26/23 2 DIMENSIONAL ASSESSMENT: RIGHT ATRIUM: NORMAL LEFT ATRIUM: NORMAL RIGHT VENTRICLE: NORMAL LEFT VENTRICLE: NORMAL TRICUSPID VALVE: MILD TRICUSPID REGURGITATION MITRAL VALVE: MILD MITRAL REGURGITATION PULMONIC VALVE: NORMAL AORTIC VALVE: NORMAL PERICARDIAL EFFUSION: NONE AORTIC ROOT: NORMAL LEFT VENTRICULAR WALL MOTION: NORMAL DOPPLER/COLOR FLOW: SEE BELOW COMMENTS: 1. NORMAL LEFT VENTRICULAR EJECTION FRACTION 50-55% WITH NORMAL WALL MOTION 2. MILD MITRAL REGURGITATION 3. MILD TRICUSPID REGURGITATION 4. GRADE I DIASTOLIC DYSFUNCTION Dictated By: Juan Diego De Leon 06/17/23 FINDINGS: A left upper lobe opacity is without significant change having the appearance of scarring. Minimal additional bilateral pulmonary opacities A 3.3 x 2.4 centimeter soft tissue within the right mediastinum abutting the junction of the left brachiocephalic vein and superior vena cava. (The right mediastinal mass was 2.5 x 2.3 centimeters September 2022 and 1.6 x 1 centimeter December 2022) 1.3 centimeter left hilar lymph node. (The left hilar lymph node was 12 millimeters September 2022 and 7 millimeters December 2022) Small right pleural effusion without significant change. A trace pericardial effusion 08/07/23 Admitted for bradycardia post initiation of bb with entresto. Creatinine at that time 0.98, trop 21. Removed bb from medications, kept on Entresto and added Spironolactone. Pt improved and was discharged home. 10/20/23 Right IJ portacath placed 10/22/23 (today) Cardiorenal failure with elevated troponin and proBNP HFrEF ECHO - EF low between 35-45% heparin drip central line for pressors - levaphed started to maintain a MAP of 65 10/23/23 added Midodrine - able to wean of Levaphed 10/22 later in afternoon avoid nephrotoxins Consult Cardio (Dr. Owen has seen the patient) Consult Nephro(Dr. Van) Started albumin/lasix drip 10/23/23, adjusted upward to 10ml/hr (large volume diuresis) 7L documented yest, 4L today I&O daily wt Goss A. fib/DVT (large right sided clot burden right upper ext and throughout neck) Heparin drip continues from admission Rate control when pressure supports -Amiodarone started on 10/25/23 evening, remains in rate controlled fib in the 90s Hyperkalemia Albuterol 5mg additional dose given, 10/24/23 5.2 - albuterol 12.5mg x1 nebulized monitor and trend 10/24/23 Potassium 5.1, creatinine improved to 1.18 from (4.8-> 4.7 -> 4.47 -> 3.97 -> 2.26) 10/26/23 potassium 4.1, creatinine 1.02, GFR 82, BUN 50 Dyspnea BiPap - alternating with high flow - pt off Bipap most of 10/24/23 evening. replaced to BiPap this am for resp distress. [facility] Metastatic cancer Oncology to follow hold chemo for now pt has loculated right pleural effusion, CTA negative for PE (clots to right arm/neck remain), Dr. Ribeiro consulted general surgery for Chest tube. Loculated area usually requires transfer. US performed with "small amount of loculation", IR consulted for thoracentesis for large pleural drainage in am. Pt will need to be NPO post MN and Heparin paused for at least 4 hours prior to procedure. Sepsis Vanco continues Cefepime continues follow cultures (cultures negative to date 10/23) trend lactate/procal Plan to transfer the pt to higher level of care for possible thrombectomy/transfer help per pulmonology. Will try thoracentesis tomorrow 10/26/23 <Tameka Adame - Last Filed: 10/26/23 14:35> - Plan Pt seen and examined. I agree with the note by the METAL ENGINEERING PROCESS WORKER. Pt is off BIPAP. He is using HFNC. Will continue midodrine to improve BP. He has DVT in RUE. Will continue heparin drip. CTA PE is negative for PE. Will cancel the transfer order. We consulted IR for thoracentesis. He has small loculated pleural effusion. No need for chest tube placement per gen surgeon. Echo shows EF 35 - 45% with moderate pulm htn. <Erika Garrett - Last Filed: 10/27/23 09:07>
--- NOTE | 2023-10-26 20:56 | PN ---
Date of Progress Note: 10/26/2023 Subjective: Seen by bedside. Doing much better. Creatinine has normalized. He has AFib, still in AFib with amiodarone, but he definitely did not convert yet to sinus rhythm. He has severe systolic heart failure and he is much more comfortable now. No significant orthopnea. Uses BiPAP p.r.n. slee p. Review of Systems: Shortness of breath and lower extremity edema. No nausea, vomiting, or diarrhea. No abdominal pain. All other systems were reviewed, they were negative. Objective: Vital Signs: Reviewed. Head and Neck: Pupils are equal, reactive to light. Intact eye movements. No JVD. No cervical lym phadenopathy. Neck is supple. Thyroid is not enlarged. Lungs: Clear to auscultation bilaterally. No rhonchi, wheezing, or crackles. No accessory muscle u se. Heart: Irregularly irregular. No extra sounds. Abdomen: Soft, nontender. Bowel sounds positive. No organomegaly. No masses or hernia. No rigidi ty or rebound. Extremities: No clubbing or cyanosis. Trace edema. Neurologic: Alert, awake, oriented x3. No acute focal deficits appreciated. Investigations: His hemoglobin is 12.3 and BUN is 50, creatinine is 1.02, and carbon dioxide is 43. Assessment And Recommendations: 1.Acute on chronic systolic heart failure exacerbation. Appears to be euvolemic now. Continue to m onitor BUN, creatinine, electrolytes. Low-salt diet. 2.Atrial fibrillation with rapid ventricular response initially, now heart rate is controlled. Swit ch amiodarone to 200 mg twice a day and put him on Eliquis 5 mg twice a day and plan for JOHN cardiove rsion in this hospital stay. 3.Pleural effusion and this is set up for thoracentesis tomorrow. We will plan for JOHN cardioversio n to be done after that as he is going to need to be on anticoagulation. 4.Acute renal failure, resolved. 5.Elevated troponin. No chest pain, it is likely demand. SR/MODL Voice ID: [id number] Report ID: [id number]
[2023-10-26] MEDS: AMIODARONE HCL 200 MG TAB PO SCH (22:03)
[2023-10-27 06:22] LABS: Absolute Eosinophils 0.1 K/uL (0-0.5); Absolute Lymphocytes (CBC) 0.6 K/uL (0.7-4.9); Absolute Monocytes 1.4 K/uL (0.1-1.3); Absolute Neutrophil 9.1 K/uL (1.8-8.0); Basophils % 0.2 % (0-1.3); Eosinophils % 0.8 % (0-4.4); Hematocrit 37.5 % (39.6-49.0); Hemoglobin 12.3 g/dL (13.6-17.9); MCH 32.5 pg (27.0-35.0); MCHC 32.9 g/dL (32.0-36.0); MCV 98.9 fL (80-100); MPV 7.7 fL (7.6-11.3); Monocytes % 12.5 % (3.3-12.3); Neutrophils % 81.5 % (41.7-73.7); Nucleated Red Blood Cells % 0.1 % (0-0); Platelets 322 thou/uL (152-406); RBC Red Blood Cell Count 3.79 M/uL (4.33-5.43); Red Cell Distribution Width 16.8 % (12.1-15.2)
[2023-10-27 06:57] LABS: ALT/SGPT 33 U/L (16-61); AST/SGOT 53 U/L (15-37); Albumin 3.1 g/dL (3.4-5.0); Albumin/Globulin Ratio 0.8 (1.1-1.8); Alkaline Phosphatase 87 U/L (45-117); Anion Gap 4.7 mEq/L (5.0-15.0); BUN Blood Urea Nitrogen 52 mg/dL (7-18); Bicarbonate > 45 mEq/L (21-32); Bilirubin Total 0.7 mg/dL (0.2-1.0); Globulin 3.7 g/dL (2.3-3.5); Glomerular Filtration Rate 77 ml/min (=/>90); Glucose Level 102 mg/dL (74-106); Potassium 3.7 mEq/L (3.5-5.1); Protein, Total 6.8 g/dL (6.4-8.2); Sodium Level 134 mEq/L (136-145)
[2023-10-27] MEDS: KCL 20 MEQ/100 mL IVPB 20 MEQ/100 ML BAG IV SCH (08:18)
[2023-10-27 08:22] LABS: PT Prothrombin Time 13.3 SECONDS (9.4-12.5); PTT, Activated Partial Thromb 29.7 SECONDS (24.3-36.9); Protime INR 1.19
[2023-10-27] MEDS: Magnesium Sulfate 2gm IVPB 2 G/50 ML BAG IV SCH (08:34)
--- NOTE | 2023-10-27 10:42 | RAD REPORT ---
EXAM DESCRIPTION: RADChest Single View10/27/2023 10:03 am CLINICAL HISTORY: Status Post Thorocentesis COMPARISON: Chest Single View dated 10/26/2023; Chest Single View dated 10/25/2023; Chest Single View da arielle 10/24/2023; Chest Single View dated 10/22/2023 TECHNIQUE: Portable AP view of the chest. FINDINGS: No pneumothorax is appreciated. Left IJ CVC and right IJ Port-A-Cath in place. Mild interv al decrease in size of the right pleural effusion with the residual sizable subpulmonic component. Un derlying airspace opacification. No pneumothorax. The cardiomediastinal contours are unchanged with stable cardiomegaly. IMPRESSION: Mild interval decrease in size of the right pleural effusion. No pneumothorax. Other sta ble findings as above.
--- NOTE | 2023-10-27 11:15 | P.PN ---
Subjective Date of Service: 10/27/23 Chief Complaint: Respiratory failure Subjective: No new changes, No C/O voiced, Tolerating diet, Ambulating, Improving Review of Systems 10-point ROS is otherwise unremarkable Physical Examination - Vital Signs Temperature: 98.0 F Blood Pressure: 116/76 Pulse: 102 Respirations: 95 Pulse Ox (%): 93 - Physical Exam General: Alert, In no apparent distress HEENT: Atraumatic, PERRLA, EOMI Neck: Supple, JVD not distended Respiratory: Clear to auscultation bilaterally, Normal air movement Cardiovascular: Regular rate/rhythm, Normal S1 S2 Gastrointestinal: Normal bowel sounds, No tenderness Musculoskeletal: No tenderness Integumentary: No rashes Neurological: Normal speech, Normal tone, Normal affect Lymphatics: No axilla or inguinal lymphadenopathy - Studies Microbiology Data (last 24 hrs): 10/22/23 09:40 Blood - Blood Aerobic Blood Culture - Final No growth in 5 days. 10/22/23 09:40 Blood - Blood Anaerobic Blood Culture - Final No growth in 5 days. 10/22/23 09:48 Blood - Blood Aerobic Blood Culture - Final No growth in 5 days. 10/22/23 09:48 Blood - Blood Anaerobic Blood Culture - Final No growth in 5 days. Medications List Reviewed: Yes Assessment And Plan - Current Problems (Diagnosis) (1) Acute on chronic combined systolic and diastolic heart failure Current Visit: Yes Status: Acute Plan: Patient looks better, breathing better and lower extremity edema improved. Lower lasix drip to 5 mg/hr monitor input and output monitor and correct electrolytes. (2) Shock Current Visit: Yes Status: Acute Plan: improved, off pressors. (3) Atrial fibrillation Current Visit: Yes Status: Acute Plan: plan for JOHN DCCV in am start eliquis 5 mg po BID tonight continue Amiodarone 200 mg po BID
--- NOTE | 2023-10-27 11:39 | RAD REPORT ---
EXAM DESCRIPTION: US - Thoracentesis w/ US Guide - 10/27/2023 9:35 am CLINICAL HISTORY: cardiorenal failure COMPARISON: No comparisons FINDINGS: Preoperative diagnosis: Right pleural effusion Post operative diagnosis: Same Conscious Sedation: None. Estimated blood loss: Minimal Specimens:A small volume of fluid was sent for requested lab studies. Informed consent was obtained following discussion of the risks and benefits with the patient. The pa tient was placed in the upright recumbent position and the right upper back was prepped and draped in the usual sterile fashion. 1% Lidocaine was infiltrated into the soft tissues for local anesthesia. Under sonographic guidance, a thoracentesis needle and 6 Arabic catheter was advanced into the righ t pleural space. Drainage of mildly cloudy right pleural fluid was obtained. [facility] The patient tolerated the procedure without immediate complication and transferred to the floor in stable condition. IMPRESSION: Successful ultrasound-guided right thoracentesis as detailed.
[2023-10-27 12:16] LABS: Body Fluid Source PLEURAL
[2023-10-27 12:17] LABS: Appearance TURBID (CLEAR); Body Fluid Lymphocytes 0 %; Body Fluid WBC 7025 /mm^3; Color of fluid Yellow (COLORLESS); Fluid Total Cells Count 100
--- NOTE | 2023-10-27 12:53 | P.PN ---
Subjective Date of Service: 10/27/23 Chief Complaint: Respiratory failure Subjective: Improving (Patient is doing much better this post thoracentesis) Review of Systems General: Weakness Respiratory: Shortness of Breath Physical Examination - Vital Signs Temperature: 97.6 F Blood Pressure: 119/74 Pulse: 105 Respirations: 26 Pulse Ox (%): 96 - Physical Exam General: Alert, Oriented x3 Neck: Supple Respiratory: Diminished (Diminished on the right side) Cardiovascular: No edema, Regular rate/rhythm - Studies Microbiology Data (last 24 hrs): 10/22/23 09:40 Blood - Blood Aerobic Blood Culture - Final No growth in 5 days. 10/22/23 09:40 Blood - Blood Anaerobic Blood Culture - Final No growth in 5 days. 10/22/23 09:48 Blood - Blood Aerobic Blood Culture - Final No growth in 5 days. 10/22/23 09:48 Blood - Blood Anaerobic Blood Culture - Final No growth in 5 days. Medications List Reviewed: Yes Assessment And Plan - Current Problems (Diagnosis) (1) Pleural effusion Current Visit: Yes Status: Acute Plan: Patient is s/p thoracentesis discussed with radiology most likely subpulmonic pleural effusion he is doing well currently stable vital signs all stable cultures so far negative DC antibiotics for now no evidence of a pleural infection there is are also negative 100% mononuclear cells in the pleural fluid most likely some malignant effusion awaiting cytology discharge planning (2) DVT of right axillary vein, acute Current Visit: Yes Status: Acute Plan: No evidence of PE we will plan to start him on Eliquis today
[2023-10-27 16:43] LABS: ALT/SGPT 43 U/L (16-61); AST/SGOT 62 U/L (15-37); Albumin 2.8 g/dL (3.4-5.0); Albumin/Globulin Ratio 0.8 (1.1-1.8); Alkaline Phosphatase 85 U/L (45-117); Anion Gap 4.8 mEq/L (5.0-15.0); BUN Blood Urea Nitrogen 57 mg/dL (7-18); Bilirubin Total 0.6 mg/dL (0.2-1.0); Globulin 3.6 g/dL (2.3-3.5); Glomerular Filtration Rate 59 ml/min (=/>90); Glucose Level 122 mg/dL (74-106); Potassium 3.8 mEq/L (3.5-5.1); Protein, Total 6.4 g/dL (6.4-8.2); Sodium Level 134 mEq/L (136-145)
[2023-10-27 16:44] LABS: Bicarbonate > 45 mEq/L (21-32)
--- NOTE | 2023-10-27 20:20 | PN ---
Date of Progress Note: 10/27/2023 Chief Complaint: Respiratory failure, acute on chronic kidney injury. History Of Present Illness: The patient was admitted to ICU. Nephrology consultation was requested for elevated BUN and creatinine level. 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 Urine output remains nonoliguric. T he patient was started on Lasix drip. Also, he was treated with aggressive diuretic therapy and he r eceived metolazone for congestive heart failure, cardiorenal syndrome with superimposed respiratory f ailure. The patient is on Lasix drip and albumin drip. Urine output has increased adequately. The patient had a CT scan with contrast to rule out PE, which was negative. Review of Systems: Denies chest pain, palpitations. Physical Examination: Lungs: Crackles bilaterally. Heart: S1, S2. Abdomen: Soft. Extremities: Edema present. Laboratory Work: Showed BUN 50, creatinine 1.2, calcium 10.6, albumin 2.9. Sodium 137, potassium 4. 1. Today, blood work shows sodium 134, potassium 3.7, chloride 88, carbon dioxide over 45, BUN 52, c reatinine 1.07, glucose 102, albumin 3.1, calcium 10.0, phosphorus 3.0, magnesium 1.4. Impression And Plan: 1.Acute on chronic kidney injury. The patient underwent thoracentesis today for pleural effusion. The patient remains on bicarbonate drip and dose will be titrated down. The patient has metabolic al kalosis secondary to diuretic therapy and contraction alkalosis currently is managed with Lasix dose titration as well as potassium replacement. Plan is to re-evaluate lab work in the afternoon. 2.Cardiogenic shock secondary to svm-GC-toexoceul myocardial infarction complicated with acute kidne y injury secondary to cardiorenal syndrome and underlying acute tubular necrosis. The patient has fl uid overload and diuretic will be maintained with lower dose. The patient may benefit from Diamox as well. 3.Respiratory failure, multifactorial secondary to pneumonia, lung mass, fluid overload, and decompe nsated congestive heart failure. The patient was on BiPAP and the patient is followed by Pulmonary. ABG was done. Continue antibiotics. 4.Hypertension, control optimal. The patient had a cardiogenic shock recovered, currently off press or and midodrine was stopped. EB/MODL Voice ID: [id number] Report ID: [id number]
[2023-10-27] MEDS: APIXABAN 5 MG TABLET PO SCH (21:04)
[2023-10-27] MEDS: POTASSIUM CL SA 10 MEQ TAB PO ONE (21:04)
[2023-10-27] MEDS: GUAIFENESIN 600 MG SA TAB PO SCH (21:04)
[2023-10-28] MEDS ORDERED: ALBUMIN HUMAN 25% 12.5 GM, FUROSEMIDE 100 MG in NA CHLORIDE 0.9% 40 ML IV SCH ×2 (01:00→03:00)
[2023-10-28 05:58] LABS: Potassium 3.8 mEq/L (3.5-5.1)
[2023-10-28 05:59] LABS: Absolute Eosinophils 0.1 K/uL (0-0.5); Absolute Lymphocytes (CBC) 0.5 K/uL (0.7-4.9); Absolute Monocytes 1.5 K/uL (0.1-1.3); Absolute Neutrophil 12.6 K/uL (1.8-8.0); Basophils % 0.2 % (0-1.3); Eosinophils % 0.7 % (0-4.4); Hematocrit 37.1 % (39.6-49.0); Hemoglobin 12.3 g/dL (13.6-17.9); Lymphocytes % 3.6 % (15.3-44.8); MCH 32.8 pg (27.0-35.0); MCHC 33.2 g/dL (32.0-36.0); MCV 98.8 fL (80-100); MPV 8.2 fL (7.6-11.3); Neutrophils % 85.5 % (41.7-73.7); Platelets 292 thou/uL (152-406); RBC Red Blood Cell Count 3.75 M/uL (4.33-5.43); Red Cell Distribution Width 16.9 % (12.1-15.2)
[2023-10-28 07:03] LABS: Albumin 2.7 g/dL (3.4-5.0); Anion Gap 3.8 mEq/L (5.0-15.0)
[2023-10-28 08:01] LABS: Differential Total Cells Count 100; Lymphocytes 10 % (15-42); Monocytes 8 % (0-10); Segmented Neutrophils 82 % (40-80)
[2023-10-28 08:02] LABS: Blood Morphology Comment NOT SEEN (NOT SEEN); Platelet Estimate ADEQ; Platelets Clumped FEW
[2023-10-28] MEDS: acetaZOLAMIDE 250 MG TAB PO SCH (08:31)
[2023-10-28] MEDS: METOPROLOL XL 25 MG TAB PO SCH (11:11)
--- NOTE | 2023-10-28 11:16 | P.PN ---
Subjective Date of Service: 10/28/23 Chief Complaint: Respiratory failure Subjective: No new changes, No C/O voiced, Tolerating diet, Ambulating, Improving Review of Systems 10-point ROS is otherwise unremarkable Physical Examination - Vital Signs Temperature: 97 F Blood Pressure: 137/75 Pulse: 104 Respirations: 18 Pulse Ox (%): 97 - Physical Exam General: Alert, In no apparent distress HEENT: Atraumatic, PERRLA, EOMI Neck: Supple, JVD not distended Respiratory: Clear to auscultation bilaterally, Normal air movement Cardiovascular: Regular rate/rhythm, Normal S1 S2 Gastrointestinal: Normal bowel sounds, No tenderness Musculoskeletal: No tenderness Integumentary: No rashes Neurological: Normal speech, Normal tone, Normal affect Lymphatics: No axilla or inguinal lymphadenopathy - Studies Microbiology Data (last 24 hrs): 10/22/23 09:40 Blood - Blood Aerobic Blood Culture - Final No growth in 5 days. 10/22/23 09:40 Blood - Blood Anaerobic Blood Culture - Final No growth in 5 days. 10/22/23 09:48 Blood - Blood Aerobic Blood Culture - Final No growth in 5 days. 10/22/23 09:48 Blood - Blood Anaerobic Blood Culture - Final No growth in 5 days. Medications List Reviewed: Yes Assessment And Plan - Current Problems (Diagnosis) (1) Acute on chronic combined systolic and diastolic heart failure Current Visit: Yes Status: Acute Plan: Patient looks better, breathing better and lower extremity edema improved. Lasix D/C due to contraction alkalosis agree on diamox Start Entresto 24/27 mg po BID monitor input and output monitor and correct electrolytes. (2) Shock Current Visit: Yes Status: Acute Plan: improved, off pressors. (3) Atrial fibrillation Current Visit: Yes Status: Acute Plan: Patient converted to sinus rhythm, with PVCs continue eliquis 5 mg po BID continue Amiodarone 200 mg po BID start Lopressor 12.5 mg po BID
--- NOTE | 2023-10-28 11:46 | RAD REPORT ---
EXAM DESCRIPTION: RAD - Chest Single View - 10/28/2023 11:37 am CLINICAL HISTORY: lung eval. Chest pain. COMPARISON: Chest Single View dated 10/27/2023; Chest Single View dated 10/26/2023; Chest Single View da arielle 10/25/2023; Chest Single View dated 10/24/2023 FINDINGS: Portable technique limits examination quality. Since the 10/27/2023 prior study, little overall change is seen in the mild bilateral pulmonary opaci ties. Moderate right pleural effusion is unchanged. The heart is mildly enlarged in size. No displace d fractures.Catheter tubing is unchanged. IMPRESSION: Stable chest since yesterday's examination.
--- NOTE | 2023-10-28 12:12 | P.PN ---
Subjective Date of Service: 10/28/23 Chief Complaint: Respiratory failure Subjective: Improving (Patient is doing much better postthoracentesis) Review of Systems General: Weakness Respiratory: Shortness of Breath Physical Examination - Vital Signs Temperature: 97 F Blood Pressure: 137/75 Pulse: 104 Respirations: 18 Pulse Ox (%): 97 - Physical Exam General: Alert, Oriented x3 Respiratory: Clear to auscultation bilaterally, Diminished (Right side) Cardiovascular: No edema, Regular rate/rhythm, Normal S1 S2 - Studies Microbiology Data (last 24 hrs): 10/22/23 09:40 Blood - Blood Aerobic Blood Culture - Final No growth in 5 days. 10/22/23 09:40 Blood - Blood Anaerobic Blood Culture - Final No growth in 5 days. 10/22/23 09:48 Blood - Blood Aerobic Blood Culture - Final No growth in 5 days. 10/22/23 09:48 Blood - Blood Anaerobic Blood Culture - Final No growth in 5 days. Medications List Reviewed: Yes Assessment And Plan - Current Problems (Diagnosis) (1) Pleural effusion Current Visit: Yes Status: Acute Plan: Right side appears to be stable. Cultures so far negative no evidence of pleural fluid infection (2) DVT of right axillary vein, acute Current Visit: Yes Status: Acute Plan: No evidence of PE we will plan to start him on Eliquis today discharge planning
[2023-10-28] MEDS: POTASSIUM CL SA 10 MEQ TAB PO SCH (13:36)
--- NOTE | 2023-10-28 16:32 | PN ---
Date of Progress Note: 10/28/2023 Subjective: The patient was admitted with acute kidney injury secondary to cardiorenal, cardiorenal shock, [id number] PA. The patient was started on diuresis. The patient responded very well. The patient weaned from diuresis. The patient currently on nasal cannula, resting well. Physical Examination: Vital Signs: Blood pressure 137/75, pulse of 104, afebrile. The patient still had good urine output of 5 L, negative of 2500. Chest: Clear to auscultation. Heart: S1, S2. Systolic murmur. Abdomen: Soft, nontender. Extremities: Trace edema. Neurologic: Alert. No focality. Laboratory Data: Hemoglobin 12.3. Sodium 133, potassium 3.8, bicarb 44, trending down, BUN 61, crea tinine down to 1.3, GFR 61. Calcium 9.5, phosphorus 3. Albumin 2.7. Corrected calcium 10.4. Current Medications: The patient on include promethazine, Eliquis, amiodarone 200 b.i.d., Entresto, metoprolol b.i.d., acetazolamide, fentanyl. Assessment And Plan: 1.Acute kidney injury secondary to cardiorenal, poor perfusion, ATN secondary to cardiogenic shock. Continues to improve. Looked to me currently normal volume. I am going to continue to hold the diu resis for the time being and we will monitor the patient. I agree with Entresto for the time being. 2.We will consider adding spironolactone tomorrow if kidney function continues to be stable. 3.Hyponatremia secondary to dilutional. Continue Diamox. 4.Hypokalemia. We will supplement. 5.Cardiogenic shock secondary to [id number] PA with congestive heart failure and exacerbation complicated with acute kidney injury, on recovery, normal volume. We will repeat chest x-ray. Then we will decide about adjusting the diuresis further depending on that. For the time being, continue Diamox. Keep holding Lasix for the time being. Continue followup with Cardiology. Continue Entrest o. We will consider spironolactone. 6.Hypokalemia, we will supplement. We will consider spironolactone. FRANCES Voice ID: [id number] Report ID: [id number]
--- NOTE | 2023-10-28 17:06 | EKG ---
Test Date: 2023-10-28 Test Time: 08:13:25 Humanities Coordinator: RASHAAD MEASUREMENT RESULTS: Intervals: Rate: 92 AR: 160 QRSD: 88 QT: 360 QTc: 445 [place]: P: 21 AR: 160 QRS: 30 T: 33 INTERPRETIVE STATEMENTS: Sinus rhythm with frequent premature ventricular complexes in a pattern of bigeminy Otherwise normal ECG Compared to ECG 10/28/2023 08:12:07 Fusion complex(es) no longer present Electronically Signed On 10-28-23 17:04:30 CDT by Juan Diego De Leon
[2023-10-28] MEDS: SACUBITRIL/VALSARTAN 24/26 MG TAB PO SCH (20:38)
--- NOTE | 2023-10-29 02:45 | P.PN ---
Subjective Date of Service: 10/28/23 Subjective: No C/O voiced, Improving, Doing well Review of Systems 10-point ROS is otherwise unremarkable Physical Examination - Vital Signs Temperature: 97.3 F Blood Pressure: 132/71 Pulse: 88 Respirations: 16 Pulse Ox (%): 94 - Physical Exam General: Alert, In no apparent distress, Oriented x3 Respiratory: Clear to auscultation bilaterally, Normal air movement Cardiovascular: Regular rate/rhythm, Normal S1 S2, Systolic murmur Gastrointestinal: Normal bowel sounds, Soft and benign, Non-distended, No tenderness Musculoskeletal: No clubbing, No tenderness, Swelling Neurological: Sensation intact, Cranial nerves 3-12 intact - Studies Imagings Data: Echocardiogram COMMENTS: 1. SIGNIFICANT VARIATION OF LEFT VENTRICULAR FUNCTION DUE TO ARRHYTHMIA, IN GENERAL MODERATE HYPOKINESIS (EJECTION FRACTION VARIATES BETWEEN 35-45%) 2. DILATED RIGHT VENTRICLE WITH FLATTENED SEPTUM (PRESSURE/ VOLUME OVERLOAD) 3. RIGHT VENTRICULAR FUCNTION MILD REDUCED 4. MILD TRICUSPID REGURGITATION 5. MODERATE PULMONARY HYPERTENSION (RIGHT VENTRICULAR SYSTOLIC PRESSURE 40-45 mmHg) 6. SMALL CIRCUMFERENTIAL PERICARDIAL EFFUSION 7. ELEVATED FILLING PRESSURE (RIGHT ATRIUM 15-20 mmHg) Venous Doppler Acute appearing thrombosis of the subclavian, internal jugular, and axillary veins Medications List Reviewed: Yes Assessment & Plan - Problems (Diagnosis) (1) Acute on chronic combined systolic and diastolic heart failure Current Visit: Yes Status: Acute (2) Atrial fibrillation Current Visit: Yes Status: Acute (3) Pulmonary embolism Current Visit: Yes Status: Acute Qualifiers: Acute cor pulmonale presence: with acute cor pulmonale (4) Abnormal CT scan Current Visit: No Status: Acute (5) Asymptomatic LV dysfunction Current Visit: No Status: Acute (6) Elevated troponin Current Visit: No Status: Acute (7) History of breast cancer Current Visit: No Status: Chronic (8) History of prostate cancer Current Visit: No Status: Chronic (9) Hypercapnic respiratory failure Current Visit: Yes Status: Acute (10) Metabolic alkalosis Current Visit: Yes Status: Acute - Plan Plan: 1. Patient with heart failure with reduced ejection fraction and the patient with a history of atrial fibrillation and pulmonary embolism; patient with right-sided heart failure with septal flattening and elevated right ventricular pressures; continue with diuresing and medication for rate control along with anticoagulation. Will need to continue monitoring cardiac status closely. Echocardiogram is pending. Monitor I's and O's as well. Monitor pulmonary status closely. Patient will be admitted to the hospital for further evaluation. 2. Patient with breast and prostate cancer; outpatient chemotherapy. 3. Leukocytosis; cultures pending. No evidence of infection at this time. Continue monitoring for infectious source. Patient is currently off antibiotics. 4. Hyponatremia; monitor sodium level closely 5. Patient with hypercapnic respiratory failure with compensatory metabolic alkalosis; CPAP or BiPAP at night. Monitor bicarb levels. May need to gently hydrate as patient looks to be over diuresed. 6. GI and DVT prophylaxis Discharge Plan: Home Plan to discharge in: Greater than 2 days - Advance Directives Does patient have a Living Will: No Does patient have a Durable POA for Healthcare: No - Code Status/Comfort Care Code Status Assessed: Yes Code Status: Full Code Critical Care: No Time Spent Managing PTS Care (In Minutes): 45
[2023-10-29 05:20] LABS: Absolute Eosinophils 0.2 K/uL (0-0.5); Absolute Lymphocytes (CBC) 0.6 K/uL (0.7-4.9); Absolute Monocytes 1.8 K/uL (0.1-1.3); Absolute Neutrophil 15.5 K/uL (1.8-8.0); Basophils % 0.3 % (0-1.3); Hematocrit 36.2 % (39.6-49.0); Hemoglobin 11.8 g/dL (13.6-17.9); Lymphocytes % 3.5 % (15.3-44.8); MCH 32.5 pg (27.0-35.0); MCHC 32.6 g/dL (32.0-36.0); MCV 99.6 fL (80-100); MPV 8.4 fL (7.6-11.3); Platelets 278 thou/uL (152-406); RBC Red Blood Cell Count 3.64 M/uL (4.33-5.43); Red Cell Distribution Width 17.4 % (12.1-15.2)
[2023-10-29 05:25] LABS: Neutrophils % 85.2 % (41.7-73.7)
[2023-10-29 05:48] LABS: Anion Gap 6.8 mEq/L (5.0-15.0); Magnesium 2.1 mg/dL (1.6-2.4); Potassium 3.8 mEq/L (3.5-5.1)
[2023-10-29] MEDS: POTASSIUM CL SA 10 MEQ TAB PO ONE (08:19)
--- NOTE | 2023-10-29 11:53 | PN ---
Date of Progress Note: 10/29/2023 Subjective: The patient was admitted to the hospital with respiratory failure secondary to over volu me. The patient was started on diuresis, responds very well, weaned from BiPAP. The patient is feel ing well, the patient off Lasix for the last couple of days. Physical Examination: Vital Signs: Blood pressure 103/59, pulse of 93, afebrile. Chest: Crackles, bilateral. Heart: S1, S2. Systolic murmur. Abdomen: Soft, nontender. Extremities: Trace edema. Neurologic: Alert. No focality. Laboratory Data: Echocardiogram, ejection fraction of 35%, dilated right ventricular, pulmonary hype rtension. WBC 18.2, hemoglobin 11.8, sodium 129, potassium 3.8, bicarb 39, trending down, BUN 83, cr eatinine 1.4, calcium 9.4, magnesium 2.1. Current Medications: The patient is on include: 1.Promethazine. 2.Eliquis. 3.Amiodarone. 4.Entresto. 5.Fentanyl. 6.Breathing treatment. Assessment And Plan: 1.Acute kidney injury secondary to cardiorenal, poor perfusion, ATN. I am going to resume the patie nt on midodrine and we will resume Lasix. 2.Cardiogenic shock, over volume secondary to [id number] NM with acute kidney injury. We will resume Lasix and we will follow up the patient. 3.Hyponatremia, dilutional, secondary to congestive heart failure. We will diurese. 4.Congestive right heart failure with exacerbation as above. EMILIANO/ILIR Voice ID: [id number] Report ID: [id number]
[2023-10-29] MEDS: NA CHLORIDE 0.9% IV SCH (12:10)
[2023-10-29] MEDS: FUROSEMIDE IV SCH (12:10)
--- NOTE | 2023-10-29 14:23 | P.PN ---
Subjective Date of Service: 10/29/23 Chief Complaint: Respiratory failure Subjective: No new changes, No C/O voiced, Tolerating diet, Ambulating, Improving Review of Systems 10-point ROS is otherwise unremarkable Physical Examination - Vital Signs Temperature: 98.1 F Blood Pressure: 94/46 Pulse: 98 Respirations: 18 Pulse Ox (%): 96 - Physical Exam General: Alert, In no apparent distress HEENT: Atraumatic, PERRLA, EOMI Neck: Supple, JVD not distended Respiratory: Clear to auscultation bilaterally, Normal air movement Cardiovascular: Regular rate/rhythm, Normal S1 S2 Gastrointestinal: Normal bowel sounds, No tenderness Musculoskeletal: No tenderness Integumentary: No rashes Neurological: Normal speech, Normal tone, Normal affect Lymphatics: No axilla or inguinal lymphadenopathy - Studies Medications List Reviewed: Yes Assessment And Plan - Current Problems (Diagnosis) (1) Acute on chronic combined systolic and diastolic heart failure Current Visit: Yes Status: Acute Plan: Patient had some SOB this morning and was resumed on lasix drip by nephrology 10 mg/hr for 10 hours agree on diamox Stop Entresto as patient BP is soft and creatinine is up monitor input and output monitor and correct electrolytes. (2) Shock Current Visit: Yes Status: Acute Plan: improved, off pressors. (3) Atrial fibrillation Current Visit: Yes Status: Acute Plan: Patient converted to sinus rhythm, with PVCs continue eliquis 5 mg po BID continue Amiodarone 200 mg po BID continue Lopressor 12.5 mg po BID
[2023-10-29] MEDS: MIDODRINE HCL 5 MG TABLET PO SCH (15:12)
[2023-10-29] MEDS ORDERED: FUROSEMIDE 40 MG/4 ML VIAL IV SCH (17:00)
--- NOTE | 2023-10-30 04:20 | P.PN ---
Date of Service: 10/29/23 Subjective Patient with worsening shortness of breath. starting on diuretics. Nephrology recommended Lasix drip. Will also consult Pulmonary at this time as patient with right ventricular dilatation with septal flattening indicative of severe pulmonary hypertension. Patient may benefit from phosphodiesterase inhibitor therapy. Otherwise, long-term prognosis is poor. Patient with metastatic breast cancer and want to get chemotherapy in the near future but unsure of his performance status as he gets really short of breath from minimal ambulation. Physical Examination - Vital Signs reviewed - Physical Exam General: Alert, In no apparent distress, Oriented x3 Respiratory: Basilar crackles with expiratory wheezing Cardiovascular: Regular rate/rhythm, Normal S1 S2, Systolic murmur Gastrointestinal: Normal bowel sounds, Soft and benign, Non-distended, No tenderness Musculoskeletal: No clubbing, No tenderness, Swelling Neurological: no focal deficits - Studies Imagings Data: Echocardiogram COMMENTS: 1. SIGNIFICANT VARIATION OF LEFT VENTRICULAR FUNCTION DUE TO ARRHYTHMIA, IN GENERAL MODERATE HYPOKINESIS (EJECTION FRACTION VARIATES BETWEEN 35-45%) 2. DILATED RIGHT VENTRICLE WITH FLATTENED SEPTUM (PRESSURE/ VOLUME OVERLOAD) 3. RIGHT VENTRICULAR FUCNTION MILD REDUCED 4. MILD TRICUSPID REGURGITATION 5. MODERATE PULMONARY HYPERTENSION (RIGHT VENTRICULAR SYSTOLIC PRESSURE 40-45 mmHg) 6. SMALL CIRCUMFERENTIAL PERICARDIAL EFFUSION 7. ELEVATED FILLING PRESSURE (RIGHT ATRIUM 15-20 mmHg) Venous Doppler Acute appearing thrombosis of the subclavian, internal jugular, and axillary veins Assessment & Plan - Problems (Diagnosis) (1) Acute on chronic combined systolic and diastolic heart failure (EF=35-40%) Current Visit: Yes Status: Acute (2) Atrial fibrillation Current Visit: Yes Status: Acute (3) RV dilatation with septal flattening Current Visit: Yes Status: Acute (4) Loculated pleural effusion s/p thoracentesis Current Visit: No Status: Acute (5) Severe pulmonary hypertension Current Visit: No Status: Acute (6) Elevated troponin Current Visit: No Status: Acute (7) History of breast cancer with metastasis Current Visit: No Status: Chronic (8) History of prostate cancer Current Visit: No Status: Chronic (9) Hypercapnic respiratory failure Current Visit: Yes Status: Acute (10) Compensatory metabolic alkalosis Current Visit: Yes Status: Acute - Plan Plan: 1. Patient with heart failure with reduced ejection fraction and the patient with a history of atrial fibrillation and RV dilataion with septal flattening and elevated right ventricular pressures consistent with severe pulmonary HTN; continue with diuresing and medication for rate control along with anticoagulation. Will need to continue monitoring cardiac status closely. Echocardiogram is pending. Monitor I's and O's as well. Monitor pulmonary status closely. Pulmonary consultation pending. May benefit from phosphodiesterase inhibitor therapy. 2. Patient with pleural effusion; status post thoracentesis. 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 3. Patient with breast and prostate cancer; prognosis is poor.; cultures pending. No evidence of infection at this time. Continue monitoring for inf ectious source. Patient is currently off antibiotics. 4. Hyponatremia; monitor sodium level closely 5. Patient with hypercapnic respiratory failure with compensatory metabolic alkalosis; CPAP or BiPAP at night. Monitor bicarb levels. Fluid overloaded 6. GI and DVT prophylaxis Discharge Plan: Home Plan to discharge in: Greater than 2 days - Advance Directives Does patient have a Living Will: No Does patient have a Durable POA for Healthcare: No - Code Status/Comfort Care Code Status Assessed: Yes Code Status: Full Code Critical Care: No Time Spent Managing PTS Care (In Minutes): 45
[2023-10-30 05:44] LABS: Absolute Eosinophils 0.1 K/uL (0-0.5); Absolute Lymphocytes (CBC) 0.7 K/uL (0.7-4.9); Absolute Neutrophil 16.5 K/uL (1.8-8.0); Basophils % 0.2 % (0-1.3); Eosinophils % 0.7 % (0-4.4); Hematocrit 34.5 % (39.6-49.0); Hemoglobin 11.2 g/dL (13.6-17.9); Lymphocytes % 3.6 % (15.3-44.8); MCH 31.8 pg (27.0-35.0); MCHC 32.4 g/dL (32.0-36.0); MCV 98.3 fL (80-100); MPV 8.2 fL (7.6-11.3); Monocytes % 10.5 % (3.3-12.3); Platelets 307 thou/uL (152-406); RBC Red Blood Cell Count 3.51 M/uL (4.33-5.43)
[2023-10-30 06:03] LABS: Magnesium 2.2 mg/dL (1.6-2.4)
[2023-10-30] MEDS: FUROSEMIDE IV SCH (10:29)
[2023-10-30] MEDS: NA CHLORIDE 0.9% IV SCH (10:29)
[2023-10-30] MEDS: ONDANSETRON 4 MG/2 ML VIAL IV ONE (11:57)
--- NOTE | 2023-10-30 11:59 | PN ---
Date of Progress Note: 10/30/2023 Subjective: Patient was admitted to the hospital with acute kidney injury secondary to cardiorenal. Patient responded very well. Lasix drip was held because of alkalosis. The patient's FiO2 requirem ent has been improved, but in the last 48 hours, patient continued to have shortness of breath. Lasi x resumed. The patient still has shortness of breath. Objective: Vital Signs: Blood pressure 122/69, pulse of 92. Chest: Crackles, bilateral, more prominent on right side. Heart: S1, S2. Systolic murmur. Abdomen: Soft, nontender. Extremity: Trace edema. Neurologic: Alert. No focality. Laboratory Data: WBC 19.4, hemoglobin 11.2. Sodium 129, potassium 4, bicarb 36, BUN 103, creatinine 1.7, calcium 9.1, phosphorus 2.2. Current Medications: The patient on include promethazine, midodrine 5 mg t.i.d., amiodarone, metopro lol 12.5 b.i.d., fentanyl, acetazolamide, KCl. Assessment And Plan: 1.Acute kidney injury secondary to cardiorenal. Continue to be on the overvolume side. I am going to go ahead and resume Lasix drip. I agree with holding Entresto for the time being. We will follow up the patient closely. 2.Hyponatremia secondary to dilutional secondary to congestive heart failure. We will resume diures is. 3.Hyperkalemia, resolved. 4.Disproportion BUN and creatinine secondary to prerenal, secondary to cardiorenal. Continue diures is. We will follow up. 5.Cardiogenic shock secondary to [id number] with right heart failure, overvolume, complicated with renal failure. We will resume diuresis as above. EMILIANO/ILIR Voice ID: [id number] Report ID: [id number]
--- NOTE | 2023-10-30 12:23 | P.PN ---
Subjective Date of Service: 10/30/23 Chief Complaint: Respiratory failure Subjective: No new changes, No C/O voiced, Tolerating diet, Ambulating, Improving Review of Systems 10-point ROS is otherwise unremarkable Physical Examination - Vital Signs Temperature: 97.3 F Blood Pressure: 112/55 Pulse: 93 Respirations: 18 Pulse Ox (%): 92 - Physical Exam General: Alert, In no apparent distress HEENT: Atraumatic, PERRLA, EOMI Neck: Supple, JVD not distended Respiratory: Clear to auscultation bilaterally, Normal air movement Cardiovascular: Regular rate/rhythm, Normal S1 S2 Gastrointestinal: Normal bowel sounds, No tenderness Musculoskeletal: No tenderness Integumentary: No rashes Neurological: Normal speech, Normal tone, Normal affect Lymphatics: No axilla or inguinal lymphadenopathy - Studies Medications List Reviewed: Yes Assessment And Plan - Current Problems (Diagnosis) (1) Acute on chronic combined systolic and diastolic heart failure Current Visit: Yes Status: Acute Plan: Patient had some SOB this morning and was resumed on lasix drip by nephrology 10 mg/hr agree on diamox monitor input and output monitor and correct electrolytes. (2) Shock Current Visit: Yes Status: Acute Plan: improved, off pressors. (3) Atrial fibrillation Current Visit: Yes Status: Acute Plan: Patient converted to sinus rhythm, with PVCs continue eliquis 5 mg po BID continue Amiodarone 200 mg po BID continue Toprol 12.5 mg po BID
[2023-10-30] MEDS: PANTOPRAZOLE 40MG TABLET PO SCH (13:06)
[2023-10-31] MEDS: NA CHLORIDE 0.9% IV SCH (05:06)
[2023-10-31] MEDS: FUROSEMIDE IV SCH (05:06)
[2023-10-31 05:34] LABS: Absolute Lymphocytes (CBC) 0.8 K/uL (0.7-4.9); Absolute Monocytes 1.7 K/uL (0.1-1.3); Absolute Neutrophil 22.4 K/uL (1.8-8.0); Basophils % 0.2 % (0-1.3); Eosinophils % 0.1 % (0-4.4); Hematocrit 26.5 % (39.6-49.0); Hemoglobin 8.4 g/dL (13.6-17.9); Lymphocytes % 3.1 % (15.3-44.8); MCH 31.3 pg (27.0-35.0); MCHC 31.7 g/dL (32.0-36.0); MCV 98.5 fL (80-100); MPV 8.7 fL (7.6-11.3); Neutrophils % 89.6 % (41.7-73.7); Nucleated Red Blood Cells % 0.1 % (0-0); Platelets 291 thou/uL (152-406); RBC Red Blood Cell Count 2.69 M/uL (4.33-5.43); Red Cell Distribution Width 16.7 % (12.1-15.2)
[2023-10-31 05:47] LABS: Anion Gap 10.9 mEq/L (5.0-15.0); Magnesium 2.1 mg/dL (1.6-2.4); Potassium 4.9 mEq/L (3.5-5.1)
[2023-10-31 06:17] VITALS: BMI 32.7
--- NOTE | 2023-10-31 06:51 | RAD REPORT ---
EXAM DESCRIPTION: RAD - Chest Single View - 10/31/2023 5:57 am CLINICAL HISTORY: pneumonia COMPARISON: Chest Single View dated 10/28/2023; Chest Single View dated 10/27/2023; Chest Single View da arielle 10/26/2023; Chest Single View dated 10/25/2023; Chest For Pe Angio dated 10/25/2023 FINDINGS: Lines: Right IJ approach Port-A-Cath with tip overlying the superior cavoatrial junction. A left IJ approach central line has tip at the left brachiocephalic vein. Note that this was confirme d on the CT from 10/25/2023. Lungs: Consolidation at the right lung base. Pleural: Right-sided pleural effusion. Cardiac: Cardiomegaly. Mediastinum: Within normal limits. Bones: No acute fractures. Other: None IMPRESSION: No significant change. Right pleural effusion and possible combination of atelectasis an d pneumonia at the right lung base is similar.
[2023-10-31] MEDS: PANTOPRAZOLE INJ 80 MG in NA CHLORIDE 0.9% 250 ML IV SCH (07:27)
[2023-10-31] MEDS: ALBUMIN HUMAN 25% 100 ML IV ONE (07:32)
[2023-10-31] MEDS: NA CHLORIDE 0.9% 250 ML ONE (08:16)
[2023-10-31] MEDS ORDERED: NOREPINEPHRINE 4 MG in D5W 250 ML IV SCH (09:00)
--- NOTE | 2023-10-31 10:45 | P.PN ---
Subjective Date of Service: 10/31/23 Chief Complaint: Renal failure malignant pleural effusion Subjective: Improving (Patient is improving denies any complaints renal function is significantly worsened with slight decline in his hemoglobin) Review of Systems General: Weakness Respiratory: Shortness of Breath Physical Examination - Vital Signs Temperature: 97.6 F Blood Pressure: 119/44 Pulse: 77 Respirations: 15 Pulse Ox (%): 94 - Physical Exam General: Alert, In no apparent distress, Oriented x3 Respiratory: Diminished (Diminished on the right side) Cardiovascular: No edema, Normal S1 S2 - Studies Medications List Reviewed: Yes Assessment And Plan - Current Problems (Diagnosis) (1) Pleural effusion Current Visit: Yes Status: Acute Plan: Thoracentesis shows a malignant pleural effusion appears to be stable if it gets worse then he may benefit from a Pleurx catheter (2) DVT of right axillary vein, acute Current Visit: Yes Status: Acute (3) Renal failure (ARF), acute on chronic Current Visit: Yes Status: Acute Plan: Patient's renal function has become significantly worse may be secondary to diuresis which has been stopped (4) GI bleeding Current Visit: Yes Status: Acute Plan: Patient had a drop in his hemoglobin due to GI bleeding DC Eliquis patient has been transfused 2 units of packed blood cells no GI available patient is on Protonix drip Qualifiers: GI bleed type/associated pathology: unspecified gastrointestinal hemorrhage type Qualified Code(s): K92.2 - Gastrointestinal hemorrhage, unspecified (5) Pulmonary hypertension Current Visit: Yes Status: Acute Plan: Patient has pulmonary hypertension there was no previous evidence of thromboembolism has some right ventricular dysfunction associated with some left ventricular dysfunction as well
--- NOTE | 2023-10-31 14:09 | EKG ---
Test Date: 2023-10-30 Test Time: 11:46:00 Yarn Wrapper: SYDNEY MEASUREMENT RESULTS: Intervals: Rate: 107 [place]: QRSD: 94 QT: 334 QTc: 445 [place]: P: [place]: QRS: 26 T: 38 INTERPRETIVE STATEMENTS: Atrial fibrillation with rapid ventricular response with a competing junctional pacemaker with premature ventricular or aberran Abnormal ECG Compared to ECG 10/28/2023 08:13:25 Sinus rhythm no longer present Electronically Signed On 10-31-23 14:05:52 CDT by Juan Diego De Leon
--- NOTE | 2023-10-31 14:17 | ECHO ---
HEIGHT: 6 ft 1 in WEIGHT: 247 lb 12.8 oz DATE OF STUDY: 10/31/[address]: Demarco Sabillon MD 2-DIMENSIONAL: YES M.MODE: YES DOPPLER: YES COLOR FLOW: YES TDS: NO PORTABLE: YES DEFINITY: NO BUBBLE STUDY: NO DIAGNOSIS: PULMONARY HYPERTENSION CARDIAC HISTORY: CATHERIZATION: SURGERY: PROSTHETIC VALVE: PACEMAKER: MEASUREMENTS (cm) DIASTOLIC (NORMALS) SYSTOLIC (NORMALS) IVSd 1.2 (0.6-1.2) LA Diam (1.9-4.0) LVEF 40-45% LVIDd 5.2 (3.5-5.7) LVIDs 4.0 (2.0-3.5) %FS 23% LVPWd 1.3 (0.6-1.2) Ao Diam 3.6 (2.0-3.7) 2 DIMENSIONAL ASSESSMENT: RIGHT ATRIUM: NORMAL LEFT ATRIUM: ENLARGED RIGHT VENTRICLE: NORMAL LEFT VENTRICLE: NORMAL TRICUSPID VALVE: MILD TRICUSPID REGURGITATION MITRAL VALVE: NORMAL PULMONIC VALVE: MILD PULMONIC INSUFFICIENCY AORTIC VALVE: NORMAL PERICARDIAL EFFUSION: TRIVIAL AORTIC ROOT: NORMAL LEFT VENTRICULAR WALL MOTION: MILD GLOBAL HYPOKINESIS. DOPPLER/COLOR FLOW: SEE BELOW. COMMENTS: 1. MILDLY DEPRESSED LEFT VENTRICULAR EJECTION FRACTION 40-45%. 2. LEFT ATRIAL ENLARGEMENT 3. RIGHT VENTRICULAR SYSTOLIC PRESSURE IS NORMAL, LESS THAN 35mmHg. TECHNOLOGIST: DIDIER HUSAIN
[2023-10-31 15:43] LABS: Hematocrit 26.2 % (39.6-49.0); Hemoglobin 8.8 g/dL (13.6-17.9)
[2023-10-31 16:24] VITALS: O2SAT 97
--- NOTE | 2023-10-31 18:12 | PN ---
Date of Progress Note: 10/31/2023 Subjective: Seen by bedside. His creatinine has significantly gone up over the past [address] normalization of his creatinine, he is back into acute kidney failure. Review of Systems: There is no significant shortness of breath. There is some altered mental condition as his BUN is li ke 145. Physical Examination: Vital Signs: Reviewed. Head and Neck: Pupils are equal, reactive to light. Intact eye movements. No JVD. No cervical lym phadenopathy. Neck is supple. Thyroid is not enlarged. Lungs: There are decreased breathing sounds. No accessory muscle use or muscle retraction. Heart: Irregular. No extra sounds. Abdomen: Soft, nontender. Bowel sounds positive. No organomegaly. No masses or hernia. No rigidi ty or rebound. Extremities: No edema, clubbing, cyanosis. Intact pulses. Skin: No rash. No nodule. Neurologic: Alert, awake, and with confusion. No acute focal deficits appreciated. Investigations: BUN is 145, creatinine is 2.73, sodium is 126, and chloride is 87. Assessment And Recommendations: 1.Acute renal failure. I looked at his echo. His filling pressures are very normal. This patient is over-diuresed. Discontinue all diuretics and give him gentle hydration overnight at normal saline at 50 cc/hour. Monitor BUN and creatinine. Discussed the case with Nephrology. 2.Congestive heart failure, systolic. His ejection fraction improved after converting to normal sin us rhythm. Continue supportive management. 3.Atrial fibrillation, converted to sinus rhythm and he has some PVCs. Continue metoprolol and cont inue amiodarone. 4.Shock condition. I believe it is all hypovolemic at this point and to gently hydrate him overnigh t. 5.Low sodium, hyponatremia and low chloride due to severe dehydration, and gentle IV fluid managemen t will be implemented. SR/MODL Voice ID: [id number] Report ID: [id number]
[2023-10-31 18:22] LABS: Absolute Basophils 0.1 K/uL (0-0.5); Absolute Lymphocytes (CBC) 0.8 K/uL (0.7-4.9); Absolute Neutrophil 19.6 K/uL (1.8-8.0); Basophils % 0.3 % (0-1.3); Eosinophils % 0.1 % (0-4.4); Hematocrit 24.9 % (39.6-49.0); Hemoglobin 8.2 g/dL (13.6-17.9); Lymphocytes % 3.4 % (15.3-44.8); MCH 31.9 pg (27.0-35.0); MCHC 33.1 g/dL (32.0-36.0); MCV 96.1 fL (80-100); MPV 8.4 fL (7.6-11.3); Monocytes % 9.1 % (3.3-12.3); Neutrophils % 87.1 % (41.7-73.7); Nucleated Red Blood Cells % 0.1 % (0-0); Platelets 265 thou/uL (152-406); RBC Red Blood Cell Count 2.59 M/uL (4.33-5.43); Red Cell Distribution Width 16.4 % (12.1-15.2)
[2023-10-31 18:31] LABS: Anion Gap 13.6 mEq/L (5.0-15.0); Potassium 4.6 mEq/L (3.5-5.1)
[2023-10-31 18:53] LABS: Band Neutrophils 5 % (0-1); Blood Morphology Comment NOT SEEN (NOT SEEN); Differential Total Cells Count 100; Lymphocytes 5 % (15-42); Monocytes 6 % (0-10); Platelet Estimate ADEQ; Segmented Neutrophils 84 % (40-80)
[2023-10-31] MEDS ORDERED: NA CHLORIDE 0.9% 250 ML ONE (19:19)
--- NOTE | 2023-10-31 19:42 | PN ---
Date of Progress Note: 10/31/2023 Subjective: The patient's BUN and creatinine are trending up. Echo did not show signs of fluid over load. Lasix stopped. The patient received albumin. Objective: Vital Signs: Temperature 97.2, pulse rate 96, blood pressure 115/58. General: Awake and alert, obese, in mild distress. Neck: Supple. No elevated JVD. Heart: Regular rate and rhythm. Normal S1, S2. Chest: Decreased air entry to the bases. Patient is tachypneic. No wheezes. Abdomen: Soft and nontender. Extremities: No edema. Medications: Include metoprolol, midodrine, pantoprazole. Assessment And Plan: 1.Acute kidney injury. The patient initially had acute kidney injury, creatinine is improving. Cre atinine trended up. Right now, patient's BUN is more than 130, possibly due to his acute kidney inju ry. Unclear etiology, possibly due to acute tubular necrosis. The patient has no sign of fluid aspi ration right now with hyponatremia and BUN more than 100. If BUN continued to increase, then patient will need to start renal replacement therapy. 2.Hyponatremia, likely due to fluid retention as above. The patient currently is n.p.o. Avoid hypo tonic fluid. 3.Metastatic lung cancer. The patient is not on radiation or chemotherapy. 4.Heart failure with reduced ejection fraction. Ejection fraction of 40%. No signs of fluid on ech o. No signs of fluid overload, diuretic on hold. 5.Respiratory distress, possibly due to metastatic cancer. Continue oxygen support. 6.Overall patient with poor prognosis. Continue supportive care. We will proceed renal replacement therapy tomorrow if BUN continued to increase. AA/MODL Voice ID: [id number] Report ID: [id number]
[2023-10-31] MEDS: NA CHLORIDE 0.9% 1,000 ML IV SCH (20:10)
[2023-10-31 20:19] LABS: CHOLESTEROL, PLEURAL FLUID 75 mg/dL; LD, PLEURAL FLUID 782 U/L; TOTAL PROTEIN, PLEURAL FLUID 3.8 g/dL
[2023-10-31] MEDS: ALBUMIN HUMAN 25% 50 ML IV ONE (21:18)
[2023-10-31] MEDS: ALBUMIN HUMAN 25% 200 ML IV ONE (21:22)
[2023-11-01 02:29] LABS: Hematocrit 20.6 % (39.6-49.0); Hemoglobin 6.8 g/dL (13.6-17.9)
[2023-11-01 04:08] LABS: Absolute Lymphocytes (CBC) 0.8 K/uL (0.7-4.9); Absolute Monocytes 2.4 K/uL (0.1-1.3); Absolute Neutrophil 21.9 K/uL (1.8-8.0); Basophils % 0.1 % (0-1.3); Eosinophils % 0.1 % (0-4.4); Hematocrit 19.4 % (39.6-49.0); Hemoglobin 6.4 g/dL (13.6-17.9); Lymphocytes % 3.2 % (15.3-44.8); MCH 30.4 pg (27.0-35.0); MCHC 32.9 g/dL (32.0-36.0); MCV 92.4 fL (80-100); MPV 8.8 fL (7.6-11.3); Monocytes % 9.4 % (3.3-12.3); Neutrophils % 87.2 % (41.7-73.7); Nucleated Red Blood Cells % 0.2 % (0-0); Platelets 235 thou/uL (152-406); Red Cell Distribution Width 17.7 % (12.1-15.2)
[2023-11-01 04:15] LABS: PT Prothrombin Time 16.5 SECONDS (9.4-12.5); PTT, Activated Partial Thromb 32.9 SECONDS (24.3-36.9); Protime INR 1.49
[2023-11-01 04:16] LABS: Magnesium 1.9 mg/dL (1.6-2.4)
--- NOTE | 2023-11-01 04:39 | P.PN ---
Date of Service: 10/30/23 Subjective Patient's respiratory status has improved. Patient out of bed and to the chair. Patient is clinically feeling a little bit better. Renal function continues to worsen. Patient on Lasix drip. Physical Examination - Vital Signs reviewed - Physical Exam General: Alert, In no apparent distress, Oriented x3 Respiratory: Basilar crackles with expiratory wheezing Cardiovascular: Regular rate/rhythm, Normal S1 S2, Systolic murmur Gastrointestinal: Normal bowel sounds, Soft and benign, Non-distended, No tenderness Musculoskeletal: No clubbing, No tenderness, Swelling Neurological: no focal deficits - Studies Imagings Data: Echocardiogram COMMENTS: 1. SIGNIFICANT VARIATION OF LEFT VENTRICULAR FUNCTION DUE TO ARRHYTHMIA, IN GENERAL MODERATE HYPOKINESIS (EJECTION FRACTION VARIATES BETWEEN 35-45%) 2. DILATED RIGHT VENTRICLE WITH FLATTENED SEPTUM (PRESSURE/ VOLUME OVERLOAD) 3. RIGHT VENTRICULAR FUCNTION MILD REDUCED 4. MILD TRICUSPID REGURGITATION 5. MODERATE PULMONARY HYPERTENSION (RIGHT VENTRICULAR SYSTOLIC PRESSURE 40-45 mmHg) 6. SMALL CIRCUMFERENTIAL PERICARDIAL EFFUSION 7. ELEVATED FILLING PRESSURE (RIGHT ATRIUM 15-20 mmHg) Venous Doppler Acute appearing thrombosis of the subclavian, internal jugular, and axillary veins Assessment & Plan - Problems (Diagnosis) (1) Acute on chronic combined systolic and diastolic heart failure (EF=35-40%) Current Visit: Yes Status: Acute (2) Atrial fibrillation Current Visit: Yes Status: Acute (3) RV dilatation with septal flattening Current Visit: Yes Status: Acute (4) Loculated pleural effusion s/p thoracentesis Current Visit: No Status: Acute (5) Severe pulmonary hypertension Current Visit: No Status: Acute (6) Elevated troponin Current Visit: No Status: Acute (7) History of breast cancer with metastasis Current Visit: No Status: Chronic (8) History of prostate cancer Current Visit: No Status: Chronic (9) Hypercapnic respiratory failure compensatory metabolic alkalosis Current Visit: Yes Status: Acute (10) Acute Kidney injury Current Visit: Yes Status: Acute - Plan Plan: 1. Patient with HF with reduced EF (35-40%) and the patient with a history of AF and RV dilataion with septal flattening and elevated RVP consistent with severe pulmonary HTN; continue with diuresing and medication for rate control along with anticoagulation. Will need to continue monitoring cardiac status closely. Echocardiogram is reviewed. Monitor I's and O's as well. Monitor pulmonary status closely. Pulmonary consultation appredciated; no PDEI at this time. 2. Patient with pleural effusion; status post thoracentesis. Pt with a malignant pleural effusion. 3. Patient with breast and prostate cancer; prognosis is poor; pathology with malignant pleural effusion. 4. Hyponatremia; monitor sodium level closely 5. Patient with hypercapnic respiratory failure with compensatory metabolic alkalosis; CPAP or BiPAP at night. Monitor bicarb levels. Nephrology recc diuretic drip 6. Monitor BUN/Cr 7. GI and DVT prophylaxis Discharge Plan: Home Plan to discharge in: Greater than 2 days - Advance Directives Does patient have a Living Will: No Does patient have a Durable POA for Healthcare: No - Code Status/Comfort Care Code Status Assessed: Yes Code Status: Full Code Critical Care: No Time Spent Managing PTS Care (In Minutes): 45
[2023-11-01] MEDS ORDERED: PROTHROMBIN COMPLEX CONCENTRATE (HUMAN) 500 UNIT VIAL IV ONE (04:43)
--- NOTE | 2023-11-01 04:47 | P.PN ---
Date of Service: 10/31/23 Subjective Patient developed GI bleed overnight. Patient continues to drop Hgb-transfused 2u PRBC; Hgb increased minimally. Spoke with Nephrology and contemplating hemodialysis. Surgery consulted. Patient is clinically feeling better. Patient with JASON and LGIB; monitor volume status closely. Rate needs to be controlled; patient is fragile and prognosis is poor. Physical Examination - Vital Signs reviewed - Physical Exam General: Alert, In no apparent distress, Oriented x3 Respiratory: Basilar crackles with expiratory wheezing Cardiovascular: Regular rate/rhythm, Normal S1 S2, Systolic murmur Gastrointestinal: Normal bowel sounds, Soft and benign, Non-distended, No tenderness Musculoskeletal: No clubbing, No tenderness, Swelling Neurological: no focal deficits - Studies Imagings Data: Echocardiogram COMMENTS: 1. SIGNIFICANT VARIATION OF LEFT VENTRICULAR FUNCTION DUE TO ARRHYTHMIA, IN GENERAL MODERATE HYPOKINESIS (EJECTION FRACTION VARIATES BETWEEN 35-45%) 2. DILATED RIGHT VENTRICLE WITH FLATTENED SEPTUM (PRESSURE/ VOLUME OVERLOAD) 3. RIGHT VENTRICULAR FUCNTION MILD REDUCED 4. MILD TRICUSPID REGURGITATION 5. MODERATE PULMONARY HYPERTENSION (RIGHT VENTRICULAR SYSTOLIC PRESSURE 40-45 mmHg) 6. SMALL CIRCUMFERENTIAL PERICARDIAL EFFUSION 7. ELEVATED FILLING PRESSURE (RIGHT ATRIUM 15-20 mmHg) Venous Doppler Acute appearing thrombosis of the subclavian, internal jugular, and axillary veins Assessment & Plan - Problems (Diagnosis) (1) Acute on chronic combined systolic and diastolic heart failure (EF=35-40%) Current Visit: Yes Status: Acute (2) Atrial fibrillation Current Visit: Yes Status: Acute (3) RV dilatation with septal flattening Current Visit: Yes Status: Acute (4) Loculated pleural effusion s/p thoracentesis Current Visit: No Status: Acute (5) Severe pulmonary hypertension Current Visit: No Status: Acute (6) Elevated troponin Current Visit: No Status: Acute (7) History of breast cancer with metastasis Current Visit: No Status: Chronic (8) History of prostate cancer Current Visit: No Status: Chronic (9) Hypercapnic respiratory failure compensatory metabolic alkalosis Current Visit: Yes Status: Acute (10) Acute Kidney injury Current Visit: Yes Status: Acute - Plan Plan: 1. Patient with HF with reduced EF (35-40%) and the patient with a history of AF and RV dilataion with septal flattening and elevated RVP consistent with severe pulmonary HTN; continue with diuresing and medication for rate control along with anticoagulation. Will need to continue monitoring cardiac status closely. Echocardiogram is reviewed. Monitor I's and O's as well. Monitor pulmonary status closely. Pulmonary consultation appredciated; no PDEI at this time. 2. Patient with pleural effusion; status post thoracentesis. Pt with a malignant pleural effusion. 3. Patient with breast and prostate cancer; prognosis is poor; pathology with malignant pleural effusion. 4. Hyponatremia; monitor sodium level closely 5. Patient with hypercapnic respiratory failure with compensatory metabolic alkalosis; CPAP or BiPAP at night. Monitor bicarb levels. Nephrology recc diuretic drip 6. Monitor BUN/Cr 7. GI and DVT prophylaxis Discharge Plan: Home Plan to discharge in: Greater than 2 days - Advance Directives Does patient have a Living Will: No Does patient have a Durable POA for Healthcare: No - Code Status/Comfort Care Code Status Assessed: Yes Code Status: Full Code Critical Care: No Time Spent Managing PTS Care (In Minutes): 45
[2023-11-01 04:54] VITALS: TEMP 97
[2023-11-01] MEDS ORDERED: NA CHLORIDE 0.9% 250 ML IV SCH (05:00)
--- NOTE | 2023-11-01 05:19 | P.PN ---
Date of Service: 11/01/23 Subjective Overnight patient had even more bleeding. Patient was given 2 additional units of packed red blood cells. Hemoglobin has decreased all the way to 6.8. Patient with worsening uremia and renal insufficiency after the secondary bleeding. Transferring to tertiary care facility. Physical Examination - Vital Signs reviewed - Physical Exam General: Alert, In no apparent distress, Oriented x3 Respiratory: Basilar crackles with expiratory wheezing Cardiovascular: Regular rate/rhythm, Normal S1 S2, Systolic murmur Gastrointestinal: Normal bowel sounds, Soft and benign, Non-distended, No tenderness Musculoskeletal: No clubbing, No tenderness, Swelling Neurological: no focal deficits - Studies Imagings Data: Echocardiogram COMMENTS: 1. SIGNIFICANT VARIATION OF LEFT VENTRICULAR FUNCTION DUE TO ARRHYTHMIA, IN GENERAL MODERATE HYPOKINESIS (EJECTION FRACTION VARIATES BETWEEN 35-45%) 2. DILATED RIGHT VENTRICLE WITH FLATTENED SEPTUM (PRESSURE/ VOLUME OVERLOAD) 3. RIGHT VENTRICULAR FUCNTION MILD REDUCED 4. MILD TRICUSPID REGURGITATION 5. MODERATE PULMONARY HYPERTENSION (RIGHT VENTRICULAR SYSTOLIC PRESSURE 40-45 mmHg) 6. SMALL CIRCUMFERENTIAL PERICARDIAL EFFUSION 7. ELEVATED FILLING PRESSURE (RIGHT ATRIUM 15-20 mmHg) Venous Doppler Acute appearing thrombosis of the subclavian, internal jugular, and axillary veins Assessment & Plan - Problems (Diagnosis) (1) Acute on chronic combined systolic and diastolic heart failure (EF=35-40%) Current Visit: Yes Status: Acute (2) Atrial fibrillation Current Visit: Yes Status: Acute (3) RV dilatation with septal flattening Current Visit: Yes Status: Acute (4) Loculated pleural effusion s/p thoracentesis Current Visit: No Status: Acute (5) Severe pulmonary hypertension Current Visit: No Status: Acute (6) Elevated troponin Current Visit: No Status: Acute (7) History of breast cancer with metastasis Current Visit: No Status: Chronic (8) History of prostate cancer Current Visit: No Status: Chronic (9) Hypercapnic respiratory failure compensatory metabolic alkalosis Current Visit: Yes Status: Acute (10) Acute Kidney injury Current Visit: Yes Status: Acute - Plan Continue with plan of care as mentioned below: 1. Patient with gastrointestinal bleeding. Patient transfused 2 units during the daytime but hemoglobin dropped down to 6.8. Patient given 2 additional units. On a PPI drip. Patient's prognosis is poor. Transferring to tertiary care facility. 2. Patient with pleural effusion; status post thoracentesis. Pt with a malignant pleural effusion. 3. Patient with breast and prostate cancer; prognosis is poor; pathology with malignant pleural effusion. 4. Hyponatremia; monitor sodium level closely 5. Patient with hypercapnic respiratory failure with compensatory metabolic alkalosis; CPAP or BiPAP at night. Monitor bicarb levels. Nephrology recc diuretic drip 6. Worsening BUN/Cr 7. GI and DVT prophylaxis Discharge Plan: Home Plan to discharge in: Greater than 2 days - Advance Directives Does patient have a Living Will: No Does patient have a Durable POA for Healthcare: No - Code Status/Comfort Care Code Status Assessed: Yes Code Status: Full Code Critical Care: No Time Spent Managing PTS Care (In Minutes): 45 Overnight patient with more bleeding.
--- NOTE | 2023-11-01 05:57 | P.DS ---
Admission Date: 10/22/23 Discharge Date: 11/01/23 Disposition: TRANSFER TO [facility] Discharge Condition: CRITICAL Reason for Admission: Renal failure malignant pleural effusion Vital Signs/Physical Exam: Temp Pulse Resp BP Pulse Ox 97 F 88 14 95/60 96 11/01/23 05:00 11/01/23 05:00 11/01/23 05:00 11/01/23 05:00 11/01/23 05:00 Laboratory Data at Discharge: WBC 25.10 thou/uL (4.3-10.9) H 11/01/23 03:45 Hgb 6.4 g/dL (13.6-17.9) L 11/01/23 03:45 Hct 19.4 % (39.6-49.0) L 11/01/23 03:45 Plt Count 235 thou/uL (152-406) 11/01/23 03:45 PT 16.5 SECONDS (9.4-12.5) H 11/01/23 03:45 INR 1.49 11/01/23 03:45 APTT 32.9 SECONDS (24.3-36.9) 11/01/23 03:45 Sodium 128 mEq/L (136-145) L 11/01/23 03:45 Potassium 5.0 mEq/L (3.5-5.1) 11/01/23 03:45 BUN 180 mg/dL (7-18) H 11/01/23 03:45 Creatinine 3.24 mg/dL (0.70-1.30) H 11/01/23 03:45 Glucose 124 mg/dL (74-106) H 11/01/23 03:45 Uric Acid 9.1 mg/dL (3.5-7.2) H 10/24/23 04:30 Phosphorus 3.0 mg/dL (2.5-4.9) 10/28/23 05:00 Magnesium 1.9 mg/dL (1.6-2.4) 11/01/23 03:45 Total Bilirubin 0.6 mg/dL (0.2-1.0) 10/27/23 15:52 AST 62 U/L (15-37) H 10/27/23 15:52 ALT 43 U/L (16-61) 10/27/23 15:52 Alkaline Phosphatase 85 U/L (45-117) 10/27/23 15:52 Lipase 52 U/L (13-75) 10/22/23 09:34 Home Medications: Spironolactone 25 mg PO BEDTIME 08/07/23 Exemestane [Aromasin] 25 mg PO BEDTIME 10/14/23 Sacubitril/Valsartan [Entresto 97 mg-103 mg Tablet] 1 tab PO BID 10/14/23 Physician Discharge Instructions: Transfer to [facility] Followup: Hanna Guzman, KELSY [Primary Care Provider] -
[2023-11-01 06:09] LABS: Arterial Blood Carboxyhemoglob 1.5 % (0-1.5); Blood Gas Oxyhemoglobin 94.7 % (94-97); Blood Gas THB 7.5 g/dl (12-18); Blood O2 Saturation 97.5 % (92-98.5)
[2023-11-01 06:25] VITALS: BP 108/85
--- NOTE | 2023-11-01 06:30 | P.DS ---
Discharge Date: 11/01/23 Disposition: TRANSFER TO [facility] Discharge Condition: CRITICAL Reason for Admission: Renal failure malignant pleural effusion - Problems (1) Acute on chronic combined systolic and diastolic heart failure Current Visit: Yes Status: Acute (2) Atrial fibrillation Current Visit: Yes Status: Acute (3) Pulmonary embolism Current Visit: Yes Status: Acute Qualifiers: Acute cor pulmonale presence: with acute cor pulmonale (4) Abnormal CT scan Current Visit: No Status: Acute (5) Asymptomatic LV dysfunction Current Visit: No Status: Acute (6) Elevated troponin Current Visit: No Status: Acute (7) History of breast cancer Current Visit: No Status: Chronic (8) History of prostate cancer Current Visit: No Status: Chronic (9) Hypercapnic respiratory failure Current Visit: Yes Status: Acute (10) Metabolic alkalosis Current Visit: Yes Status: Acute Brief History of Present Illness: Patient is a 62-year-old gentleman came to the hospital with shortness of breath. Patient was found to have heart failure with reduced ejection fraction as well as pulmonary hypertension and right-sided heart failure. Patient had right ventricular dilatation as well as flattening of the septum indicative of increased pulmonary pressures. Patient had a loculated pleural effusion and patient had a thoracentesis performed(patient was found to have a malignant pleural effusion per pathology). Patient has prostate cancer as well as breast cancer. Patient had chemotherapy which they feel like was the etiology of patient's heart failure. Patient was also found to have a DVT in the emergency room. Patient was admitted to the hospital for further treatment. Hospital Course: During patient's hospital course patient was diuresed aggressively. Patient developed renal failure and developed a secondary GI bleed. Patient's hemoglobin has dropped all the way down to 6.4 after 2 units of packed red blood cells were given. Patient has significant uremia and renal sufficiency at this time. Patient's prognosis is poor. Electric Mule Driver, Dr. Wu, assisted in arranging for transfer to [facility]. Patient was transferred for higher level of care as we needed GI for patient's GI bleeding as well as possibly renal replacement therapy in the setting of hypotension. Spoke with family and updated them on patient's clinical status. At this time, patient will be transferred to a tertiary care facility. Vital Signs/Physical Exam: Temp Pulse Resp BP Pulse Ox 97 F 90 17 108/85 98 08/10/24 05:00 11/01/23 06:00 11/01/23 06:00 11/01/23 06:00 11/01/23 06:00 General: Alert, In no apparent distress, Oriented x3 Laboratory Data at Discharge: WBC 25.10 thou/uL (4.3-10.9) H 11/01/23 03:45 Hgb 6.4 g/dL (13.6-17.9) L 11/01/23 03:45 Hct 19.4 % (39.6-49.0) L 11/01/23 03:45 Plt Count 235 thou/uL (152-406) 11/01/23 03:45 PT 16.5 SECONDS (9.4-12.5) H 11/01/23 03:45 INR 1.49 11/01/23 03:45 APTT 32.9 SECONDS (24.3-36.9) 11/01/23 03:45 Sodium 128 mEq/L (136-145) L 11/01/23 03:45 Potassium 5.0 mEq/L (3.5-5.1) 11/01/23 03:45 BUN 180 mg/dL (7-18) H 11/01/23 03:45 Creatinine 3.24 mg/dL (0.70-1.30) H 11/01/23 03:45 Glucose 124 mg/dL (74-106) H 11/01/23 03:45 Uric Acid 9.1 mg/dL (3.5-7.2) H 10/24/23 04:30 Phosphorus 3.0 mg/dL (2.5-4.9) 10/28/23 05:00 Magnesium 1.9 mg/dL (1.6-2.4) 11/01/23 03:45 Total Bilirubin 0.6 mg/dL (0.2-1.0) 10/27/23 15:52 AST 62 U/L (15-37) H 10/27/23 15:52 ALT 43 U/L (16-61) 10/27/23 15:52 Alkaline Phosphatase 85 U/L (45-117) 10/27/23 15:52 Lipase 52 U/L (13-75) 10/22/23 09:34 Home Medications: Spironolactone 25 mg PO BEDTIME 08/07/23 Exemestane [Aromasin] 25 mg PO BEDTIME 10/14/23 Sacubitril/Valsartan [Entresto 97 mg-103 mg Tablet] 1 tab PO BID 10/14/23 Physician Discharge Instructions: Transfer to [facility] Followup: Hanna Guzman, PAC [Primary Care Provider] - Time spent managing pt's care (in minutes): 45
== END 2023-11-01 06:20 | disposition short-term general hospital (02) | DRG 871 ==
LOC: ER 07:26 → ERHOLD 13:32 → 3RD-ICU 15:25
PROVIDERS: ADMIT Hospitalist; ATTEND Hospitalist
PROC: 02HV33Z Insertion of Infusion Device into Superior Vena Cava, Percutaneous Approach (ICD-10-PCS; principal; 2023-10-22)
PROC: 3E043XZ Introduction of Vasopressor into Central Vein, Percutaneous Approach (ICD-10-PCS; 2023-10-22)
PROC: 4A033R1 Measurement of Arterial Saturation, Peripheral, Percutaneous Approach (ICD-10-PCS; 2023-10-22)
PROC: 5A09557 Assistance with Respiratory Ventilation, Greater than 96 Consecutive Hours, Continuous Positive Airway Pressure (ICD-10-PCS; 2023-10-22)
PROC: 0T9B70Z Drainage of Bladder with Drainage Device, Via Natural or Artificial Opening (ICD-10-PCS; 2023-10-22)
PROC: 5A0945A Assistance with Respiratory Ventilation, 24-96 Consecutive Hours, High Flow/Velocity Cannula (ICD-10-PCS; 2023-10-27)
PROC: 0W993ZZ Drainage of Right Pleural Cavity, Percutaneous Approach (ICD-10-PCS; 2023-10-27)
PROC: 30233N1 Transfusion of Nonautologous Red Blood Cells into Peripheral Vein, Percutaneous Approach (ICD-10-PCS; 2023-10-31)
DX: A41.9 Sepsis, unspecified organism (principal); I21.4 Non-ST elevation (NSTEMI) myocardial infarction; J18.9 Pneumonia, unspecified organism; R65.21 Severe sepsis with septic shock; J96.01 Acute respiratory failure with hypoxia; J96.02 Acute respiratory failure with hypercapnia; I50.43 Acute on chronic combined systolic (congestive) and diastolic (congestive) heart failure; N17.0 Acute kidney failure with tubular necrosis; I26.99 Other pulmonary embolism without acute cor pulmonale; R57.0 Cardiogenic shock; J91.0 Malignant pleural effusion; C78.00 Secondary malignant neoplasm of unspecified lung; C79.51 Secondary malignant neoplasm of bone; C78.7 Secondary malignant neoplasm of liver and intrahepatic bile duct; I42.7 Cardiomyopathy due to drug and external agent; E87.1 Hypo-osmolality and hyponatremia; Z68.42 Body mass index [BMI] 45.0-49.9, adult; N39.0 Urinary tract infection, site not specified; I82.A11 Acute embolism and thrombosis of right axillary vein; E87.3 Alkalosis; K92.2 Gastrointestinal hemorrhage, unspecified; E66.9 Obesity, unspecified; E87.6 Hypokalemia; I49.3 Ventricular premature depolarization; I27.20 Pulmonary hypertension, unspecified; I48.91 Unspecified atrial fibrillation; E78.5 Hyperlipidemia, unspecified; K21.9 Gastro-esophageal reflux disease without esophagitis; E87.5 Hyperkalemia; T45.1X5A Adverse effect of antineoplastic and immunosuppressive drugs, initial encounter; Z85.3 Personal history of malignant neoplasm of breast; Z90.79 Acquired absence of other genital organ(s); Z92.21 Personal history of antineoplastic chemotherapy; Z85.46 Personal history of malignant neoplasm of prostate; Z90.10 Acquired absence of unspecified breast and nipple; Z90.49 Acquired absence of other specified parts of digestive tract; Z79.899 Other long term (current) drug therapy
CPT/HCPCS: 32555; 36415; 36430; 36569; 36600; 71045; 71250; 71275; 74176; 76604; 80048; 80053; 80069; 80202; 81001; 82570; 82805; 82945; 82947; 83605; 83615; 83690; 83735; 83880; 84100; 84145; 84156; 84157; 84311; 84443; 84484; 84550; 85014; 85018; 85025; 85610; 85730; 86850; 86900; 86901; 86920; 87015; 87040; 87070; 87086; 87088; 87102; 87116; 87206; 88108; 88305; 89050; 93005; 93306; 93970; 93971; 94640; 94660; 97116; 97162; 97530; 97542; 99285; J0282; J0612; J0692; J1644; J1720; J2405; J2470; J2550; J3475; J3480; J7030; J7040; J7050; J7060; J7168; J7605; J7613; J7644; P9016; P9047; Q9967